=== PATIENT | male | born 1955 | race Two or more races ===

== ENCOUNTER → 2024-12-22 | Outpatient (CLI) | payer MEDICAID ==
[2024-12-22 13:50] LABS: Chloride 104 mmol/L (98-107); Potassium 3.7 mmol/L (3.5-5.1); Sodium 141 mmol/L (136-145)
[2024-12-22 13:51] LABS: Anion Gap 9 (5-15); Calcium 9.8 mg/dL (8.7-10.4); Carbon Dioxide 28 mmol/L (20-31)
[2024-12-22 13:56] LABS: BUN/Creatinine Ratio 15.7 (10.0-20.0); Blood Urea Nitrogen 19 mg/dL (9-23)
[2024-12-22 14:10] LABS: Glucose 108 mg/dL (74-106)
== END | disposition home or self-care (01) ==
LOC: LAB 13:13
PROVIDERS: ATTEND Urology
DX: N40.1 Benign prostatic hyperplasia with lower urinary tract symptoms (principal)
CPT/HCPCS: 36415; 80048; 84153

== ENCOUNTER 2025-01-05 15:53 | Inpatient (IN) | payer MEDICAID ==
[~2025-01-05] VITALS: Ht 160 cm; Wt 79.2 kg
--- NOTE | 2025-01-05 17:08 | ED.PDOC ---
General HPI Comments 69 y/o M, with PMHx of HTN and kidney stones presents to the ED for CC of tube placement. Patient reports, he was sent by urologist for nephrostomy tube placement d/t hydronephrosis. Patient endorses experiencing symptoms of flank pain and urinary retention as a result. Patient denies fever, scrotal swelling, penile discharge, nausea, or vomiting. No other symptoms or modifying factors present at this time. Chief Complaint: Flank Pain Time Seen by MD: 16:45 Reviewed notes: Nurses Notes, Medications, Allergies Allergies: Coded Allergies: NO KNOWN ALLERGIES (Unverified , 01/05/25) Information Source: Patient Mode of Arrival: Wheelchair Severity: Moderate Timing: Days Duration: Since onset Prehospital treatment: None Onset: Spontaneous Symptoms: Inability to void History of: None Penile discharge: None Modifying factors: None associated signs and symptoms: Flank Pain Past Medical History PAST MEDICAL HISTORY: HTN, Kidney Stones Surgical History: Denies all surgeries Family History Family History: Unknown Social History Smoker: Non-Smoker Alcohol: Denies ETOH Use Drugs: Denies Drug Use Lives In: Home Constitutional: denies: chills, diaphoresis, fatigue, fever, malaise, sweats, weakness, others EENTM: denies: blurred vision, double vision, ear bleeding, ear discharge, ear drainage, ear pain, ear ringing, eye pain, eye redness, hearing loss, mouth pain, mouth swelling, nasal discharge, nose bleeding, nose congestion, nose pain, photophobia, tearing, throat pain, throat swelling, voice changes, others Respiratory: denies: cough, hemoptysis, orthopnea, SOB at rest, shortness of breath, SOB with excertion, stridor, wheezing, others Cardiovascular: denies: chest pain, dizzy spells, diaphoresis, Dyspnea on exertion, edema, irregular heart beat, left arm pain, lightheadedness, palpitations, PND, syncope, others Genitourinary: reports: flank pain, others (urinary retention); denies: burning, dysuria, frequency, hematuria, incontinence, penile discharge, penile sore, pain, testicle pain, testicle swelling, urgency Neurological: denies: dizziness, fainting, headache, left sided numbness, left sided weakness, numbness, paresthesia, pre-existing deficit, right sided numbness, right sided weakness, seizure, speech problems, tingling, tremors, weakness, others Musculoskeletal: denies: back pain, gout, joint pain, joint swelling, muscle pain, muscle stiffness, neck pain, others Integumetry: denies: bruises, change in color, change in hair/nails, dryness, laceration, lesions, lumps, rash, wounds, others Allergic/Immunocompromised: denies: Difficulty Healing, Frequent Infections, Hives, Itching, others Hematologic/Lymphatic: denies: anemia, blood clots, easy bleeding, easy bruising, swollen glands, others Endocrine: denies: excessive hunger, excessive sweating, excessive thirst, excessive urination, flushing, intolerance to cold, intolerance to heat, unexplained weight gain, unexplained weight loss, others Psychiatric: denies: anxiety, bipolar disorder, depression, hopeless, panic disorder, schizophrenia, sleepless, suicidal, others All Other Systems: Reviewed and Negative Physical Exam General Appearance: No Apparent Distress, Normal HEENT: Normal ENT Inspection, Pharynx Normal Neck: Full Range of Motion, Non-Tender, Normal, Normal Inspection Respiratory: Chest Non-Tender, Lungs Clear, No Accessory Muscle Use, No Respiratory Distress, Normal Breath Sounds Cardiovascular: No Edema, No Murmur, No Gallop, Normal Peripheral Pulses, Regular Rate/Rhythm Breast Exam: Deferred Gastrointestinal: No Organomegaly, Non Tender, No Pulsatile Mass, Normal Bowel Sounds, Soft Genitalia: Deferred Pelvic: Deferred Rectal: Deferred Extremities: No calf tenderness, Normal capillary refill, Normal inspection, Normal range of motion, Non-tender, No pedal edema Musculoskeletal : Apperance: Normal Neurologic: Alert, curator II-XII nml as Tested, No Motor Deficits, Normal Affect, Normal Mood, No Sensory Deficits Cerebellar Function: Normal Reflexes: Normal Skin: Dry, Normal Color, Warm Lymphatic: No Adenopathy Was a procedure done? Was a procedure done?: No Differential Diagnosis Kidney stone (Female): N/A Kidney stone (Male): Pyelonephritis, Urolithiasis Urinary Problem (Female): N/A X-Ray, Labs, Meds, VS Vital Signs Date Time Temp Pulse Resp B/P (MAP) Pulse Ox O2 Delivery O2 Flow Rate FiO2 01/05/25 15:55 97.5 96 16 110/65 70 97.5 Lab Test 01/05/25 17:22 Range/Units White Blood Count 7.5 4.4-10.8 10^3/uL Red Blood Count 4.47 L 4.5-5.90 10^6/uL Hemoglobin 14.3 13.5-17.5 g/dL Hematocrit 41.5 41.0-53.0 % Mean Corpuscular Volume 92.8 80.0-100.0 fL Mean Corpuscular Hemoglobin 32.1 H 28.0-32.0 pg Mean Corpuscular Hemoglobin Concent 34.6 32.0-36.0 g/dL Red Cell Distribution Width 12.9 11.8-14.3 % Platelet Count 274 140-450 10^3/uL Mean Platelet Volume 8.0 6.9-10.8 fL Neutrophils (%) (Auto) 60.1 37.0-80.0 % Lymphocytes (%) (Auto) 30.9 10.0-50.0 % Monocytes (%) (Auto) 7.2 0.0-12.0 % Eosinophils (%) (Auto) 1.0 0.0-7.0 % Basophils (%) (Auto) 0.8 0.0-2.0 % Neutrophils # (Auto) 4.5 1.6-8.6 10 ^3/uL Lymphocytes # (Auto) 2.3 0.4-5.4 10 ^3/uL Monocytes # (Auto) 0.5 0-1.3 10 ^3/uL Eosinophils # (Auto) 0.1 0-0.8 10 ^3/uL Basophils # (Auto) 0.1 0-0.2 10 ^3/uL Nucleated Red Blood Cells 0.0 % Sodium Level 140 136-145 mmol/L Potassium Level 3.7 3.5-5.1 mmol/L Chloride Level 104 98-107 mmol/L Carbon Dioxide Level 25 20-31 mmol/L Anion Gap 11 5-15 Blood Urea Nitrogen 19 9-23 mg/dL Creatinine 1.02 0.700-1.30 mg/dL Glomerular Filtration Rate Calc 80 >90 mL/min BUN/Creatinine Ratio 18.6 10.0-20.0 Serum Glucose 95 74-106 mg/dL Calcium Level 9.6 8.7-10.4 mg/dL X-Ray, Labs, Meds, VS Comment Patient will be admitted for nephrostomy tube placement Recommend IR consult for placement Spoke with Dr. Marquez who advised us of this plan. Time of 1ST Reevaluation: 17:15 Reevaluation 1ST: Unchanged Patient Education/Counseling: Diagnosis, Treatment, Need For Follow Up Family Education/Counseling: No Family Present SEPSIS Sepsis Screen Date sepsis recognized/suspect: Jan 05, 2025 Time Sepsis recognized/suspect: 1555 Recent Procedure: No On Antibiotic Therapy: No Respiratory Rate >20: No Heart Rate >90: No Temp<36 C (96.8 F) or >38.3 C: No SBP <90 or MAP <65 mmHG: No New Acute Mental Status Change: No Is the patient on CPAP, BIPAP,: No Physician Orders Urinalysis (01/05/25 16:51) Vital Signs Date Time Temp Pulse Resp B/P (MAP) Pulse Ox O2 Delivery O2 Flow Rate FiO2 01/05/25 15:55 97.5 96 16 110/65 70 97.5 Laboratory Tests Test 01/05/25 17:22 White Blood Count 7.5 10^3/uL (4.4-10.8) Departure 1 Departure Time of Disposition: 18:44 Impression: Primary Impression: Hydronephrosis Qualified Codes: N13.30 - Unspecified hydronephrosis Disposition: 09 ADMITTED INPATIENT Condition: Stable Critical Care Note Critical Care Time?: No Stability Stability form required: No Heart Score Heart Score: Heart Score Response (Comments) Value History N/A 0 EKG N/A 0 Age N/A 0 Risk Factors N/A 0 Troponin N/A 0 Total 0 I personally scribed for STANLEY HUNTER HEAD DOFFER ([email or web address]) on 01/05/25 at 17:08. Electronically submitted by Kena Lopez [email or web address]). I personally scribed for STANLEY HUNTER HEAD DOFFER ([email or web address]) on 01/05/25 at 17:12. Electronically submitted by Kena Lopez [email or web address]). STANLEY HUNTER HEAD DOFFER Jan 05, 2025 17:08
[2025-01-05 17:31] LABS: Hematocrit 41.5 % (41.0-53.0); Hemoglobin 14.3 g/dL (13.5-17.5); Mean Corpuscular Hemoglobin 32.1 pg (28.0-32.0); Mean Corpuscular Volume 92.8 fL (80.0-100.0); Nucleated Red Blood Cells % 0.0 %
[2025-01-05 17:39] LABS: Chloride 104 mmol/L (98-107); Potassium 3.7 mmol/L (3.5-5.1); Sodium 140 mmol/L (136-145)
[2025-01-05 17:40] LABS: Anion Gap 11 (5-15); Calcium 9.6 mg/dL (8.7-10.4); Carbon Dioxide 25 mmol/L (20-31)
[2025-01-05 17:45] LABS: BUN/Creatinine Ratio 18.6 (10.0-20.0); Blood Urea Nitrogen 19 mg/dL (9-23); Glucose 95 mg/dL (74-106)
--- NOTE | 2025-01-05 22:58 | DVHHP2 ---
History of Present Illness Reason for Visit: Flank pain History of Present Illness 69-year-old male presents for evaluation of flank pain. Patient presents with complaints of right-sided flank pain and intermittent urinary retention. He was seen by his urologist who advised him to present for admission for possible nephrostomy tube placement. Patient denies fever or chills. Past Medical History CVA, hypertension, kidney stones Past Surgical History Denies Family History Noncontributory Smoke: No ALCOHOL: none Drugs: None Lives: with Family Review of Systems Review of Systems Review of systems are currently negative otherwise addressed in HPI. Allergies: Coded Allergies: NO KNOWN ALLERGIES (Unverified , 01/05/25) Exam Vital Signs Vital Signs Date Time Temp Pulse Resp B/P (MAP) Pulse Ox O2 Delivery O2 Flow Rate FiO2 01/05/25 15:55 97.5 96 16 110/65 70 97.5 Exam Gen: 69-year-old male in mild distress Skin: Warm, dry, normal color and texture, no rash. HEENT: Normocephalic atraumatic, mucous membranes moist and pink. Neck: Cervical and supraclavicular nodes normal without enlargement, trachea is midline, thyroid gland is normal without masses. Pulmonary: Clear to auscultation and percussion bilaterally. Cardiac: Regular rate and rhythm. No murmur Abdomen: Soft, nontender, nondistended, bowel sounds present all 4 quadrants, no guarding, no rigidity, no organomegaly. Extremities: No cyanosis, clubbing, no edema Neuro: Cranial nerves II through XII grossly intact, normal affect and speech, no focal motor deficits. Labs/Xrays Labs Test 01/05/25 17:22 01/05/25 16:05 Range/Units White Blood Count 7.5 4.4-10.8 10^3/uL Red Blood Count 4.47 L 4.5-5.90 10^6/uL Hemoglobin 14.3 13.5-17.5 g/dL Hematocrit 41.5 41.0-53.0 % Mean Corpuscular Volume 92.8 80.0-100.0 fL Mean Corpuscular Hemoglobin 32.1 H 28.0-32.0 pg Mean Corpuscular Hemoglobin Concent 34.6 32.0-36.0 g/dL Red Cell Distribution Width 12.9 11.8-14.3 % Platelet Count 274 140-450 10^3/uL Mean Platelet Volume 8.0 6.9-10.8 fL Neutrophils (%) (Auto) 60.1 37.0-80.0 % Lymphocytes (%) (Auto) 30.9 10.0-50.0 % Monocytes (%) (Auto) 7.2 0.0-12.0 % Eosinophils (%) (Auto) 1.0 0.0-7.0 % Basophils (%) (Auto) 0.8 0.0-2.0 % Neutrophils # (Auto) 4.5 1.6-8.6 10 ^3/uL Lymphocytes # (Auto) 2.3 0.4-5.4 10 ^3/uL Monocytes # (Auto) 0.5 0-1.3 10 ^3/uL Eosinophils # (Auto) 0.1 0-0.8 10 ^3/uL Basophils # (Auto) 0.1 0-0.2 10 ^3/uL Nucleated Red Blood Cells 0.0 % Sodium Level 140 136-145 mmol/L Potassium Level 3.7 3.5-5.1 mmol/L Chloride Level 104 98-107 mmol/L Carbon Dioxide Level 25 20-31 mmol/L Anion Gap 11 5-15 Blood Urea Nitrogen 19 9-23 mg/dL Creatinine 1.02 0.700-1.30 mg/dL Glomerular Filtration Rate Calc 80 >90 mL/min BUN/Creatinine Ratio 18.6 10.0-20.0 Serum Glucose 95 74-106 mg/dL Calcium Level 9.6 8.7-10.4 mg/dL SEPSIS Sepsis Screen Date sepsis recognized/suspect: Jan 05, 2025 Time Sepsis recognized/suspect: 1554 Recent Procedure: No On Antibiotic Therapy: No Respiratory Rate >20: No Heart Rate >90: No Temp<36 C (96.8 F) or >38.3 C: No SBP <90 or MAP <65 mmHG: No New Acute Mental Status Change: No Is the patient on CPAP, BIPAP,: No Physician Orders Urinalysis (01/05/25 16:51) Admit (01/05/25 19:45) Ct Ab Pel Wo Con-No Oral Or Iv (01/05/25 22:51) * Urology Consult (01/05/25 22:51) Basic Metabolic Panel (01/06/25 04:00) Lisinopril Tablet (Zestril Tablet) (01/06/25 10:00) Clonidine Hcl Tablet (Catapres Tablet) (01/05/25 23:00) Hydrocodone-Acet 5/325mg Tab ([place] 5/32 (01/05/25 23:00) Ondansetron Hcl (Zofran) (01/05/25 23:00) Complete Blood Count (01/06/25 04:00) Cardiac Diet-2gna,Lofat,Lochol (01/06/25 Breakfast) Condition: Stable (01/05/25 22:51) Acetaminophen Tablet (Tylenol Tablet) (01/05/25 23:00) Bedrest With Bathroom Privileg (01/05/25 22:51) Vital Signs Date Time Temp Pulse Resp B/P (MAP) Pulse Ox O2 Delivery O2 Flow Rate FiO2 01/05/25 15:55 97.5 96 16 110/65 70 97.5 Laboratory Tests Test 01/05/25 17:22 White Blood Count 7.5 10^3/uL (4.4-10.8) Assessment/Plan Assessment/Plan Assessment Urinary retention ? Hydronephrosis History of CVA with right-sided weakness Hypertension Plan Admit the patient to [facility] to the hospitalist CT abdomen and pelvis pending Urology consultation Pain management Continue treatment per orders. Plan discussed with: Patient My Orders Orders - JULIANA TALAVERA Procedure Category Date Status Time Admit ADMIT 01/05/25 Transmitted 19:45 Ct Ab Pel Wo Con-No CT 01/05/25 Logged Oral Or Iv 22:51 * Urology Consult CONS 01/05/25 Transmitted 22:51 Basic Metabolic Panel LAB 01/06/25 Verified 04:00 Lisinopril Tablet PHA 01/06/25 Transmitted (Zestril Tablet) 10:00 Clonidine Hcl Tablet PHA 01/05/25 Transmitted (Catapres Tablet) 23:00 Hydrocodone-Acet PHA 01/05/25 Transmitted 5/325mg Tab ([place] 23:00 Ondansetron Hcl PHA 01/05/25 Transmitted (Zofran) 23:00 Complete Blood Count LAB 01/06/25 Verified 04:00 Cardiac DIET 01/06/25 Transmitted Diet-2gna,Lofat,Lochol Breakfast Condition: Stable BEATRIZ 01/05/25 Transmitted 22:51 Acetaminophen Tablet PHA 01/05/25 Transmitted (Tylenol Tablet) 23:00 Bedrest With Bathroom BEATRIZ 01/05/25 Transmitted Privileg 22:51 Date of Service: Jan 05, 2025 Billing Provider: JULIANA TALAVERA Common Visit Codes: [id number] INP/OBS CARE (MOD) JULIANA TALAVERA Jan 05, 2025 22:58
[2025-01-05] MEDS ORDERED: ONDANSETRON HCL 4 MG/2 ML VIAL IV PRN (23:00)
[2025-01-05] MEDS ORDERED: HYDROcodone-ACET 5/325MG TAB PO PRN (23:00)
[2025-01-05] MEDS ORDERED: ACETAMINOPHEN 325 MG TAB PO PRN (23:00)
[2025-01-05 23:20] LABS: Urine Protein, UAD Negative (Negative)
[2025-01-05 23:25] VITALS: BP 130/64; PULSE 60; RESP 19; TEMP 98.3; O2SAT 98
[2025-01-05] MEDS ORDERED: LISI20TA56 PO (23:26)
[2025-01-05] MEDS ORDERED: ASPI1TAB20 PO (23:26)
[2025-01-05] MEDS ORDERED: TEMA15CA2 PO (23:26)
[2025-01-05] MEDS ORDERED: CHOL20007 PO (23:26)
[2025-01-05] MEDS ORDERED: ATOR80TA PO (23:26)
[2025-01-05] MEDS ORDERED: METF-370 PO (23:26)
[2025-01-05] MEDS ORDERED: HYDR25TA4 PO (23:26)
--- NOTE | 2025-01-05 23:38 | DVH ---
COMPUTERIZED TOMOGRAPHY ABDOMEN AND PELVIS WITHOUT CONTRAST REASON FOR EXAM: flank pain COMPARISON: None TECHNIQUE: Spiral scans were acquired from the diaphragm to the symphysis pubis without intravenous c ontrast administration. 2-D coronal and sagittal reformatted images were provided. Radiation optimiza tion: All CT scans at this facility use at least one of these dose optimization techniques: Automated exposure control mA and/or kV adjustment per patient size (includes targeted exams where dose is mat ched to clinical indication) or iterative reconstruction. RADIATION DOSE: CTDI: 6.93 mGy DLP: 357.44 mGy-cm FINDINGS: The visualized lung bases are grossly clear. There is no pleural effusion. There is no pericardial e ffusion. There are coronary artery calcifications. The spleen is not enlarged. The liver is normal in size and contour. No calcified gallstone is ident ified. Evaluation of the abdominal contents is suboptimal in the absence of intravenous contrast. Ev aluation is further degraded by streak artifact from the patient's arms. Unenhanced appearance of the pancreas is grossly unremarkable. The adrenal glands are normal. There are numerous calculi in both kidneys measuring from 1 mm to 4 mm. There is severe left hydroureteronephrosis with cortical thinnin g. There is a 5 mm x 12 mm calculus within the proximal third of the left ureter. There is a 3 mm tonny culus along the dependent wall of the urinary bladder. There is trace air within the nondependent uri nary bladder. The prostate is enlarged. The colonic stool burden is small to moderate. The appendix i s normal. There is no distention of the small bowel. There is no abdominal aortic aneurysm. No free fluid is identified in the abdomen or pelvis. No pathologic lymphadenopathy is identified by size cri teria. There are degenerative changes in the visualized spine. No acute osseous abnormality is identi fied. IMPRESSION: There is a 12 mm calculus in the proximal third of the left ureter causing severe hydroureteronephros is. There is renal cortical thinning on the left consistent with a chronically obstructed collecting system. Numerous additional calculi within both kidneys measuring up to 4 mm.
[2025-01-06] VITALS (11 sets, daily range): BP systolic 86–148; BP diastolic 53–88; PULSE 50–66; RESP 12–20; TEMP 97.6–98.7; O2SAT 95–98
[2025-01-06 06:24] LABS: Chloride 102 mmol/L (98-107); Potassium 3.6 mmol/L (3.5-5.1); Sodium 140 mmol/L (136-145)
[2025-01-06 06:25] LABS: Anion Gap 13 (5-15); Calcium 9.3 mg/dL (8.7-10.4); Carbon Dioxide 25 mmol/L (20-31)
[2025-01-06 06:30] LABS: BUN/Creatinine Ratio 28.0 (10.0-20.0); Glucose 77 mg/dL (74-106)
[2025-01-06 06:32] LABS: Blood Urea Nitrogen 28 mg/dL (9-23)
[2025-01-06 09:47] LABS: Hematocrit 39.9 % (41.0-53.0); Hemoglobin 14.0 g/dL (13.5-17.5); Mean Corpuscular Hemoglobin 32.3 pg (28.0-32.0); Mean Corpuscular Volume 92.4 fL (80.0-100.0); Nucleated Red Blood Cells % 0.1 %
[2025-01-06 10:06] LABS: Triglycerides 86 mg/dL (< 150)
[2025-01-06 10:08] LABS: Cholesterol 130 mg/dL (< 200); HDL Cholesterol 41 mg/dL (40-59)
[2025-01-06] MEDS: LISINOPRIL 5 MG TAB PO SCH (10:54)
[2025-01-06 13:11] LABS: INR 1.08 (0.9-1.15); Partial Thromboplastin Time 28.3 SEC (24.5-34.5); Prothrombin Time 11.4 sec (9.3-11.8)
--- NOTE | 2025-01-06 13:16 | DVHINCON2 ---
Date of service: Jan 06, 2025 Referring Physician Reason for Consultation Patient was sent from clinic yesterday by me after the CT scan findings of severe left hydronephrosis. He has flank pain and will need nephrostomy tube placement per IR service. Chief Complaint: Flank Pain Reviewed notes: Nurses Notes, Medications, Allergies Allergies: Coded Allergies: NO KNOWN ALLERGIES (Unverified , 01/05/25) Information Source: Patient Mode of Arrival: Wheelchair Severity: Moderate Timing: Days Duration: Since onset Prehospital treatment: None Onset: Spontaneous Symptoms: Inability to void History of: None Penile discharge: None Modifying factors: None associated signs and symptoms: Flank Pain History of Present Illness Left flank pain due to severe left hydronephrosis. Patient sent to ER to be admitted to hospital for left PNT placement by IR service. Post nephrostomy lithotripsy of bilateral ureteral stones TBA. Past Medical History HTN, Kidney Stones Family History: Patient reports no known family medical history. Allergies: Coded Allergies: NO KNOWN ALLERGIES (Unverified , 01/05/25) Home Meds Reported Medications Aspirin (Aspir-81) 81 Mg Tab, 1 TAB PO DAILY, #30 TAB 5 Refills 01/05/25 Cholecalciferol (VITAMIN D3) 2,000 Unit Tab, 1 TAB PO DAILY, #30 TAB 5 Refills 01/05/25 Temazepam (Restoril) 15 Mg Cp, 1 CAP PO QPM, #30 CAP 1 Refill 01/05/25 Metformin Hydrochloride (Metformin Hcl) 500 Mg Tab, 1 TAB PO BID, #60 TAB 3 Refills 01/05/25 Lisinopril (Lisinopril) 20 Mg Tab, 1 TAB PO DAILY, #30 TAB 5 Refills 01/05/25 Hydrochlorothiazide (Hydrochlorothiazide) 25 Mg Tab, 1 TAB PO DAILY, #30 TAB 5 Refills 01/05/25 Atorvastatin Calcium (Lipitor) 80 Mg Tab, 1 TAB PO DAILY, #30 TAB 5 Refills 01/05/25 Current Medications Current Medications Medications (Trade) Dose Ordered Sig/Josep Route PRN Reason Start Time Stop Time Status Last Admin Lisinopril (Zestril Tablet) 10 mg DAILY PO 01/06/25 10:00 01/06/25 10:54 Clonidine HCl (Catapres Tablet) 0.1 mg Q6HP PRN PO SBP>160 01/05/25 23:00 Acetaminophen/ Hydrocodone Bitart ([place] 5/325MG Tab) 1 tab Q4HP PRN PO MODERATE PAIN (4-6 PAIN SCALE) 01/05/25 23:00 Ondansetron HCl (Zofran) 4 mg Q4HP PRN IV NAUSEA / VOMITING 01/05/25 23:00 Acetaminophen (Tylenol Tablet) 650 mg Q6HP PRN PO PAIN SCALE 1-3 OR TEMP>100.4 01/05/25 23:00 Review of Systems Constitutional: denies: chills, diaphoresis, fatigue, fever, malaise, sweats, weakness, others EENTM: denies: blurred vision, double vision, ear bleeding, ear discharge, ear drainage, ear pain, ear ringing, eye pain, eye redness, hearing loss, mouth pain, mouth swelling, nasal discharge, nose bleeding, nose congestion, nose pain, photophobia, tearing, throat pain, throat swelling, voice changes, others Respiratory: denies: cough, hemoptysis, orthopnea, SOB at rest, shortness of breath, SOB with excertion, stridor, wheezing, others Cardiovascular: denies: chest pain, dizzy spells, diaphoresis, Dyspnea on exertion, edema, irregular heart beat, left arm pain, lightheadedness, palpitations, PND, syncope, others Genitourinary: reports: flank pain, others (urinary retention); denies: burning, dysuria, frequency, hematuria, incontinence, penile discharge, penile sore, pain, testicle pain, testicle swelling, urgency Neurological: denies: dizziness, fainting, headache, left sided numbness, left sided weakness, numbness, paresthesia, pre-existing deficit, right sided numbness, right sided weakness, seizure, speech problems, tingling, tremors, weakness, others Musculoskeletal: denies: back pain, gout, joint pain, joint swelling, muscle pain, muscle stiffness, neck pain, others Integumetry: denies: bruises, change in color, change in hair/nails, dryness, laceration, lesions, lumps, rash, wounds, others Allergic/Immunocompromised: denies: Difficulty Healing, Frequent Infections, Hives, Itching, others Hematologic/Lymphatic: denies: anemia, blood clots, easy bleeding, easy bruising, swollen glands, others Endocrine: denies: excessive hunger, excessive sweating, excessive thirst, excessive urination, flushing, intolerance to cold, intolerance to heat, unexplained weight gain, unexplained weight loss, others Psychiatric: denies: anxiety, bipolar disorder, depression, hopeless, panic disorder, schizophrenia, sleepless, suicidal, others All Other Systems: Reviewed and Negative Vital Signs Vital Signs Date Time Temp Pulse Resp B/P (MAP) Pulse Ox O2 Delivery O2 Flow Rate FiO2 01/06/25 10:54 101/83 01/06/25 09:00 97.6 50 12 98 97.6 01/05/25 23:26 Room Air* 0 21 Physical Exam General Appearance: No Apparent Distress, Normal HEENT: Normal ENT Inspection, Pharynx Normal Neck: Full Range of Motion, Non-Tender, Normal, Normal Inspection Respiratory: Chest Non-Tender, Lungs Clear, No Accessory Muscle Use, No Respiratory Distress, Normal Breath Sounds Cardiovascular: No Edema, No Murmur, No Gallop, Normal Peripheral Pulses, Regular Rate/Rhythm Breast Exam: Deferred Gastrointestinal: No Organomegaly, Non Tender, No Pulsatile Mass, Normal Bowel Sounds, Soft. 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, No Motor Deficits, Normal Affect, Normal Mood, No Sensory Deficits Cerebellar Function: Normal Reflexes: Normal Skin: Dry, Normal Color, Warm Labs/Diagnostic Data Labs Test 01/06/25 11:59 01/06/25 09:00 01/06/25 04:30 01/05/25 16:05 Range/Units White Blood Count 6.9 4.4-10.8 10^3/uL Red Blood Count 4.32 L 4.5-5.90 10^6/uL Hemoglobin 14.0 13.5-17.5 g/dL Hematocrit 39.9 L 41.0-53.0 % Mean Corpuscular Volume 92.4 80.0-100.0 fL Mean Corpuscular Hemoglobin 32.3 H 28.0-32.0 pg Mean Corpuscular Hemoglobin Concent 35.0 32.0-36.0 g/dL Red Cell Distribution Width 13.1 11.8-14.3 % Platelet Count 272 140-450 10^3/uL Mean Platelet Volume 8.3 6.9-10.8 fL Neutrophils (%) (Auto) 64.0 37.0-80.0 % Lymphocytes (%) (Auto) 29.9 10.0-50.0 % Monocytes (%) (Auto) 4.8 0.0-12.0 % Eosinophils (%) (Auto) 0.7 0.0-7.0 % Basophils (%) (Auto) 0.6 0.0-2.0 % Neutrophils # (Auto) 4.4 1.6-8.6 10 ^3/uL Lymphocytes # (Auto) 2.1 0.4-5.4 10 ^3/uL Monocytes # (Auto) 0.3 0-1.3 10 ^3/uL Eosinophils # (Auto) 0 0-0.8 10 ^3/uL Basophils # (Auto) 0 0-0.2 10 ^3/uL Nucleated Red Blood Cells 0.1 % Sodium Level 140 136-145 mmol/L Potassium Level 3.6 3.5-5.1 mmol/L Chloride Level 102 98-107 mmol/L Carbon Dioxide Level 25 20-31 mmol/L Anion Gap 13 5-15 Blood Urea Nitrogen 28 H 9-23 mg/dL Creatinine 1.00 0.700-1.30 mg/dL Glomerular Filtration Rate Calc 81 >90 mL/min BUN/Creatinine Ratio 28.0 H 10.0-20.0 Serum Glucose 77 74-106 mg/dL Calcium Level 9.3 8.7-10.4 mg/dL Triglycerides Level 86 < 150 mg/dL Cholesterol Level 130 < 200 mg/dL LDL Cholesterol 74 < 100 mg/dL HDL Cholesterol 41 40-59 mg/dL Urine Color Light-yellow Yellow Urine Clarity Clear Clear Urine pH 6.0 5.0-9.0 Urine Specific [place] 1.018 1.001-1.035 Urine Protein Negative Negative Urine Ketones Negative Negative Urine Blood Trace H Negative /uL Urine Nitrite Negative Negative Urine Bilirubin Negative Negative Urine Urobilinogen Normal Negative mg/dL Urine Leukocyte Esterase Negative Negative /uL Urine RBC 9 0 - 3 /hpf Urine Microscopic WBC 7 H 0-3 /HPF Urine Squamous Epithelial Cells Few <5 /hpf Urine Bacteria None seen None Seen /hpf Urine Mucus Few None Seen Urine Glucose Normal Normal mg/dL PATIENT: BURKE ROBERTST: [id number] UNIT: [id number] : 1955 LOC: OVERFLOW ROOM / BED: [facility]-ER / A AGE / SEX: 69 / M ADM STATUS: ADM IN SERVICE 50 ORDERING PHYSICIAN: JULIANA TALAVERA AGACNJaswinder PROCEDURE(s): ABPL - CT AB PEL WO CON-NO ORAL OR IV REASON: flank pain ORDER NUMBER(s): [id number], ACCESSION NUMBER(s): [id number] COMPUTERIZED TOMOGRAPHY ABDOMEN AND PELVIS WITHOUT CONTRAST REASON FOR EXAM: flank pain COMPARISON: None TECHNIQUE: Spiral scans were acquired from the diaphragm to the symphysis pubis without intravenous contrast administration. 2-D coronal and sagittal reformatted images were provided. Radiation optimization: All CT scans at this facility use at least one of these dose optimization techniques: Automated exposure control mA and/or kV adjustment per patient size (includes targeted exams where dose is matched to clinical indication) or iterative reconstruction. RADIATION DOSE: CTDI: 6.93 mGy DLP: 357.44 mGy-cm FINDINGS: The visualized lung bases are grossly clear. There is no pleural effusion. There is no pericardial effusion. There are coronary artery calcifications. The spleen is not enlarged. The liver is normal in size and contour. No calcif ied gallstone is identified. Evaluation of the abdominal contents is suboptimal in the absence of intravenous contrast. Evaluation is further degraded by streak artifact from the patient's arms. Unenhanced appearance of the pancreas is grossly unremarkable. The adrenal glands are normal. There are numerous calculi in both kidneys measuring from 1 mm to 4 mm. There is severe left h ydroureteronephrosis with cortical thinning. There is a 5 mm x 12 mm calculus within the proximal third of the left ureter. There is a 3 mm calculus along the dependent wall of the urinary bladder. There is trace air within the nondependent urinary bladder. The prostate is enlarged. The colonic stool burden is small to moderate. The appendix is normal. There is no distention of the small bowel. There is no abdominal aortic aneurysm. No free fluid is identified in the abdomen or pelvis. No pathologic lymphadenopathy is identified by size criteria. There are degenerative changes in the visualized spine. No acute osseous abnormality is identified. IMPRESSION: There is a 12 mm calculus in the proximal third of the left ureter causing severe hydroureteronephrosis. There is renal cortical thinning on the left consistent with a chronically obstructed collecting system. Numerous additional calculi within both kidneys measuring up to 4 mm. ATED BY: TRAE SOMERS MD DICTATED DATE/TIME: 01/05/252334 SIGNED BY: TRAE SOMERS MD SIGNED DATE/TIME: 01/05/252334 Assessment 12 mm left proximal ureteral stone with severe hydronephrosis Left renal atrophy, chronic BPH bilateral renal stones, nonobstructing Plan/Recommendation Left PNT placement for pain and obstructive uropathy Mag 3 Renal Scan with split renal function and lasix washout If left renal function is nil, then nephrectomy may be needed, however, given his symptoms, nephrostomy tube placement is still indicated. Plan discussed with: Patient, Other CARLOS CHADWICK MD Jan 06, 2025 13:16
--- NOTE | 2025-01-06 13:37 | DVH ---
XY CHEST PORTABLE, HISTORY: Procedure protocol COMPARISON: None None TECHNICAL DATA: 1 view of the chest was obtained. FINDINGS: Lines and tubes: None Cardiomediastinal silhouette: normal Pulmonary vasculature: normal Lung expansion: normal Lung airspace: normal Lung interstitium: normal Pleura: normal Pneumothorax: no Bones: Unremarkable Other: no IMPRESSION: No acute intrathoracic abnormality.
[2025-01-06] MEDS ORDERED: fentaNYL CITRATE 100 MCG/2 ML VL ONE (15:13)
[2025-01-06] MEDS ORDERED: MIDAZOLAM HCL 2MG/2ML 2ml VIAL (1mg/ml) ONE (15:14)
[2025-01-06] MEDS ORDERED: LIDOCAINE 2%HCL (LOCAL ANESTH.) INJ 20ML MDV ONE (15:14)
[2025-01-06] MEDS ORDERED: cefTRIAXone 1GM/50ML D5W 50 ML IV ONE (15:28)
--- NOTE | 2025-01-06 16:00 | DVH ---
XY PERCUTANEOUS NEPHROSTOMY, HISTORY: Severe left Hydronephrosis from a ureteral kidney stone. PROCEDURE: Informed consent was obtained. The patient was placed on the fluoroscopic table in a prone position and IV sedation administered. The left flank was prepped with chlorhexidine which was allow ed to dry and draped in the usual sterile fashion. 1 gram of ceftriaxone was given IV. Time out was p erformed. and the soft tissues infiltrated with 1% lidocaine local anesthetic. Utilizing ultrasound g uidance, a 21 gauge Accu Stick needle was advanced from a posterolateral approach into an lower pole calyx, and a small amount of contrast was injected under fluoroscopy to confirm positioning. Over a m andril wire, exchange was made to a non-vascular access set, through which was advanced an 0.035 wire . Following serial dilation, an 8.5 Turkish multipurpose nephrostomy catheter was placed with tip pigt hiram within the renal pelvis. Position was confirmed with antegrade nephrostogram. The catheter was secured in place and connected to gravity drainage. A sterile dressing was applied. No immediate comp lication was identified. DAP 56 FLUOROSCOPY TIME: 1.5 minutes. CONTRAST USED: 15 mL. SEDATION: Dr. Alanis Schwarz was personally responsible for the administration of moderate sedation during the procedure performed, including the use of an independent trained observer who had no other duties during the procedure. The drugs utilized were IV fentanyl and versed (see nursing log for details). The total time of supervision by the attending physician was approximately 30 minutes. FINDINGS: Dilated right renal collecting system involving the calyces/renal pelvis/ureter. New 8.5 bolivian nephrostomy tube via a posterior lower pole calyceal access, with loop coiled within the renal pelvis. IMPRESSION: Severe left hydronephrosis , status post placement of 8.5 bolivian left percutaneous nephrostomy [address]. PLAN: Routine catheter care.
--- NOTE | 2025-01-06 16:00 | DVH ---
XY PERCUTANEOUS NEPHROSTOMY, HISTORY: Severe left Hydronephrosis from a ureteral kidney stone. PROCEDURE: Informed consent was obtained. The patient was placed on the fluoroscopic table in a prone position and IV sedation administered. The left flank was prepped with chlorhexidine which was allow ed to dry and draped in the usual sterile fashion. 1 gram of ceftriaxone was given IV. Time out was p erformed. and the soft tissues infiltrated with 1% lidocaine local anesthetic. Utilizing ultrasound g uidance, a 21 gauge Accu Stick needle was advanced from a posterolateral approach into an lower pole calyx, and a small amount of contrast was injected under fluoroscopy to confirm positioning. Over a m andril wire, exchange was made to a non-vascular access set, through which was advanced an 0.035 wire . Following serial dilation, an 8.5 Kinyarwanda multipurpose nephrostomy catheter was placed with tip pigt hiram within the renal pelvis. Position was confirmed with antegrade nephrostogram. The catheter was secured in place and connected to gravity drainage. A sterile dressing was applied. No immediate comp lication was identified. DAP 56 FLUOROSCOPY TIME: 1.5 minutes. CONTRAST USED: 15 mL. SEDATION: Dr. Alanis Schwarz was personally responsible for the administration of moderate sedation during the procedure performed, including the use of an independent trained observer who had no other duties during the procedure. The drugs utilized were IV fentanyl and versed (see nursing log for details). The total time of supervision by the attending physician was approximately 30 minutes. FINDINGS: Dilated right renal collecting system involving the calyces/renal pelvis/ureter. New 8.5 kuwaiti nephrostomy tube via a posterior lower pole calyceal access, with loop coiled within the renal pelvis. IMPRESSION: Severe left hydronephrosis , status post placement of 8.5 ku[place]i left percutaneous nephrostomy [address]. PLAN: Routine catheter care.
[2025-01-06] MEDS ORDERED: DEXTROSE (50%) 50ML SYRG IV PRN (18:15)
--- NOTE | 2025-01-06 18:25 | DVHPNRES ---
Progress Note Date Seen: Jan 06, 2025 Resident Creating Document: YUDELKA FAIRBANKS RESIDENT Medical Necessity Reason Pt with a Central, PICC or Fol: No Subjective Review of Systems 69-year-old male presents for the evaluation of flank pain. Patient went to his primary care physician a few days back and was stool that he needed to visit a urologist. He met Dr. Pierre on Saturday who told him he had an increased size of prostate and kidney stone. Patient now presents with right-sided flank pain and intermittent urinary retention. Dr. Blum advised him to present for admission for possible nephrostomy tube placement. Patient denies any fever, chills, nausea, vomiting, blood in the urine or increased frequency at this time. PMH: Diabetes mellitus, CVA, hypertension, kidney stones PSH: Denies Family history: Reviewed and noncontributory to the management of this case Social history: Patient denies smoking, he quit 25 years ago, he drinks alcohol occasionally and does not take any illicit drugs. He lives with his family. Allergies: None Home medication: Aspirin 81 mg, temazepam 50 mg, hydrochlorothiazide 25 mg, Lipitor 80 mg, metformin 500 mg, lisinopril 20 mg ROS: 01/06/2025: Patient was seen and examined by me at the bedside. Overnight events were reviewed. Patient reports that he has slight pain in the right flank still. No active complaints. CT abdomen and pelvis shows: there is a 12 mm calculus in the proximal third of the left ureter causing severe hydroureteronephrosis. There is renal cortical thinning on the left consistent with a chronically obstructed collecting system; Numerous additional calculi within both kidneys measuring up to 4 mm. He suggested Left PNT placement for pain and obstructive uropathy, Mag 3 Renal Scan with split renal function and lasix washout. If left renal function is nil, then nephrectomy may be needed, however, given his symptoms, nephrostomy tube placement is still indicated. Patient underwent the procedure, notes pending. Objective vital signs Vital Sign Date Time Temp Pulse Resp B/P (MAP) Pulse Ox O2 Delivery O2 Flow Rate FiO2 01/06/25 17:00 97.8 60 16 117/88 (98) 97.8 01/06/25 16:30 96 01/06/25 08:00 Room Air* 0 21 Total Intake and Output 01/05/25 01/05/25 01/06/25 15:00 23:00 07:00 Intake Total 0 ml Output Total 150 ml Balance -150 ml medications Current Medications Medications Dose Ordered Sig/Josep Route Start Time Stop Time Status Last Admin Dose Admin Lisinopril 10 mg DAILY PO 01/06/25 10:00 01/06/25 10:54 10 MG Clonidine HCl 0.1 mg Q6HP PRN PO 01/05/25 23:00 Acetaminophen/ Hydrocodone Bitart 1 tab Q4HP PRN PO 01/05/25 23:00 Ondansetron HCl 4 mg Q4HP PRN IV 01/05/25 23:00 Acetaminophen 650 mg Q6HP PRN PO 01/05/25 23:00 Examination Pt is lying on bed General Appearance: Alert, Oriented X3, Cooperative, Not in acute distress HEENT: Atraumatic, Mucous membranes moist/pink Respiratory: Clear to auscultation, Normal air movement, No added sounds Cardiovascular: Regular rate, Normal S1, Normal S2, No murmurs Abdominal: Active bowel sounds, Soft, no distention, tenderness suprapubic region, right flank Extremities: No edema, Normal pulses, No tenderness/swelling, presence of linear scar [id number], unsteady gait and requires wheelchair sometimes to ambulate Skin: No Significant rash, except past surgical scars Neuro: Normal speech, sensorimotor deficits none Psych/Mental Status: Mental status NL, Mood NL Nurse was there as printing machine operator tape rules during examination laboratory and microbiology Laboratory Tests 01/06/25 09:00 01/06/25 04:30 Test 01/06/25 04:30 Range/Units Serum Glucose 77 74-106 mg/dL Labs and/or images reviewed: Labs reviewed by me, Image(s) reviewed by me Problem List/Assessment/Plan Problem List/Assessment/Plan # flank pain due to left ureteral stone with severe hydronephrosis #Left renal atrophy, chronic #BPH #bilateral renal stones, nonobstructing -pain management with [place] 5/325 mg q.4 PRN -NPO -CT abdomen showed: There is a 12 mm calculus in the proximal third of the left ureter causing severe hydroureteronephrosis. There is renal cortical thinning on the left consistent with a chronically obstructed collecting system; Numerous additional calculi within both kidneys measuring up to 4 mm. -urology consult suggested: Left PNT placement for pain and obstructive uropathy, Mag 3 Renal Scan with split renal function and lasix washout. If left renal function is nil, then nephrectomy may be needed, however, given his symptoms, nephrostomy tube placement is still indicated -01/06: status post placement of 8.5 icelandic left percutaneous nephrostomy catheter. -ceftriaxone 1g iv daily #Diabetes mellitus type 2 -HbA1c, 5.3 -mild sliding scale insulin #History of CVA -Patient to continue aspirin 81 mg, Lipitor 80 mg #hypertension -hydrochlorothiazide and lisinopril on hold as bp is controlled GI prophylaxis: protonix 40mg po daily DVT prophylaxis: scd Diet: renal Goals of care discussed with the patient for more than 27 minutes: Full code status Case discussed with , patient and nurse. Plan discussed with: Patient, Other My Orders My Orders Orders - YUDELKA FAIRBANKS Procedure Category Date Status Time Hepatic Panel LAB 01/06/25 Logged 14:11 Percutaneous XY 01/06/25 Resulted Nephrostomy 15:46 Date of Service: Jan 06, 2025 Billing Provider: ELVIE COUGHLIN MD Common Visit Codes: [id number] INP/OBS CARE(HIGH) YUDELKA FAIRBANKS Jan 06, 2025 18:25 ELVIE COUGHLIN MD Jan 07, 2025 00:02
[2025-01-06 18:49] LABS: Alanine Aminotransferase 20.0 U/L (7-40); Albumin 4.7 g/dL (3.2-4.8); Alkaline Phosphatase 63.0 U/L (46-116); Bilirubin, Direct 0.2 mg/dL (<0.3); Bilirubin, Total 0.6 mg/dL (0.2-1.0); Total Protein 7.2 g/dL (5.7-8.2)
[2025-01-06] MEDS: PANTOPRAZOLE 40 MG TAB PO ONE (19:31)
[2025-01-06] MEDS ORDERED: MORPHINE SULFATE INJ 2 MG/ml SYRG IV PRN (20:00)
[2025-01-06] MEDS: TEMAZEPAM 15 MG CAP PO ONE (21:32)
[2025-01-06] MEDS: ACCU-CHEK COMFORT CURVE STRIP VI SCH (21:36)
[2025-01-06] MEDS: InsuLIN REG 1unit/0.01ml Soln (100units/ml) SC SCH (21:39)
[2025-01-07] VITALS (8 sets, daily range): BP systolic 114–153; BP diastolic 69–88; PULSE 64–91; RESP 14–18; TEMP 97.2–98.3; O2SAT 96–99
[2025-01-07 06:23] LABS: Hematocrit 40.4 % (41.0-53.0); Hemoglobin 14.2 g/dL (13.5-17.5); Mean Corpuscular Hemoglobin 32.8 pg (28.0-32.0); Mean Corpuscular Volume 93.3 fL (80.0-100.0); Nucleated Red Blood Cells % 0.1 %
[2025-01-07 06:36] LABS: Anion Gap 10 (5-15); Carbon Dioxide 25 mmol/L (20-31); Chloride 104 mmol/L (98-107); Potassium 3.9 mmol/L (3.5-5.1); Sodium 139 mmol/L (136-145)
[2025-01-07 06:37] LABS: Calcium 8.9 mg/dL (8.7-10.4)
[2025-01-07 06:42] LABS: BUN/Creatinine Ratio 23.4 (10.0-20.0); Blood Urea Nitrogen 22 mg/dL (9-23)
[2025-01-07 06:43] LABS: Glucose 66 mg/dL (74-106)
[2025-01-07] MEDS ORDERED: FUROSEMIDE 40 MG/4 ML VIAL IV ONE (07:00)
[2025-01-07] MEDS: cefTRIAXone 1GM/50ML D5W 50 ML IV SCH (08:49)
[2025-01-07] MEDS: ASPirin-EC 81 mg tab PO SCH (08:50)
[2025-01-07] MEDS ORDERED: FUROSEMIDE 40 MG/4 ML VIAL ONE (11:29)
--- NOTE | 2025-01-07 13:53 | DVH ---
Procedure: NM NM MAG3 RENAL SCAN Exam Date: 01/07/2025 11:08 AM. Clinical History: severe left hydronephrosis Comparison Study: None Nuclear Medicine Renal Scan with Lasix. Technique: Following the intravenous administration of 9.8 mCi of technetium 99m labeled MAG-3 , flow images were acquired in one second intervals. This was followed by functional imaging of the kidne ys in the posterior projection which were obtained at 20 seconds intervals reconstructed into 2 peter te frames for a total of 34 minutes. 40 mg of Lasix were given IV at the 10 minute maxime. Flow curv es and functional renogram curves were generated. Split function data were generated from the first three minutes of the study. Findings: The flow study reveals prompt visualization of both kidneys with normal flow bilaterally. The kidneys are normal size, location and contour. The functional data was obtained with the renal pelvis included in the region of interest: Left: Peak time on the left is 28 minutes. Peak to 1/2 peak on the left is 33 minutes. Diuretic T 1/2 on the left is 33 minutes. Right: Peak time on the right is 10 minutes. Peak to 1/2 peak on the right is 15 minutes. Diuretic T 1/2 on the right is 9.5 minutes. Split function is 40.25 % on the left and 59.75 % on the right. IMPRESSION: Left renal obstruction which is not responsive to Lasix administration. Right kidney is unremarkable.
[2025-01-07] MEDS: TAMSULOSIN HYDROCHLORIDE 0.4 MG CAP PO SCH (17:17)
[2025-01-07] MEDS: TEMAZEPAM 15 MG CAP PO SCH (19:56)
--- NOTE | 2025-01-07 20:15 | DVHPNRES ---
Progress Note Date Seen: Jan 07, 2025 Resident Creating Document: YUDELKA FAIRBANKS RESIDENT Medical Necessity Reason Pt with a Central, PICC or Fol: No Subjective Review of Systems 69-year-old male presents for the evaluation of flank pain. Patient went to his primary care physician a few days back and was stool that he needed to visit a urologist. He met Dr. Pierre on Saturday who told him he had an increased size of prostate and kidney stone. Patient now presents with right-sided flank pain and intermittent urinary retention. Dr. Blum advised him to present for admission for possible nephrostomy tube placement. Patient denies any fever, chills, nausea, vomiting, blood in the urine or increased frequency at this time. PMH: Diabetes mellitus, CVA, hypertension, kidney stones PSH: Denies Family history: Reviewed and noncontributory to the management of this case Social history: Patient denies smoking, he quit 25 years ago, he drinks alcohol occasionally and does not take any illicit drugs. He lives with his family. Allergies: None Home medication: Aspirin 81 mg, temazepam 50 mg, hydrochlorothiazide 25 mg, Lipitor 80 mg, metformin 500 mg, lisinopril 20 mg ROS: 01/06/2025: Patient was seen and examined by me at the bedside. Overnight events were reviewed. Patient reports that he has slight pain in the right flank still. No active complaints. CT abdomen and pelvis shows: there is a 12 mm calculus in the proximal third of the left ureter causing severe hydroureteronephrosis. There is renal cortical thinning on the left consistent with a chronically obstructed collecting system; Numerous additional calculi within both kidneys measuring up to 4 mm. He suggested Left PNT placement for pain and obstructive uropathy, Mag 3 Renal Scan with split renal function and lasix washout. If left renal function is nil, then nephrectomy may be needed, however, given his symptoms, nephrostomy tube placement is still indicated. Patient underwent the procedure, notes pending. patient was seen by me the bedside. Overnight events were reviewed. Patient reports that he has no discomfort in the nephrostomy site. He passed 1 bowel movement and has Peed 4 times with no burning or blood in the urine. Objective vital signs Vital Sign Date Time Temp Pulse Resp B/P (MAP) Pulse Ox O2 Delivery O2 Flow Rate FiO2 01/07/25 16:34 97.2 86 16 114/73 (87) 96 97.2 01/07/25 08:00 Room Air* 0 21 Total Intake and Output 01/06/25 01/06/25 01/07/25 15:00 23:00 07:00 Intake Total 240 ml 300 ml Output Total 100 ml 750 ml Balance 140 ml -450 ml medications Current Medications Medications Dose Ordered Sig/Josep Route Start Time Stop Time Status Last Admin Dose Admin Lisinopril 10 mg DAILY PO 01/06/25 10:00 01/07/25 08:50 10 MG Acetaminophen/ Hydrocodone Bitart 1 tab Q4HP PRN PO 01/05/25 23:00 Ondansetron HCl 4 mg Q4HP PRN IV 01/05/25 23:00 Acetaminophen 650 mg Q6HP PRN PO 01/05/25 23:00 Diagnostic Test (Pha) 1 strip ACHS 01/06/25 22:00 01/07/25 20:03 1 STRIP Insulin Human Regular ACHS SC 01/06/25 22:00 01/07/25 20:03 2 UNITS Dextrose 50 ml UD PRN IV 01/06/25 18:15 Tamsulosin HCl 0.4 mg QPM PO 01/07/25 18:00 01/07/25 17:17 0.4 MG Ceftriaxone Sodium 50 ml @ 100 mls/hr DAILY@09 IV 01/07/25 09:00 01/07/25 08:49 100 MLS/HR Morphine Sulfate 1 mg Q4HP PRN IV 01/06/25 20:00 Aspirin 81 mg DAILY PO 01/07/25 10:00 01/07/25 08:50 81 MG Temazepam 15 mg HS PO 01/07/25 22:00 01/07/25 19:56 15 MG Examination Pt is lying on bed General Appearance: Alert, Oriented X3, Cooperative, Not in acute distress HEENT: Atraumatic, Mucous membranes moist/pink Respiratory: Clear to auscultation, Normal air movement, No added sounds Cardiovascular: Regular rate, Normal S1, Normal S2, No murmurs Abdominal: Active bowel sounds, Soft, no distention, tenderness suprapubic region, right flank Extremities: No edema, Normal pulses, No tenderness/swelling, presence of linear scar [id number], unsteady gait and requires wheelchair sometimes to ambulate Skin: No Significant rash, Presence of nephrostomy tube on the left flank with minimal drainage, slightly bloody Neuro: Normal speech, sensorimotor deficits none Psych/Mental Status: Mental status NL, Mood NL Nurse was there as national park tour guide during examination laboratory and microbiology Laboratory Tests 01/07/25 04:36 Test 01/07/25 04:36 Range/Units Serum Glucose 66 L 74-106 mg/dL Labs and/or images reviewed: Labs reviewed by me, Image(s) reviewed by me Problem List/Assessment/Plan Problem List/Assessment/Plan # flank pain due to left ureteral stone with severe hydronephrosis #Left renal atrophy, chronic #BPH #bilateral renal stones, nonobstructing -pain management with [place] 5/325 mg q.4 PRN -NPO -CT abdomen showed: There is a 12 mm calculus in the proximal third of the left ureter causing severe hydroureteronephrosis. There is renal cortical thinning on the left consistent with a chronically obstructed collecting system; Numerous additional calculi within both kidneys measuring up to 4 mm. -urology consult suggested: Left PNT placement for pain and obstructive uropathy, Mag 3 Renal Scan with split renal function and lasix washout. If left renal function is nil, then nephrectomy may be needed, however, given his symptoms, nephrostomy tube placement is still indicated -01/06: status post placement of 8.5 ge[place]ian left percutaneous nephrostomy catheter. -ceftriaxone 1g iv daily -Renal scan done today which showed :Left renal obstruction which is not responsive to Lasix administration. Right kidney is unremarkable. #Diabetes mellitus type 2 -HbA1c, 5.3 -mild sliding scale insulin #History of CVA -Patient to continue aspirin 81 mg, Lipitor 80 mg #hypertension -hydrochlorothiazide and lisinopril on hold as bp is controlled GI prophylaxis: protonix 40mg po daily DVT prophylaxis: scd Diet: renal Goals of care discussed with the patient for more than 27 minutes: Full code status Case discussed with , patient and nurse. Plan discussed with: Patient, Other (rn) My Orders My Orders Orders - YUDELKA FAIRBANKS Procedure Category Date Status Time Melatonin (Melatonin) PHA 01/07/25 In Process 22:00 Date of Service: Jan 07, 2025 Billing Provider: ELVIE COUGHLIN MD Common Visit Codes: [id number] INP/OBS CARE(HIGH) YUDELKA FAIRBANKS Jan 07, 2025 20:15 ELVIE COUGHLIN MD Jan 07, 2025 22:27
[2025-01-07] MEDS: MELATONIN 5 MG TAB PO ONE (22:10)
[2025-01-08] VITALS (10 sets, daily range): BP systolic 99–127; BP diastolic 69–78; PULSE 65–94; RESP 16–18; TEMP 35.8; O2SAT 95–97
[2025-01-08 08:04] LABS: Hematocrit 43.5 % (41.0-53.0); Hemoglobin 15.3 g/dL (13.5-17.5); Mean Corpuscular Hemoglobin 32.1 pg (28.0-32.0); Mean Corpuscular Volume 91.4 fL (80.0-100.0); Nucleated Red Blood Cells % 0.0 %
[2025-01-08 08:14] LABS: Anion Gap 10 (5-15); Carbon Dioxide 28 mmol/L (20-31); Chloride 101 mmol/L (98-107); Potassium 4.2 mmol/L (3.5-5.1); Sodium 139 mmol/L (136-145)
[2025-01-08 08:15] LABS: Calcium 9.9 mg/dL (8.7-10.4)
[2025-01-08 08:19] LABS: Glucose 103 mg/dL (74-106)
[2025-01-08 08:20] LABS: BUN/Creatinine Ratio 19.2 (10.0-20.0)
[2025-01-08 08:21] LABS: Blood Urea Nitrogen 25 mg/dL (9-23)
[2025-01-08] MEDS ORDERED: TAMS-35 PO (09:15)
[2025-01-08] MEDS ORDERED: CEPH250C PO (11:13)
--- NOTE | 2025-01-08 13:57 | DVHDSRES ---
Discharge Summary Date of Admission Resident Creating Document: YUDELKA FAIRBANKS RESIDENT Jan 05, 2025 at 19:45 Date of Discharge: Jan 08, 2025 Admitting Diagnosis # flank pain Labs/Diagnostic Data: Laboratory Results Test 01/08/25 07:26 01/08/25 06:19 01/06/25 22:19 01/06/25 18:09 White Blood Count 7.9 10^3/uL (4.4-10.8) Red Blood Count 4.76 10^6/uL (4.5-5.90) Hemoglobin 15.3 g/dL (13.5-17.5) Hematocrit 43.5 % (41.0-53.0) Mean Corpuscular Volume 91.4 fL (80.0-100.0) Mean Corpuscular Hemoglobin 32.1 pg (28.0-32.0) Mean Corpuscular Hemoglobin Concent 35.1 g/dL (32.0-36.0) Red Cell Distribution Width 13.1 % (11.8-14.3) Platelet Count 278 10^3/uL (140-450) Mean Platelet Volume 8.2 fL (6.9-10.8) Neutrophils (%) (Auto) 70.4 % (37.0-80.0) Lymphocytes (%) (Auto) 19.7 % (10.0-50.0) Monocytes (%) (Auto) 9.0 % (0.0-12.0) Eosinophils (%) (Auto) 0.5 % (0.0-7.0) Basophils (%) (Auto) 0.4 % (0.0-2.0) Neutrophils # (Auto) 5.5 10 ^3/uL (1.6-8.6) Lymphocytes # (Auto) 1.5 10 ^3/uL (0.4-5.4) Monocytes # (Auto) 0.7 10 ^3/uL (0-1.3) Eosinophils # (Auto) 0 10 ^3/uL (0-0.8) Basophils # (Auto) 0 10 ^3/uL (0-0.2) Nucleated Red Blood Cells 0.0 % Sodium Level 139 mmol/L (136-145) Potassium Level 4.2 mmol/L (3.5-5.1) Chloride Level 101 mmol/L (98-107) Carbon Dioxide Level 28 mmol/L (20-31) Anion Gap 10 (5-15) Blood Urea Nitrogen 25 mg/dL (9-23) Creatinine 1.30 mg/dL (0.700-1.30) Glomerular Filtration Rate Calc 59 mL/min (>90) BUN/Creatinine Ratio 19.2 (10.0-20.0) Serum Glucose 103 mg/dL (74-106) Calcium Level 9.9 mg/dL (8.7-10.4) POC Glucose 117 mg/dl (70-106) Thyroid Stimulating Hormone (TSH) 1.53 uIU/mL (0.55-4.78) Total Bilirubin 0.6 mg/dL (0.2-1.0) Direct Bilirubin 0.2 mg/dL (<0.3) Aspartate Amino Transferase (AST) 16 U/L (13-40) Alanine Aminotransferase (ALT) 20 U/L (7-40) Alkaline Phosphatase 63 U/L (46-116) Total Protein 7.2 g/dL (5.7-8.2) Albumin 4.7 g/dL (3.2-4.8) Test 01/06/25 11:59 01/06/25 09:00 01/06/25 04:30 01/05/25 16:05 Prothrombin Time 11.4 sec (9.3-11.8) Prothrombin Time INR 1.08 (0.9-1.15) Activated Partial Thromboplast Time 28.3 SEC (24.5-34.5) Hemoglobin A1c 5.3 % A1C (<5.7) Triglycerides Level 86 mg/dL (< 150) Cholesterol Level 130 mg/dL (< 200) LDL Cholesterol 74 mg/dL (< 100) HDL Cholesterol 41 mg/dL (40-59) Urine Color Light-yellow (Yellow) Urine Clarity Clear (Clear) Urine pH 6.0 (5.0-9.0) Urine Specific [place] 1.018 (1.001-1.035) Urine Protein Negative (Negative) Urine Ketones Negative (Negative) Urine Blood Trace /uL (Negative) Urine Nitrite Negative (Negative) Urine Bilirubin Negative (Negative) Urine Urobilinogen Normal mg/dL (Negative) Urine Leukocyte Esterase Negative /uL (Negative) Urine RBC 9 /hpf (0 - 3) Urine Microscopic WBC 7 /HPF (0-3) Urine Squamous Epithelial Cells Few /hpf (<5) Urine Bacteria None seen /hpf (None Seen) Urine Mucus Few (None Seen) Urine Glucose Normal mg/dL (Normal) Other Laboratory Tests 01/08/25 07:26 Brief Hx & Hospital Course: 69-year-old male presents for the evaluation of flank pain. Patient went to his primary care physician a few days back and was stool that he needed to visit a urologist. He met Dr. Pierre on Saturday who told him he had an increased size of prostate and kidney stone. Patient now presents with right-sided flank pain and intermittent urinary retention. Dr. Blum advised him to present for admission for possible nephrostomy tube placement. Patient denies any fever, chills, nausea, vomiting, blood in the urine or increased frequency at this time. PMH: Diabetes mellitus, CVA, hypertension, kidney stones PSH: Denies Family history: Reviewed and noncontributory to the management of this case Social history: Patient denies smoking, he quit 25 years ago, he drinks alcohol occasionally and does not take any illicit drugs. He lives with his family. Allergies: None Home medication: Aspirin 81 mg, temazepam 50 mg, hydrochlorothiazide 25 mg, Lipitor 80 mg, metformin 500 mg, lisinopril 20 mg Brief history of hospitalization: patient came with flank pain due to left ureteral stone with hydronephrosis. He has chronic renal atrophy, BPH and bilateral renal stones that are nonobstructing seen n CT abdomen. The stone was 12 mm in the proximal 3rd of the left ureter causing hydroureteronephrosis. There is renal cortical thinning on the left consistent with chronically obstructed collecting system nevus additional calculi with both kidneys measuring up to 4 mm. We kept the patient NPO and given pain management with [place] 5/325 mg to 4 PRN. Urology consult was done and on 01/06 8.5 [place] left percutaneous nephrostomy catheter was placed. We gave the patient ceftriaxone 1 g IV daily. Urology suggested a renal scan post catheter placement and the renal scan showed left renal obstruction which was not responsive to Lasix administration. Right kidney is unremarkable. Patient has been cleared from Neurology stand point and has been suggested to do twice weekly dressing changes for nephrostomy and to follow up in 2 weeks outpatient. During hospitalization patient's diabetes mellitus type 2 was controlled by mild sliding scale insulin and his history of CVA we continued with aspirin 81 mg, Lipitor 80 mg. The patient is hypertensive, hydrochlorothiazide and lisinopril were on hold SBP was controlled in the hospital without them. now stable discharge and we have asked him to resume all his home medications as well as tamsulosin 0.4 mg per orally daily As well as cephalexin 500 mg BD for 6 days. He has agreed to the discharge plan. We have also counseled him regarding the nephrostomy dressing to be done twice a week and to follow up in 2 weeks with [facility]. He has communicated understanding and agreed to the discharge plan. Pt is lying on bed General Appearance: Alert, Oriented X3, Cooperative, Not in acute distress HEENT: Atraumatic, Mucous membranes moist/pink Respiratory: Clear to auscultation, Normal air movement, No added sounds Cardiovascular: Regular rate, Normal S1, Normal S2, No murmurs Abdominal: Active bowel sounds, Soft, no distention, tenderness suprapubic region, right flank Extremities: No edema, Normal pulses, No tenderness/swelling, presence of linear scar [id number], unsteady gait and requires wheelchair sometimes to ambulate Skin: No Significant rash, Presence of nephrostomy tube on the left flank with minimal drainage, slightly bloody Bandage placed over the incision site Neuro: Normal speech, sensorimotor deficits none Psych/Mental Status: Mental status NL, Mood NL Nurse was there as supervisor sunglasses during examination Operations or Procedures COMPUTERIZED TOMOGRAPHY ABDOMEN AND PELVIS WITHOUT CONTRAST REASON FOR EXAM: flank pain IMPRESSION: There is a 12 mm calculus in the proximal third of the left ureter causing severe hydroureteronephrosis. There is renal cortical thinning on the left consistent with a chronically obstructed collecting system. Numerous additional calculi within both kidneys measuring up to 4 mm. XY CHEST PORTABLE, IMPRESSION: No acute intrathoracic abnormality. XY PERCUTANEOUS NEPHROSTOMY, HISTORY: Severe left Hydronephrosis from a ureteral kidney stone. IMPRESSION: Severe left hydronephrosis , status post placement of 8.5 maldivian left percutaneous nephrostomy catheter. PLAN: Routine catheter care. XY PERCUTANEOUS NEPHROSTOMY, HISTORY: Severe left Hydronephrosis from a ureteral kidney stone. IMPRESSION: Severe left hydronephrosis , status post placement of 8.5 maldivian left percutaneous nephrostomy catheter. PLAN: Routine catheter care. Procedure: NM NM MAG3 RENAL SCAN Exam Date: 01/07/2025 11:08 AM. Clinical History: severe left hydronephrosis Comparison Study: None Nuclear Medicine Renal Scan with Lasix. Technique: Following the intravenous administration of 9.8 mCi of technetium 99m labeled MAG-3 , flow images were acquired in one second intervals. This was followed by functional imaging of the kidneys in the posterior projection which were obtained at 20 seconds intervals reconstructed into 2 minute frames for a total of 34 minutes. 40 mg of Lasix were given IV at the 10 minute maxime. Flow curves and functional renogram curves were generated. Split function data were generated from the first three minutes of the study. Findings: The flow study reveals prompt visualization of both kidneys with normal flow bilaterally. The kidneys are normal size, location and contour. The functional data was obtained with the renal pelvis included in the region of interest: Left: Peak time on the left is 28 minutes. Peak to 1/2 peak on the left is 33 minutes. Diuretic T 1/2 on the left is 33 minutes. Right: Peak time on the right is 10 minutes. Peak to 1/2 peak on the right is 15 minutes. Diuretic T 1/2 on the right is 9.5 minutes. Split function is 40.25 % on the left and 59.75 % on the right. IMPRESSION: Left renal obstruction which is not responsive to Lasix administration. Right kidney is unremarkable. Condition at Discharge: Stable Final Diagnosis/Problems List # flank pain due to left ureteral stone with severe hydronephrosis #Left renal atrophy, chronic #BPH #bilateral renal stones, nonobstructing #Diabetes mellitus type 2 #History of CVA #hypertension Discharge Disposition: Home with Health Services Discharge Instruct/Medications Diet: Consistent carbohydrate, Cardiac 2g Na,low cholest Diet comment: Drink plenty of fluids, avoid red meat, low-salt diet, avoid food rich in oxalate including spinach, beetroot, nuts, chocolate Activity: No Restrictions, As Tolerated Follow Up/Referral: Follow up with PCP in 10 days Follow up with Nephrology outpatient in 2 weeks Follow up in discharge clinic within 7 days Follow up with home health for dressing changes twice a week for 2 weeks Medications: continue tamsulosin 0.4 mg per orally in the afternoon daily tab cephalexin 500 twice for 6 days Resume home meds Scheduled Aspirin (Aspir-81), 1 TAB PO DAILY, (Reported) Atorvastatin Calcium (Lipitor), 1 TAB PO DAILY, (Reported) Cephalexin (Keflex Capsule), 500 MG PO BID Cholecalciferol (Vitamin D3), 1 TAB PO DAILY, (Reported) Hydrochlorothiazide (Hydrochlorothiazide), 1 TAB PO DAILY, (Reported) Lisinopril (Lisinopril), 1 TAB PO DAILY, (Reported) Metformin Hydrochloride (Metformin Hcl), 1 TAB PO BID, (Reported) Tamsulosin Hcl (Flomax), 0.4 MG PO QPM Temazepam (Restoril), 1 CAP PO QPM, (Reported) Discharge Statement: "Patient was advised to return to the ER or call 911 if any headaches, dizziness, shortness of breath, chest pain, abdominal pain, bleeding, fevers, or worsening of medical condition. Patient was counseled about treatment plan, medications, possible side effects, patientverbalized understanding. All questions were answered to the best of my ability. This discharge took greater then 30 minutes in planning, reviewing documentation, counseling the patient, and discussing with other team members." ASSESSMENT ASSESSMENT Assessment Flank pain due to left ureteral stone with severe hydronephrosis Renal atrophy, chronic Date of Service: Jan 08, 2025 Billing Provider: ELVIE COUGHLIN MD Common Visit Codes: 63391-[id number] DISCH DAY >30min YUDELKA FAIRBANKS RESIDENT Jan 08, 2025 13:57 ELVIE COUGHLIN MD Jan 08, 2025 23:41
== END 2025-01-08 21:42 | disposition home health service (06) | DRG 465 ==
LOC: ER 15:53 → OVERFLOW 19:45 → WEST WING 01-06 04:45
PROVIDERS: ADMIT Internal Medicine; ATTEND Radiology Diagnostic Radiology
PROC: 0T9130Z Drainage of Left Kidney with Drainage Device, Percutaneous Approach (ICD-10-PCS; principal; 2025-01-06)
DX: N13.2 Hydronephrosis with renal and ureteral calculous obstruction (principal); I69.351 Hemiplegia and hemiparesis following cerebral infarction affecting right dominant side; E11.8 Type 2 diabetes mellitus with unspecified complications; N40.0 Benign prostatic hyperplasia without lower urinary tract symptoms; I10 Essential (primary) hypertension; N26.1 Atrophy of kidney (terminal); Z79.82 Long term (current) use of aspirin
CPT/HCPCS: 36415; 71045; 74176; 74425; 76942; 78707; 80048; 80061; 80076; 81001; 82962; 83036; 84443; 85025; 85610; 85730; 86850; 86900; 86901; 99152; G0378; J1815; J2250

== ENCOUNTER 2025-03-08 09:39 | Inpatient (IN) | payer MEDICAID ==
[~2025-03-08] VITALS: Ht 160 cm; Wt 58.6 kg
[~2025-03-08 09:39] MED LIST: ASPI1TAB20 PO; ATOR80TA PO; CEPH250C PO; CHOL20007 PO; HYDR25TA4 PO; LISI20TA56 PO; METF-370 PO; TAMS-35 PO; TEMA15CA2 PO
--- NOTE | 2025-03-08 10:14 | ED.PDOC ---
General HPI Comments 69 year old male PMHx CVA-x3, DM, HTN, HLD presents to the ED with a chief complaint of LT flank pain onset 8 days. Patient states he had LT nephrostomy tube placed about 3 months ago due to kidney stones, wound care nurse has advised patient for the past week to go to ED for possible infection. Patient has been experiencing LT flank pain, pain around nephrostomy tube as well as chills. Patient states he was scheduled for lithotripsy, was not able to be done due to cardiac workup, patient is unsure as to why, has an appointment with cma or lpn in 2 weeks. Denies fever, nausea, vomiting, diarrhea, dysuria, hematuria, dizziness, headache, chest pain,shortness of breath. No other symptoms or modifying factors present at this time. Chief Complaint: Flank Pain Time Seen by MD: 10:00 Reviewed notes: Nurses Notes, Medications, Allergies Allergies: Coded Allergies: NO KNOWN ALLERGIES (Unverified , 01/05/25) Home Meds Active Scripts Cephalexin (KEFLEX CAPSULE) 250 Mg Cp, 500 MG PO BID for 5 Days, #20 CAP 0 Refills Prov:NATALY ROBERSON RESIDENT 01/08/25 Tamsulosin Hcl (Flomax) 0.4 Mg Cap, 0.4 MG PO QPM for 30 Days, #30 CAP Prov:NATALY ROBERSON RESIDENT 01/08/25 Reported Medications Aspirin (Aspir-81) 81 Mg Tab, 1 TAB PO DAILY, #30 TAB 5 Refills 01/05/25 Cholecalciferol (VITAMIN D3) 2,000 Unit Tab, 1 TAB PO DAILY, #30 TAB 5 Refills 01/05/25 Temazepam (Restoril) 15 Mg Cp, 1 CAP PO QPM, #30 CAP 1 Refill 01/05/25 Metformin Hydrochloride (Metformin Hcl) 500 Mg Tab, 1 TAB PO BID, #60 TAB 3 Refills 01/05/25 Lisinopril (Lisinopril) 20 Mg Tab, 1 TAB PO DAILY, #30 TAB 5 Refills 01/05/25 Hydrochlorothiazide (Hydrochlorothiazide) 25 Mg Tab, 1 TAB PO DAILY, #30 TAB 5 Refills 01/05/25 Atorvastatin Calcium (Lipitor) 80 Mg Tab, 1 TAB PO DAILY, #30 TAB 5 Refills 01/05/25 Information Source: Patient Mode of Arrival: Wheelchair Severity: Moderate Timing: Days Duration: Since onset Prehospital treatment: None Onset: Spontaneous Symptoms: Other History of: Kidney stone Location: (L)Flank Penile discharge: None Modifying factors: None associated signs and symptoms: Flank Pain Past Medical History PAST MEDICAL HISTORY: CVA (x3), DM, High Lipids, HTN, Kidney Stones Surgical History (Other): Nephrostomy to the left flank Family History Family History: Unknown Social History Smoker: Non-Smoker, Quit Greater Than 1 Year Alcohol: Occasionally Drugs: Denies Drug Use Lives In: Home Constitutional: denies: chills, diaphoresis, fatigue, fever, malaise, sweats, weakness, others EENTM: denies: blurred vision, double vision, ear bleeding, ear discharge, ear drainage, ear pain, ear ringing, eye pain, eye redness, hearing loss, mouth pain, mouth swelling, nasal discharge, nose bleeding, nose congestion, nose pain, photophobia, tearing, throat pain, throat swelling, voice changes, others Respiratory: denies: cough, hemoptysis, orthopnea, SOB at rest, shortness of breath, SOB with excertion, stridor, wheezing, others Cardiovascular: denies: chest pain, dizzy spells, diaphoresis, Dyspnea on exertion, edema, irregular heart beat, left arm pain, lightheadedness, palpitations, PND, syncope, others Gastrointestinal: denies: abdomen distended, abdominal pain, blood streaked bowels, constipated, diarrhea, dysphagia, difficulty swallowing, hematemesis, melena, nausea, poor appetite, poor fluid intake, rectal bleeding, rectal pain, vomiting, others Genitourinary: reports: flank pain; denies: burning, dysuria, frequency, hematuria, incontinence, penile discharge, penile sore, pain, testicle pain, testicle swelling, urgency, others Neurological: denies: dizziness, fainting, headache, left sided numbness, left sided weakness, numbness, paresthesia, pre-existing deficit, right sided numbness, right sided weakness, seizure, speech problems, tingling, tremors, weakness, others Musculoskeletal: denies: back pain, gout, joint pain, joint swelling, muscle pain, muscle stiffness, neck pain, others Integumetry: denies: bruises, change in color, change in hair/nails, dryness, laceration, lesions, lumps, rash, wounds, others Allergic/Immunocompromised: denies: Difficulty Healing, Frequent Infections, Hives, Itching, others Hematologic/Lymphatic: denies: anemia, blood clots, easy bleeding, easy bruising, swollen glands, others Endocrine: denies: excessive hunger, excessive sweating, excessive thirst, excessive urination, flushing, intolerance to cold, intolerance to heat, unexplained weight gain, unexplained weight loss, others Psychiatric: denies: anxiety, bipolar disorder, depression, hopeless, panic disorder, schizophrenia, sleepless, suicidal, others All Other Systems: Reviewed and Negative Physical Exam General Appearance: Moderate Distress HEENT: Normal ENT Inspection, Pharynx Normal, TMs Normal Neck: Full Range of Motion, Non-Tender, Normal, Normal Inspection Respiratory: Chest Non-Tender, Lungs Clear, No Accessory Muscle Use, No Respiratory Distress, Normal Breath Sounds Cardiovascular: No Edema, No JVD, No Murmur, No Gallop, Normal Peripheral Pulses, Regular Rate/Rhythm Breast Exam: Deferred Gastrointestinal: No Organomegaly, Non Tender, No Pulsatile Mass, Normal Bowel Sounds, Soft Genitalia: Deferred Pelvic: Deferred Rectal: Deferred Extremities: No calf tenderness, Normal capillary refill, No pedal edema Musculoskeletal : Location: Left Extremity Location: Back Apperance: Limited ROM, Tenderness: Moderate, Other (Nephrostomy to the left flank) Neurologic: Alert, skills instructor II-XII nml as Tested, No Motor Deficits, Normal Affect, Normal Mood, No Sensory Deficits Cerebellar Function: Normal Reflexes: Normal Skin: Dry, Normal Color, Warm Lymphatic: No Adenopathy Was a procedure done? Was a procedure done?: No Differential Diagnosis Kidney stone (Female): Musculoskeletal pain, Renal failure, Strain, Urolithiasis X-Ray, Labs, Meds, VS Vital Signs Date Time Temp Pulse Resp B/P (MAP) Pulse Ox O2 Delivery O2 Flow Rate FiO2 03/08/25 09:41 97.6 83 16 128/95 97 97.6 Lab Test 03/08/25 11:20 Range/Units White Blood Count 6.1 4.4-10.8 10^3/uL Red Blood Count 3.99 L 4.5-5.90 10^6/uL Hemoglobin 12.3 L 13.5-17.5 g/dL Hematocrit 36.0 L 41.0-53.0 % Mean Corpuscular Volume 90.3 80.0-100.0 fL Mean Corpuscular Hemoglobin 30.9 28.0-32.0 pg Mean Corpuscular Hemoglobin Concent 34.2 32.0-36.0 g/dL Red Cell Distribution Width 13.3 11.8-14.3 % Platelet Count 283 140-450 10^3/uL Mean Platelet Volume 7.5 6.9-10.8 fL Neutrophils (%) (Auto) 58.7 37.0-80.0 % Lymphocytes (%) (Auto) 30.1 10.0-50.0 % Monocytes (%) (Auto) 8.5 0.0-12.0 % Eosinophils (%) (Auto) 2.0 0.0-7.0 % Basophils (%) (Auto) 0.7 0.0-2.0 % Neutrophils # (Auto) 3.6 1.6-8.6 10 ^3/uL Lymphocytes # (Auto) 1.8 0.4-5.4 10 ^3/uL Monocytes # (Auto) 0.5 0-1.3 10 ^3/uL Eosinophils # (Auto) 0.1 0-0.8 10 ^3/uL Basophils # (Auto) 0 0-0.2 10 ^3/uL Nucleated Red Blood Cells 0.0 % Sodium Level 140 136-145 mmol/L Potassium Level 3.8 3.5-5.1 mmol/L Chloride Level 104 98-107 mmol/L Carbon Dioxide Level 26 20-31 mmol/L Anion Gap 10 5-15 Blood Urea Nitrogen 19 9-23 mg/dL Creatinine 1.10 0.700-1.30 mg/dL Glomerular Filtration Rate Calc 73 >90 mL/min BUN/Creatinine Ratio 17.3 10.0-20.0 Serum Glucose 102 74-106 mg/dL Lactic Acid Level 1.2 0.4-2.0 mmol/L Calcium Level 8.7 8.7-10.4 mg/dL PROCEDURE(s): ABPL - CT AB PEL WO CON-NO ORAL OR IV IMPRESSION: 1. Examination is limited due to motion artifact and beam hardening artifact. 2. Moderate to marked right hydronephrosis and proximal hydroureter with obstructing 6 mm calculus in the mid to distal right ureter. 3. Left nephrostomy tube in place. Obstructing calculus in the proximal to mid left ureter, minimally changed in location compared to the prior CT. No significant left hydronephrosis on today's exam. 4. Small nonobstructing right renal calculi. 5. Enlarged prostate. 6. Mild circumferential thickening of the bladder wall, may be due to a degree of bladder outlet obstruction from the enlarged prostate. Correlate clinically to exclude cystitis. 7. Additional findings as described above. The patient's lactic acid level is negative The patient's CBC is within normal limits The urine test is pending The patient is being admitted at this time Images Reviewed?: Images reviewed and evaluated by me Time of 1ST Reevaluation: 10:30 Reevaluation 1ST: Unchanged Patient Education/Counseling: Diagnosis, Treatment, Prognosis Family Education/Counseling: No Family Present SEPSIS Sepsis Screen Date sepsis recognized/suspect: Mar 08, 2025 Time Sepsis recognized/suspect: 940 Recent Procedure: No On Antibiotic Therapy: No Respiratory Rate >20: No Heart Rate >90: No Temp<36 C (96.8 F) or >38.3 C: No SBP <90 or MAP <65 mmHG: No New Acute Mental Status Change: No Is the patient on CPAP, BIPAP,: No Physician Orders Urinalysis (03/08/25 10:09) Ct Ab Pel Wo Con-No Oral Or Iv (03/08/25 10:09) Blood Culture (03/08/25 10:09) Aspirin Tablet (03/09/25 10:00) Atorvastatin (Lipitor) (03/08/25 22:00) Lisinopril Tablet (Zestril Tablet) (03/09/25 10:00) Glucose Blood (Accu-Chek Comfort Curve T (03/08/25 17:00) Insulin R (Human) (Insulin R) (03/08/25 17:00) Dextrose 50% Syringe (03/08/25 13:00) Allergies (03/08/25 12:59) Code Status (03/08/25 12:59) Sodium Chloride Lock (Saline Lock Ns) (03/08/25 14:00) Oxygen Per Hour (03/08/25 12:59) Hydrocodone-Acet 5/325mg Tab ([place] 5/32 (03/08/25 13:00) Ondansetron Hcl (Zofran) (03/08/25 13:00) Docusate Sodium Capsule (Colace Capsule) (03/08/25 13:00) Complete Blood Count (03/09/25 04:00) Comprehensive Metabolic Panel (03/09/25 04:00) Condition: Serious (03/08/25 12:59) Acetaminophen Tablet (Tylenol Tablet) (03/08/25 13:00) Bedrest With Bathroom Privileg (03/08/25 12:59) Sequential Compression Device (03/08/25 ) Vital Signs Date Time Temp Pulse Resp B/P (MAP) Pulse Ox O2 Delivery O2 Flow Rate FiO2 03/08/25 09:41 97.6 83 16 128/95 97 97.6 Laboratory Tests Test 03/08/25 11:20 Lactic Acid Level 1.2 mmol/L (0.4-2.0) White Blood Count 6.1 10^3/uL (4.4-10.8) Departure 1 Departure Time of Disposition: 15:52 Impression: Primary Impression: Hydronephrosis Qualified Codes: N13.2 - Hydronephrosis with renal and ureteral calculous obstruction Additional Impression: Bilateral flank pain Disposition: ADMITTED INPATIENT Admit to: Med Surg Condition: Fair Critical Care Note Critical Care Time?: No Stability Stability form required: Yes Unstable for transfer: ED Physician Assesment (Clinical assesment) Heart Score Heart Score: Heart Score Response (Comments) Value History N/A 0 EKG N/A 0 Age N/A 0 Risk Factors N/A 0 Troponin N/A 0 Total 0 I personally scribed for KAYLI MCCLAIN MD ([email or web address]) on 03/08/25 at 10:14. Electronically submitted by Rubina Lomeli ([email or web address]). I personally scribed for KAYLI MCCLAIN MD ([email or web address]) on 03/08/25 at 11:08. Electronically submitted by Rubina Lomeli ([email or web address]). KAYLI MCCLAIN MD Mar 08, 2025 10:14
--- NOTE | 2025-03-08 11:04 | DVH ---
CLINICAL INFORMATION: Left flank pain. TECHNIQUE: Axial CT images of the abdomen and pelvis were obtained without IV contrast. Coronal and s agittal reformatted images were obtained, reviewed, and stored. Evaluation of the parenchymal organs is limited without IV contrast. Evaluation of the bowel and mesentery is limited without oral contras t. All CT scans at this medical facility are performed using dose modulation techniques as appropriat e to a performed exam including the following: Automated exposure control was utilized; adjustment of the MA and/or KV according to patient size; and use of iterative reconstruction technique. CTDIvol = 9.59 mGy DLP = 564.71 mGy-cm COMPARISON: CT CT AB PEL WO CON-NO ORAL OR IV on DOS: 01/05/25 FINDINGS: Motion limited study. Examination is also limited due to motion artifact. Lung bases: Respiratory motion artifact limits evaluation. Atelectasis in the lung bases. Partially v isualized dense coronary artery calcification. Liver: Grossly unremarkable given the limitations of the examination. Biliary: Limited visualization of the gallbladder. No biliary ductal dilatation. Spleen: Grossly unremarkable. Pancreas: Grossly unremarkable. Adrenal glands: Grossly unremarkable. Kidneys: Moderate to marked right hydronephrosis and hydroureter with obstructing 6 mm calculus in th e mid to distal right ureter. Additional small nonobstructing right renal calculi. Left nephrostomy t ube in place. No significant left hydronephrosis. There is obstructing calculus in the proximal to mi d left ureter measuring up to 1.1 cm, also seen on the prior CT near this location. Aorta/Vascular: Moderate atherosclerotic calcification. No abdominal aortic aneurysm. Lymph nodes: No mass or lymphadenopathy. Bowel/mesentery: No small bowel obstruction. No free air or free fluid. Appendix is visualized and ap pears unremarkable. Scattered colonic diverticula without adjacent inflammatory changes to suggest d iverticulitis. Pelvic organs: Enlarged prostate with impression on the bladder base. Bladder: Mild circumferential thickening of the bladder wall. Abdominal wall: No mass or hernia. Bones: No acute fracture or suspicious intraosseous lesion. IMPRESSION: 1. Examination is limited due to motion artifact and beam hardening artifact. 2. Moderate to marked right hydronephrosis and proximal hydroureter with obstructing 6 mm calculus in the mid to distal right ureter. 3. Left nephrostomy tube in place. Obstructing calculus in the proximal to mid left ureter, minimally changed in location compared to the prior CT. No significant left hydronephrosis on today's exam. 4. Small nonobstructing right renal calculi. 5. Enlarged prostate. 6. Mild circumferential thickening of the bladder wall, may be due to a degree of bladder outlet obst ruction from the enlarged prostate. Correlate clinically to exclude cystitis. 7. Additional findings as described above.
[2025-03-08 11:55] LABS: Chloride 104 mmol/L (98-107); Potassium 3.8 mmol/L (3.5-5.1); Sodium 140 mmol/L (136-145)
[2025-03-08 11:56] LABS: Anion Gap 10 (5-15); Carbon Dioxide 26 mmol/L (20-31); Hematocrit 36.0 % (41.0-53.0); Hemoglobin 12.3 g/dL (13.5-17.5); Mean Corpuscular Hemoglobin 30.9 pg (28.0-32.0); Mean Corpuscular Volume 90.3 fL (80.0-100.0); Nucleated Red Blood Cells % 0.0 %
[2025-03-08 11:57] LABS: Calcium 8.7 mg/dL (8.7-10.4)
[2025-03-08 12:01] LABS: Glucose 102 mg/dL (74-106)
[2025-03-08 12:02] LABS: BUN/Creatinine Ratio 17.3 (10.0-20.0); Blood Urea Nitrogen 19 mg/dL (9-23)
[2025-03-08] MEDS ORDERED: ACETAMINOPHEN 325 MG TAB PO PRN (13:00)
[2025-03-08] MEDS ORDERED: DEXTROSE (50%) 50ML SYRG IV PRN (13:00)
[2025-03-08] MEDS ORDERED: ONDANSETRON HCL 4 MG/2 ML VIAL IV PRN (13:00)
[2025-03-08] MEDS: SODIUM CHLOR 0.9% PF (SALINE LOCK) 10ML VIAL/SYR IV SCH (14:00)
[2025-03-08] MEDS ORDERED: MORPHINE SULFATE INJ 2 MG/ml SYRG IV PRN (14:15)
[2025-03-08] MEDS ORDERED: NITROGLYCERIN 0.4 MG SL TAB SL PRN (14:15)
--- NOTE | 2025-03-08 14:16 | DVHHP2 ---
History of Present Illness Reason for Visit: Left flank pain History of Present Illness The patient is a 69-year-old male with multiple past medical history including CVA, diabetes mellitus, and hypertension who presented to [facility] ED with complaint of left flank pain for the past 8 days. Patient reports he had left nephrostomy tube placed about 3 months ago due to kidney stones. Patient has been experiencing left flank pain around nephrostomy tube as well as chills. He was advised by wound care nurse to go to the ER for possible infection. Patient states he was scheduled for lithotripsy, but was unable to be done due to cardiac workup, patient is unsure as to why, has an appointment with educational administration teacher in 2 weeks. Patient was seen and evaluated in the ED, laboratory data shows WBC 6.1, platelets 283, sodium 140, potassium 3.8, BUN 19, creatinine 1.10, glucose 102, calcium 8.7, blood pressure 128/95, heart rate 82, temperature 97.6 F, O2 saturation 97% on room air. Abdomen/pelvis CT revealing moderate to marked right hydronephrosis and proximal hydroureter with ob structing 6 mm calculus in the mid to distal right ureter; left nephrostomy tube in place, obstructing calculus in the proximal to mid left ureter, minimally change in location compared to the prior CT. Please see medication orders section in the computer. On my assessment, patient denied chest pain, no dizziness, headache, diaphoresis, shortness of breaths, no abdominal pain, diar ashleigh, nausea, vomiting, fever, chills. Patient was admitted for further evaluation and medical management. Past Medical History CVA (x3), DM, High Lipids, HTN, Kidney Stones Past Surgical History Nephrostomy to the left flank Family History Reviewed, noncontributory to the management of this case. Past Social History Patient lives at home, quit smoking greater than 1 year, drinks alcohol occasionally, denies illicit drugs abuse. Review of Systems Constitutional: Yes: Weakness; No: Fever, Chills, Sweats, Malaise, Other Eyes: No: Pain, Vision change, Conjunctivae inflammation, Eyelid inflammation, Other, Redness ENT: No: Ear pain, Ear discharge, Nose pain, Nose discharge, Nose congestion, Mouth pain, Mouth swelling, Throat pain, Throat swelling, Other Respiratory: No: Cough, Dry, Shortness of breath, SOB with excertion, Wheezing, Hemoptysis, Pleuritic Pain, Sputum, Wheezing, Other Cardiovascular: No: Chest Pain, Palpitations, Orthopnea, Paroxysmal Noc. Dyspnea, Edema, Lt Headedness, Other Gastrointestinal: No: Nausea, Vomiting, Abdominal Pain, Diarrhea, Constipation, Melena, Hematochezia, Other Genitourinary: No Dysuria, No Frequency, No Incontinence, No Hematuria, No Retention; Other (Left flank pain, left nephrostomy tube.) Musculoskeletal: No: other, neck pain, shoulder pain, arm pain, back pain, hand pain, leg pain, foot pain Skin: No: Rash, Lesions, Jaundice, Bruising, Other Neurological: No: Weakness, Numbness, Incoordination, Change in speech, Confusion, Seizures, Other Allergies: Coded Allergies: NO KNOWN ALLERGIES (Unverified , 01/05/25) Medications Current Medications Medications Dose Ordered Sig/Josep Route Start Time Stop Time Status Last Admin Dose Admin Aspirin 81 mg DAILY PO 03/09/25 10:00 UNV Atorvastatin Calcium 40 mg HS PO 03/08/25 22:00 UNV Lisinopril 20 mg DAILY PO 03/09/25 10:00 UNV Diagnostic Test (Pha) 1 strip ACHS 03/08/25 17:00 UNV Insulin Human Regular ACHS SC 03/08/25 17:00 UNV Dextrose 50 ml UD PRN IV 03/08/25 13:00 UNV Sodium Chloride 10 ml Q8HR IV 03/08/25 14:00 UNV Acetaminophen/ Hydrocodone Bitart 1 tab Q4HP PRN PO 03/08/25 13:00 UNV Ondansetron HCl 4 mg Q4HP PRN IV 03/08/25 13:00 UNV Docusate Sodium 100 mg BIDPRN PRN PO 03/08/25 13:00 UNV Acetaminophen 650 mg Q6HP PRN PO 03/08/25 13:00 UNV Exam Vital Signs Vital Signs Date Time Temp Pulse Resp B/P (MAP) Pulse Ox O2 Delivery O2 Flow Rate FiO2 03/08/25 09:41 97.6 83 16 128/95 97 97.6 General Appearance: Alert, Oriented X3, Cooperative, No acute distress HEENT: Atraumatic, PERRLA, EOMI, Mucous membr. moist/pink Respiratory: Normal air movement Cardiovascular: Regular rate, Normal S1, Normal S2, No murmurs Abdominal: Normal bowel sounds, Soft, No tenderness, No hepatospenomegaly, No masses Extremities: No clubbing, No cyanosis, No edema, Normal pulses, No tenderness/swelling Skin: No rashes, No breakdown, No significant lesion Neuro: Normal speech, Normal tone, Sensation intact, Cranial nerves 3-12 NL, Reflexes 2+, Other (Generalized weakness) Psych/Mental Status: Mental status NL, Mood NL Labs/Xrays Labs Test 03/08/25 11:20 Range/Units White Blood Count 6.1 4.4-10.8 10^3/uL Red Blood Count 3.99 L 4.5-5.90 10^6/uL Hemoglobin 12.3 L 13.5-17.5 g/dL Hematocrit 36.0 L 41.0-53.0 % Mean Corpuscular Volume 90.3 80.0-100.0 fL Mean Corpuscular Hemoglobin 30.9 28.0-32.0 pg Mean Corpuscular Hemoglobin Concent 34.2 32.0-36.0 g/dL Red Cell Distribution Width 13.3 11.8-14.3 % Platelet Count 283 140-450 10^3/uL Mean Platelet Volume 7.5 6.9-10.8 fL Neutrophils (%) (Auto) 58.7 37.0-80.0 % Lymphocytes (%) (Auto) 30.1 10.0-50.0 % Monocytes (%) (Auto) 8.5 0.0-12.0 % Eosinophils (%) (Auto) 2.0 0.0-7.0 % Basophils (%) (Auto) 0.7 0.0-2.0 % Neutrophils # (Auto) 3.6 1.6-8.6 10 ^3/uL Lymphocytes # (Auto) 1.8 0.4-5.4 10 ^3/uL Monocytes # (Auto) 0.5 0-1.3 10 ^3/uL Eosinophils # (Auto) 0.1 0-0.8 10 ^3/uL Basophils # (Auto) 0 0-0.2 10 ^3/uL Nucleated Red Blood Cells 0.0 % Sodium Level 140 136-145 mmol/L Potassium Level 3.8 3.5-5.1 mmol/L Chloride Level 104 98-107 mmol/L Carbon Dioxide Level 26 20-31 mmol/L Anion Gap 10 5-15 Blood Urea Nitrogen 19 9-23 mg/dL Creatinine 1.10 0.700-1.30 mg/dL Glomerular Filtration Rate Calc 73 >90 mL/min BUN/Creatinine Ratio 17.3 10.0-20.0 Serum Glucose 102 74-106 mg/dL Lactic Acid Level 1.2 0.4-2.0 mmol/L Calcium Level 8.7 8.7-10.4 mg/dL PATIENT: WAN ROBERTSCCT: [id number] UNIT: [id number] : 1955 LOC: ER ROOM / BED: / AGE / SEX: 69 / M ADM STATUS: REG ER SERVICE 1009 ORDERING PHYSICIAN: KALYI MCCLAIN MD PROCEDURE(s): ABPL - CT AB PEL WO CON-NO ORAL OR IV REASON: Left-sided flank pain ORDER NUMBER(s): [id number], ACCESSION NUMBER(s): [id number] CLINICAL INFORMATION: Left flank pain. TECHNIQUE: Axial CT images of the abdomen and pelvis were obtained without IV contrast. Coronal and sagittal reformatted images were obtained, reviewed, and stored. Evaluation of the parenchymal organs is limited without IV contrast. Evaluation of the bowel and mesentery is limited without oral contrast. All CT scans at this medical facility are performed using dose modulation techniques as appropriate to a performed exam including the following: Automated exposure control was utilized; adjustment of the MA and/or KV according to patient size; and use of iterative reconstruction technique. CTDIvol = 9.59 mGy DLP = 564.71 mGy-cm COMPARISON: CT CT AB PEL WO CON-NO ORAL OR IV on DOS: 01/05/25 FINDINGS: Motion limited study. Examination is also limited due to motion artifact. Lung bases: Respiratory motion artifact limits evaluation. Atelectasis in the lung bases. Partially visualized dense coronary artery calcification. Liver: Grossly unremarkable given the limitations of the examination. Biliary: Limited visualization of the gallbladder. No biliary ductal dilatation. Spleen: Grossly unremarkable. Pancreas: Grossly unremarkable. Adrenal glands: Grossly unremarkable. Kidneys: Moderate to marked right hydronephrosis and hydroureter with obstructing 6 mm calculus in the mid to distal right ureter. Additional small nonobstructing right renal calculi. Left nephrostomy tube in place. No signific ant left hydronephrosis. There is obstructing calculus in the proximal to mid left ureter measuring up to 1.1 cm, also seen on the prior CT near this location. Aorta/Vascular: Moderate atherosclerotic calcification. No abdominal aortic aneurysm. Lymph nodes: No mass or lymphadenopathy. Bowel/mesentery: No small bowel obstruction. No free air or free fluid. Appendix is visualized and appears unremarkable. Scattered colonic diverticula without adjacent inflammatory changes to suggest diverticulitis. Pelvic organs: Enlarged prostate with impression on the bladder base. Bladder: Mild circumferential thickening of the bladder wall. Abdominal wall: No mass or hernia. Bones: No acute fracture or suspicious intraosseous lesion. IMPRESSION: 1. Examination is limited due to motion artifact and beam hardening artifact. 2. Moderate to marked right hydronephrosis and proximal hydroureter with obstructing 6 mm calculus in the mid to distal right ureter. 3. Left nephrostomy tube in place. Obstructing calculus in the proximal to mid left ureter, minimally changed in location compared to the prior CT. No significant left hydronephrosis on today's exam. 4. Small nonobstructing right renal calculi. 5. Enlarged prostate. 6. Mild circumferential thickening of the bladder wall, may be due to a degree of bladder outlet obstruction from the enlarged prostate. Correlate clinically to exclude cystitis. 7. Additional findings as described above. SEPSIS Sepsis Screen Date sepsis recognized/suspect: Mar 08, 2025 Time Sepsis recognized/suspect: 940 Recent Procedure: No On Antibiotic Therapy: No Respiratory Rate >20: No Heart Rate >90: No Temp<36 C (96.8 F) or >38.3 C: No SBP <90 or MAP <65 mmHG: No New Acute Mental Status Change: No Is the patient on CPAP, BIPAP,: No Physician Orders Urinalysis (03/08/25 10:09) Ct Ab Pel Wo Con-No Oral Or Iv (03/08/25 10:09) Blood Culture (03/08/25 10:09) Aspirin Tablet (03/09/25 10:00) Atorvastatin (Lipitor) (03/08/25 22:00) Lisinopril Tablet (Zestril Tablet) (03/09/25 10:00) Glucose Blood (Accu-Chek Comfort Curve T (03/08/25 17:00) Insulin R (Human) (Insulin R) (03/08/25 17:00) Dextrose 50% Syringe (03/08/25 13:00) Allergies (03/08/25 12:59) Code Status (03/08/25 12:59) Sodium Chloride Lock (Saline Lock Ns) (03/08/25 14:00) Oxygen Per Hour (03/08/25 12:59) Hydrocodone-Acet 5/325mg Tab ([place] 5/32 (03/08/25 13:00) Ondansetron Hcl (Zofran) (03/08/25 13:00) Docusate Sodium Capsule (Colace Capsule) (03/08/25 13:00) Complete Blood Count (03/09/25 04:00) Comprehensive Metabolic Panel (03/09/25 04:00) Condition: Serious (03/08/25 12:59) Acetaminophen Tablet (Tylenol Tablet) (03/08/25 13:00) Bedrest With Bathroom Privileg (03/08/25 12:59) Sequential Compression Device (03/08/25 ) Vital Signs Date Time Temp Pulse Resp B/P (MAP) Pulse Ox O2 Delivery O2 Flow Rate FiO2 03/08/25 09:41 97.6 83 16 128/95 97 97.6 Laboratory Tests Test 03/08/25 11:20 Lactic Acid Level 1.2 mmol/L (0.4-2.0) White Blood Count 6.1 10^3/uL (4.4-10.8) Assessment/Plan Assessment/Plan Hydronephrosis Bilateral flank pain Generalized weakness Hydronephrosis with renal and ureteral calculous obstruction Plan 1. Admit to med surge unit 2. Breathing treatment 3. Pain control management 4. Management of fluids and electrolytes 5. Consultation for Urology 6. Diagnostic tests abdomen/pelvis CT 7. DVT prophylaxis-on SCDs 8. Repeat labs CBC, CMP in a.m. 9. Continue with current medical management 10. Treatment plan discussed with patient and RN. Patient verbalized understanding. Plan discussed with: Patient, Other (RN) My Orders Orders - KAYLA MESA DNP Procedure Category Date Status Time Aspirin Tablet PHA 03/09/25 Logged 10:00 Atorvastatin (Lipitor) PHA 03/08/25 Logged 22:00 Lisinopril Tablet PHA 03/09/25 Logged (Zestril Tablet) 10:00 Glucose Blood PHA 03/08/25 Logged (Accu-Chek Comfort 17:00 Insulin R (Human) PHA 03/08/25 Logged (Insulin R) 17:00 Dextrose 50% Syringe PHA 03/08/25 Logged 13:00 Allergies BEATRIZ 03/08/25 In Process 12:59 Code Status CODE 03/08/25 Transmitted 12:59 Sodium Chloride Lock PHA 03/08/25 Logged (Saline Lock Ns) 14:00 Oxygen Per Hour RT 03/08/25 Transmitted 12:59 Hydrocodone-Acet PHA 03/08/25 Logged 5/325mg Tab ([place] 13:00 Ondansetron Hcl PHA 03/08/25 Logged (Zofran) 13:00 Docusate Sodium PHA 03/08/25 Logged Capsule (Colace 13:00 Complete Blood Count LAB 03/09/25 Verified 04:00 Comprehensive LAB 03/09/25 Verified Metabolic Panel 04:00 Condition: Serious BEATRIZ 03/08/25 In Process 12:59 Acetaminophen Tablet PHA 03/08/25 Logged (Tylenol Tablet) 13:00 Bedrest With Bathroom BEATRIZ 03/08/25 In Process Privileg 12:59 Sequential BEATRIZ 03/08/25 In Process Compression Device Problem List: (1) Hydronephrosis (2) Bilateral flank pain (3) Generalized weakness (4) Hydronephrosis with renal and ureteral calculous obstruction Date of Service: Mar 08, 2025 Billing Provider: KAYLA MESA DNP Common Visit Codes: [id number] INP/OBS CARE (HIGH) KAYLA MESA DNP Mar 08, 2025 14:16
[2025-03-08] MEDS: ACCU-CHEK COMFORT CURVE STRIP VI SCH (17:00)
[2025-03-08] MEDS: InsuLIN REG 1unit/0.01ml Soln (100units/ml) SC SCH (17:00)
--- NOTE | 2025-03-08 17:41 | DVHINCON2 ---
Date of service: Mar 08, 2025 Referring Physician Hospitalist Reason for Consultation Right ureteral stone, 6 mm, with hydronephrosis Left uretera stone, 11 mm, s/p left PNT 01/06/25 History of Present Illness 69-year-old male with multiple past medical history including CVA, diabetes mellitus, and hypertension who presented to [facility] ED with complaint of left flank pain for the past 8 days. He had left nephrostomy tube placed on 01/06/25 due to 11 mm left ureteral stone. Patient has been experiencing left flank pain around nephrostomy tube as well as chills. He was advised by wound care nurse to go to the ER for possible infection. Patient states he was scheduled for lithotripsy, but was unable to be done due to cardiac workup, patient is unsure as to why, has an appointment with supply service worker in 2 weeks. Patient was seen and evaluated in the ED, laboratory data shows WBC 6.1, platelets 283, sodium 140, potassium 3.8, BUN 19, creatinine 1.10, glucose 102, calcium 8.7, blood pressure 128/95, heart rate 82, temperature 97.6 F, O2 saturation 97% on room air. Abdomen/pelvis CT revealing moderate to marked right hydronephrosis and proximal hydroureter with obst ructing 6 mm calculus in the mid to distal right ureter; left nephrostomy tube in place, obstructing calculus in the proximal to mid left ureter, minimally change in location compared to the prior CT. Please see medication orders section in the computer. On my assessment, patient denied chest pain, no dizziness, headache, diaphoresis, shortness of breaths, no abdominal pain, diarrhea, nausea, vomiting, fever, chills. Patient was admitted for further evaluation and medical management. Past Medical History CVA (x3), DM, High Lipids, HTN, Kidney Stones Past Surgical History Nephrostomy to the left flank Family History: Patient reports no known family medical history. Allergies: Coded Allergies: NO KNOWN ALLERGIES (Unverified , 01/05/25) Home Meds Active Scripts Cephalexin (KEFLEX CAPSULE) 250 Mg Cp, 500 MG PO BID for 5 Days, #20 CAP 0 Refills Prov:NATALY ROBERSON RESIDENT 01/08/25 Tamsulosin Hcl (Flomax) 0.4 Mg Cap, 0.4 MG PO QPM for 30 Days, #30 CAP Prov:DANATALY RESIDENT 01/08/25 Reported Medications Aspirin (Aspir-81) 81 Mg Tab, 1 TAB PO DAILY, #30 TAB 5 Refills 01/05/25 Cholecalciferol (VITAMIN D3) 2,000 Unit Tab, 1 TAB PO DAILY, #30 TAB 5 Refills 01/05/25 Temazepam (Restoril) 15 Mg Cp, 1 CAP PO QPM, #30 CAP 1 Refill 01/05/25 Metformin Hydrochloride (Metformin Hcl) 500 Mg Tab, 1 TAB PO BID, #60 TAB 3 Refills 01/05/25 Lisinopril (Lisinopril) 20 Mg Tab, 1 TAB PO DAILY, #30 TAB 5 Refills 01/05/25 Hydrochlorothiazide (Hydrochlorothiazide) 25 Mg Tab, 1 TAB PO DAILY, #30 TAB 5 Refills 01/05/25 Atorvastatin Calcium (Lipitor) 80 Mg Tab, 1 TAB PO DAILY, #30 TAB 5 Refills 01/05/25 Current Medications Current Medications Medications (Trade) Dose Ordered Sig/Josep Route PRN Reason Start Time Stop Time Status Last Admin Aspirin 81 mg DAILY PO 03/09/25 10:00 03/08/25 17:28 DC Atorvastatin Calcium (Lipitor) 40 mg HS PO 03/08/25 22:00 Lisinopril (Zestril Tablet) 20 mg DAILY PO 03/09/25 10:00 Diagnostic Test (Pha) (Accu-Chek Comfort Curve T) 1 strip ACHS 03/08/25 17:00 Insulin Human Regular (InsuLIN R) ACHS SC 03/08/25 17:00 Dextrose 50 ml UD PRN IV Blood Sugar LESS THAN 60 03/08/25 13:00 Sodium Chloride (Saline Lock Ns) 10 ml Q8HR IV 03/08/25 14:00 Acetaminophen/ Hydrocodone Bitart ([place] 5/325MG Tab) 1 tab Q4HP PRN PO MODERATE PAIN (4-6 PAIN SCALE) 03/08/25 13:00 Ondansetron HCl (Zofran) 4 mg Q4HP PRN IV NAUSEA / VOMITING 03/08/25 13:00 Docusate Sodium (Colace Capsule) 100 mg BIDPRN PRN PO FOR CONSTIPATION 03/08/25 13:00 Acetaminophen (Tylenol Tablet) 650 mg Q6HP PRN PO PAIN SCALE 1-3 OR TEMP>100.4 10/13/25 13:00 Nitroglycerin (Ntrostat Sublingual) 0.4 mg Q5MINP PRN SL FOR CHEST PAIN 03/08/25 14:15 Morphine Sulfate 2 mg Q30M PRN IV FOR CHEST PAIN 03/08/25 14:15 Review of Systems Constitutional: Yes: Weakness; No: Fever, Chills, Sweats, Malaise, Other Eyes: No: Pain, Vision change, Conjunctivae inflammation, Eyelid inflammation, Other, Redness ENT: No: Ear pain, Ear discharge, Nose pain, Nose discharge, Nose congestion, Mouth pain, Mouth swelling, Throat pain, Throat swelling, Other Respiratory: No: Cough, Dry, Shortness of breath, SOB with excertion, Wheezing, Hemoptysis, Pleuritic Pain, Sputum, Wheezing, Other Cardiovascular: No: Chest Pain, Palpitations, Orthopnea, Paroxysmal Noc. Dyspnea, Edema, Lt Headedness, Other Gastrointestinal: No: Nausea, Vomiting, Abdominal Pain, Diarrhea, Constipation, Melena, Hematochezia, Other Genitourinary: No Dysuria, No Frequency, No Incontinence, No Hematuria, No Ret ention; Other (Left flank pain, left nephrostomy tube.) Musculoskeletal: No: other, neck pain, shoulder pain, arm pain, back pain, hand pain, leg pain, foot pain Skin: No: Rash, Lesions, Jaundice, Bruising, Other Neurological: No: Weakness, Numbness, Incoordination, Change in speech, Confusion, Seizures, Other Allergies: Coded Allergies: NO KNOWN ALLERGIES (Unverified , 01/05/25) Medications Current Medications Medications Dose Ordered Sig/Josep Route Start Time Stop Time Status Last Admin Dose Admin Aspirin 81 mg DAILY PO 03/09/25 10:00 UNV Atorvastatin Calcium 40 mg HS PO 03/08/25 22:00 UNV Lisinopril 20 mg DAILY PO 03/09/25 10:00 UNV Diagnostic Test (Pha) 1 strip ACHS 03/08/25 17:00 UNV Insulin Human Regular ACHS SC 03/08/25 17:00 UNV Dextrose 50 ml UD PRN IV 03/08/25 13:00 UNV Sodium Chloride 10 ml Q8HR IV 03/08/25 14:00 UNV Acetaminophen/ Hydrocodone Bitart 1 tab Q4HP PRN PO 03/08/25 13:00 UNV Ondansetron HCl 4 mg Q4HP PRN IV 03/08/25 13:00 UNV Docusate Sodium 100 mg BIDPRN PRN PO 03/08/25 13:00 UNV Acetaminophen 650 mg Q6HP PRN PO 03/08/25 13:00 UNV Vital Signs Vital Signs Date Time Temp Pulse Resp B/P (MAP) Pulse Ox O2 Delivery O2 Flow Rate FiO2 03/08/25 15:52 71 20 118/77 (91) 98 03/08/25 09:41 97.6 97.6 Physical Exam Vital Signs Date Time Temp Pulse Resp B/P (MAP) Pulse Ox O2 Delivery O2 Flow Rate FiO2 03/08/25 09:41 97.6 83 16 128/95 97 97.6 General Appearance: Alert, Oriented X3, Cooperative, No acute distress HEENT: Atraumatic, PERRLA, EOMI, Mucous membr. moist/pink Respiratory: Normal air movement Cardiovascular: Regular rate, Normal S1, Normal S2, No murmurs Abdominal: Normal bowel sounds, Soft, No tenderness, No hepatospenomegaly, No masses Extremities: No clubbing, No cyanosis, No edema, Normal pulses, No tenderness/swelling Skin: No rashes, No breakdown, No significant lesion Neuro: Normal speech, Normal tone, Sensation intact, Cranial nerves 3-12 NL, Reflexes 2+, Other (Generalized weakness) Psych/Mental Status: Mental status NL, Mood NL Labs/Diagnostic Data Labs Test 03/08/25 11:20 Range/Units White Blood Count 6.1 4.4-10.8 10^3/uL Red Blood Count 3.99 L 4.5-5.90 10^6/uL Hemoglobin 12.3 L 13.5-17.5 g/dL Hematocrit 36.0 L 41.0-53.0 % Mean Corpuscular Volume 90.3 80.0-100.0 fL Mean Corpuscular Hemoglobin 30.9 28.0-32.0 pg Mean Corpuscular Hemoglobin Concent 34.2 32.0-36.0 g/dL Red Cell Distribution Width 13.3 11.8-14.3 % Platelet Count 283 140-450 10^3/uL Mean Platelet Volume 7.5 6.9-10.8 fL Neutrophils (%) (Auto) 58.7 37.0-80.0 % Lymphocytes (%) (Auto) 30.1 10.0-50.0 % Monocytes (%) (Auto) 8.5 0.0-12.0 % Eosinophils (%) (Auto) 2.0 0.0-7.0 % Basophils (%) (Auto) 0.7 0.0-2.0 % Neutrophils # (Auto) 3.6 1.6-8.6 10 ^3/uL Lymphocytes # (Auto) 1.8 0.4-5.4 10 ^3/uL Monocytes # (Auto) 0.5 0-1.3 10 ^3/uL Eosinophils # (Auto) 0.1 0-0.8 10 ^3/uL Basophils # (Auto) 0 0-0.2 10 ^3/uL Nucleated Red Blood Cells 0.0 % Sodium Level 140 136-145 mmol/L Potassium Level 3.8 3.5-5.1 mmol/L Chloride Level 104 98-107 mmol/L Carbon Dioxide Level 26 20-31 mmol/L Anion Gap 10 5-15 Blood Urea Nitrogen 19 9-23 mg/dL Creatinine 1.10 0.700-1.30 mg/dL Glomerular Filtration Rate Calc 73 >90 mL/min BUN/Creatinine Ratio 17.3 10.0-20.0 Serum Glucose 102 74-106 mg/dL Lactic Acid Level 1.2 0.4-2.0 mmol/L Calcium Level 8.7 8.7-10.4 mg/dL Assessment Left ureteral stone, 11 mm Left PNT, in situ Right ureteral stone, 6 mm Right renal stone Plan/Recommendation Right URSLL and stent placement Left URSLL and stent placement, removal of nephrostomy Plan discussed with: Patient, Other CARLOS CHADWICK MD Mar 08, 2025 17:41
[2025-03-08] MEDS: ATORVASTATIN 20 MG TAB PO SCH (22:00)
[2025-03-08 22:30] VITALS: BP 118/66; PULSE 72; RESP 17; TEMP 98; O2SAT 97
[2025-03-08 23:02] VITALS: BP 118/66; PULSE 72; RESP 14; TEMP 98; O2SAT 94
[2025-03-08] MEDS ORDERED: TERA2CAP79 PO (23:29)
[2025-03-09] VITALS (7 sets, daily range): BP systolic 117–142; BP diastolic 63–77; PULSE 61–83; RESP 15–18; TEMP 97.4–98.4; O2SAT 95–98
[2025-03-09 03:03] LABS: Urine Protein, UAD 1+ (Negative); Urine WBC Clumps PRESENT /hpf (None Seen)
[2025-03-09 05:49] LABS: Hematocrit 32.7 % (41.0-53.0); Hemoglobin 11.5 g/dL (13.5-17.5); Mean Corpuscular Hemoglobin 31.1 pg (28.0-32.0); Mean Corpuscular Volume 88.4 fL (80.0-100.0); Nucleated Red Blood Cells % 0.1 %
[2025-03-09 06:01] LABS: Alanine Aminotransferase 14 U/L (7-40); Albumin 3.8 g/dL (3.2-4.8); Alkaline Phosphatase 67 U/L (46-116); Anion Gap 11 (5-15); BUN/Creatinine Ratio 18.5 (10.0-20.0); Blood Urea Nitrogen 23 mg/dL (9-23); Calcium 8.5 mg/dL (8.7-10.4); Carbon Dioxide 26 mmol/L (20-31); Chloride 104 mmol/L (98-107); Glucose 76 mg/dL (74-106); Potassium 3.7 mmol/L (3.5-5.1); Sodium 141 mmol/L (136-145); Total Protein 6.5 g/dL (5.7-8.2)
[2025-03-09 06:10] LABS: Bilirubin, Total 0.3 mg/dL (0.2-1.0)
[2025-03-09] MEDS: LISINOPRIL 20 MG TAB PO SCH (09:00)
[2025-03-09] MEDS: CIPROFLOXACIN 400MG/200ML 200 ML IV ONE (11:19)
--- NOTE | 2025-03-09 12:28 | DVHPN2 ---
Progress Note - Dictate Date Seen: Mar 09, 2025 Medical Necessity Reason Pt with a Central, PICC or Fol: Yes Medical Necessity Reason Left PNT in situ Left ureteral stone Right ureteral stone Right hydronephrosis Subjective Patient c/o left flank pain. vital signs Vital Sign Date Time Temp Pulse Resp B/P (MAP) Pulse Ox O2 Delivery O2 Flow Rate FiO2 03/09/25 09:00 118/65 03/09/25 09:00 97.7 67 18 97 97.7 03/09/25 08:00 Room Air* 0 21 Total Intake and Output 03/08/25 03/08/25 03/09/25 15:00 23:00 07:00 Intake Total 410 ml Balance 410 ml medications Current Medications Medications Dose Ordered Sig/Josep Route Start Time Stop Time Status Last Admin Dose Admin Atorvastatin Calcium 40 mg HS PO 03/08/25 22:00 Lisinopril 20 mg DAILY PO 03/09/25 10:00 Diagnostic Test (Pha) 1 strip ACHS 03/08/25 17:00 03/09/25 05:50 1 STRIP Insulin Human Regular ACHS SC 03/08/25 17:00 Dextrose 50 ml UD PRN IV 03/08/25 13:00 Sodium Chloride 10 ml Q8HR IV 03/08/25 14:00 03/09/25 05:50 10 ML Acetaminophen/ Hydrocodone Bitart 1 tab Q4HP PRN PO 03/08/25 13:00 Ondansetron HCl 4 mg Q4HP PRN IV 03/08/25 13:00 Docusate Sodium 100 mg BIDPRN PRN PO 03/08/25 13:00 Acetaminophen 650 mg Q6HP PRN PO 03/08/25 13:00 Nitroglycerin 0.4 mg Q5MINP PRN SL 03/08/25 14:15 Morphine Sulfate 2 mg Q30M PRN IV 03/08/25 14:15 laboratory and microbiology Laboratory Tests 03/09/25 04:28 Test 03/09/25 04:28 Range/Units Serum Glucose 76 74-106 mg/dL Assessment/Plan Left ureteral stone, 11 mm Left PNT, in situ Right ureteral stone, 6 mm Right renal stone SURGERY CANCELLED BY DR. CALDERON, ANESTHESIOLOGY. HE NEEDS CARDIAC CLEARANCE. Plan discussed with: Patient, Other CARLOS CHADWICK MD Mar 09, 2025 12:28
--- NOTE | 2025-03-09 12:52 | DVHPN2 ---
Reviewed: Care Plan, H&P, Labs, Medications, Previous Orders, Radiology Changes from previous H/P or p: No Changes Eyes: No Pain, No Vision change, No Conjunctivae inflammation, No Eyelid inflammation, No Other, No Redness ENT: No Ear pain, No Ear discharge, No Nose pain, No Nose discharge, No Nose congestion, No Mouth pain, No Mouth swelling, No Throat pain, No Throat swelling, No Other Cardiovascular: No Chest Pain, No Palpitations, No Orthopnea, No Paroxysmal Noc. Dyspnea, No Edema, No Lt Headedness, No Other Respiratory: No Cough, No Dry, No Shortness of breath, No SOB with excertion, No Wheezing, No Hemoptysis, No Pleuritic Pain, No Sputum, No Other Gastrointestinal: No Nausea, No Vomiting, No Abdominal Pain, No Diarrhea, No Constipation, No Melena, No Hematochezia, No Other Genitourinary: No Dysuria, No Frequency, No Incontinence, No Hematuria, No Retention; Other (Left flank pain, left nephrostomy tube.) Musculoskeletal: No other, No neck pain, No shoulder pain, No arm pain, No back pain, No hand pain, No leg pain, No foot pain Skin: No Rash, No Lesions, No Jaundice, No Bruising, No Other Objective Vitals Vital Signs Date Time Temp Pulse Resp B/P (MAP) Pulse Ox O2 Delivery O2 Flow Rate FiO2 03/09/25 09:00 118/65 03/09/25 09:00 97.7 67 18 97 97.7 03/09/25 08:00 Room Air* 0 21 Intake/Output Intake and Output 03/09/25 07:00 Intake Total 410 ml Balance 410 ml Intake Oral 410 ml # Voids 1 Medications Current Medications Medications Dose Ordered Sig/Josep Route Start Time Stop Time Status Last Admin Dose Admin Atorvastatin Calcium 40 mg HS PO 03/08/25 22:00 Lisinopril 20 mg DAILY PO 03/09/25 10:00 Diagnostic Test (Pha) 1 strip ACHS 03/08/25 17:00 03/09/25 05:50 1 STRIP Insulin Human Regular ACHS SC 03/08/25 17:00 Dextrose 50 ml UD PRN IV 03/08/25 13:00 Sodium Chloride 10 ml Q8HR IV 03/08/25 14:00 03/09/25 05:50 10 ML Acetaminophen/ Hydrocodone Bitart 1 tab Q4HP PRN PO 03/08/25 13:00 Ondansetron HCl 4 mg Q4HP PRN IV 03/08/25 13:00 Docusate Sodium 100 mg BIDPRN PRN PO 03/08/25 13:00 Acetaminophen 650 mg Q6HP PRN PO 03/08/25 13:00 Nitroglycerin 0.4 mg Q5MINP PRN SL 03/08/25 14:15 Morphine Sulfate 2 mg Q30M PRN IV 03/08/25 14:15 Laboratory Results Laboratory Tests 03/09/25 04:28 Chemistry Test 03/09/25 04:28 Albumin 3.8 g/dL (3.2-4.8) Calcium Level 8.5 mg/dL (8.7-10.4) L Total Protein 6.5 g/dL (5.7-8.2) LFT Test 03/09/25 04:28 Alanine Aminotransferase (ALT) 14 U/L (7-40) Alkaline Phosphatase 67 U/L (46-116) Aspartate Amino Transferase (AST) 17 U/L (13-40) Total Bilirubin 0.3 mg/dL (0.2-1.0) Urinalysis Test 03/09/25 01:30 Urine Color Brown (Yellow) H Urine Clarity Ex.turbid (Clear) Urine pH 6.0 (5.0-9.0) Urine Specific [place] 1.010 (1.001-1.035) Urine Protein 1+ (Negative) H Urine Ketones Negative (Negative) Urine Blood 2+ /uL (Negative) H Urine Nitrite 1+ (Negative) H Urine Bilirubin Negative (Negative) Urine Urobilinogen Normal mg/dL (Negative) Urine Leukocyte Esterase 2+ /uL (Negative) Urine RBC 24 /hpf (0 - 3) Urine WBC Clumps Present /hpf (None Seen) Urine Microscopic WBC 4148 /HPF (0-3) H Urine Squamous Epithelial Cells None seen /hpf (<5) Urine Bacteria Few /hpf (None Seen) H Urine Glucose Normal mg/dL (Normal) Microbiology Microbiology Date/Time Source Procedure Growth Status 03/08/25 11:28 Blood Blood Culture - Preliminary NO GROWTH AFTER 24 HOURS OF INCUBATION. Resulted Labs and/or images reviewed: Labs reviewed by me, Image(s) reviewed by me Assessment/Plan Assessment/Plan Right flank pain Right ureteral stone 6 mm: Patient getting cystoscopy with ureteral stent placement by Dr. Marquez today Right hydronephrosis Left ureteral stone, 11 mm Left PNT, in situ Sepsis secondary to urinary tract infection: Blood cultures urine cultures Rocephin Diabetes Hypertension Hypercholesterolemia History of CVA x3 History of kidney stones Time spent 70 minutes Advanced care planning time 20 minutes Patient is full code Plan discussed with: Patient My Orders Orders - AMIRA MILNER MD Procedure Category Date Status Time * Cardiology Consult CONS 03/09/25 Transmitted 12:14 Urine Bacterial TONY 03/09/25 Transmitted Culture 12:48 Date of Service: Mar 09, 2025 Billing Provider: AMIRA MILNER MD Common Visit Codes: [id number] CARE 30-74 MIN AMIRA MILNER MD Mar 09, 2025 12:52
--- NOTE | 2025-03-09 15:25 | ECG ---
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
--- NOTE | 2025-03-09 17:09 | DVHINCON2 ---
Date Seen: Mar 09, 2025 Referring Physician MD Iglesia Reason for Consultation Cardiac risk stratification History of Present Illness This is a Lao-speaking 69-year-old male patient who presents to the emergency room with chief complaint of left flank pain. The patient has a left nephrostomy tube in place and states that his home health nurse noticed that the site appeared reddened. She instructed the patient to go to urgent care. The patient was then instructed to go to the emergency room for further evaluation. He does report minimal left flank pain. Urology is involved and has requested cardiology for preprocedural cardiovascular examination. A twelve lead electrocardiogram was ordered at time of assessment and reveals normal sinus rhythm without any significant ST segment changes. The patient denies any cardiac symptoms such as chest pain, shortness of breath, palpitations, or dizziness. Significant past medical history includes hypertension, dyslipidemia, type 2 diabetes mellitus, multiple CVAs with right-sided deficit, kidney stones, and nephrostomy tube placement. Past Medical History Past medical history reviewed. No other significant than mentioned above. Past Surgical History Patient denies any surgical intervention Family History: Patient reports no known family medical history. Family History Family history reviewed. Social History The patient has a 20 pack-year history, quit smoking approximately 20 years ago Denies illicit drug use Admits to social alcohol use Allergies: Coded Allergies: NO KNOWN ALLERGIES (Unverified , 01/05/25) Home Meds Active Scripts Cephalexin (KEFLEX CAPSULE) 250 Mg Cp, 500 MG PO BID for 5 Days, #20 CAP 0 Refills Prov:NATALY ROBERSON RESIDENT 01/08/25 Tamsulosin Hcl (Flomax) 0.4 Mg Cap, 0.4 MG PO QPM for 30 Days, #30 CAP Prov:NATALY ROBERSON RESIDENT 01/08/25 Reported Medications Terazosin Hcl (Terazosin Hcl) 2 Mg Cap, 2 MG PO, CAP 03/08/25 Aspirin (Aspir-81) 81 Mg Tab, 1 TAB PO DAILY, #30 TAB 5 Refills 01/05/25 Cholecalciferol (VITAMIN D3) 2,000 Unit Tab, 1 TAB PO DAILY, #30 TAB 5 Refills 01/05/25 Temazepam (Restoril) 15 Mg Cp, 1 CAP PO QPM, #30 CAP 1 Refill 01/05/25 Metformin Hydrochloride (Metformin Hcl) 500 Mg Tab, 1 TAB PO BID, #60 TAB 3 Refills 01/05/25 Lisinopril (Lisinopril) 20 Mg Tab, 1 TAB PO DAILY, #30 TAB 5 Refills 01/05/25 Hydrochlorothiazide (Hydrochlorothiazide) 25 Mg Tab, 1 TAB PO DAILY, #30 TAB 5 Refills 01/05/25 Atorvastatin Calcium (Lipitor) 80 Mg Tab, 1 TAB PO DAILY, #30 TAB 5 Refills 01/05/25 Home Meds Home medications reviewed. Current Medications Current Medications Medications (Trade) Dose Ordered Sig/Josep Route PRN Reason Start Time Stop Time Status Last Admin Aspirin 81 mg DAILY PO 03/09/25 10:00 03/08/25 17:28 DC Atorvastatin Calcium (Lipitor) 40 mg HS PO 03/08/25 22:00 Lisinopril (Zestril Tablet) 20 mg DAILY PO 03/09/25 10:00 Ceftriaxone Sodium 50 ml @ 100 mls/hr DAILY@09 IV 03/10/25 09:00 Review of Systems Constitutional: No symptom reported Ears, Nose, & Throat: No symptom reported Eyes: No symptom reported Neurological: No symptoms reported Pulmonary/Respiratory: No symptoms reported Cardiovascular: No symptom reported Gastrointestinal: No symptom reported Genitourinary: Left flank pain Musculoskeletal: No symptom reported Skin: No symptom reported Psychiatric: No symptom reported Endocrine: No symptom reported Hematologic/Lymphatic: No symptom reported Vital Signs Vital Signs Date Time Temp Pulse Resp B/P (MAP) Pulse Ox O2 Delivery O2 Flow Rate FiO2 03/09/25 09:00 118/65 03/09/25 09:00 97.7 67 18 97 97.7 03/09/25 08:00 Room Air* 0 21 Physical Exam General Appearance: Cooperative. Well-developed. Well-nourished. No acute distress. Pulmonary/Respiratory: Clear, bilateral breaths sounds. Cardiovascular/Chest: Regular rate and rhythm. Peripheral Pulses: 2+ Radial (R). 2+ Radial (L). 2+ Pedal (R). 2+ Pedal (L) Abdominal Exam: Normal bowel sounds. Ankle Exam: Negative ankle edema Lower extremities: Negative lower extremity edema Neuro/Mental Status: A/OX4, coherent. Thoughts/Psych: Normal thought pattern. Appropriate mood and affect. Good judgment and insight. Appearance: No acute distress. Skin Exam: Normal inspection. Normal color. Warm and dry. Labs/Diagnostic Data Labs Test 03/09/25 05:47 03/09/25 04:28 03/09/25 01:30 03/08/25 11:20 Range/Units POC Glucose 81 70-106 mg/dl White Blood Count 6.2 4.4-10.8 10^3/uL Red Blood Count 3.69 L 4.5-5.90 10^6/uL Hemoglobin 11.5 L 13.5-17.5 g/dL Hematocrit 32.7 L 41.0-53.0 % Mean Corpuscular Volume 88.4 80.0-100.0 fL Mean Corpuscular Hemoglobin 31.1 28.0-32.0 pg Mean Corpuscular Hemoglobin Concent 35.2 32.0-36.0 g/dL Red Cell Distribution Width 13.2 11.8-14.3 % Platelet Count 289 140-450 10^3/uL Mean Platelet Volume 7.8 6.9-10.8 fL Neutrophils (%) (Auto) 56.1 37.0-80.0 % Lymphocytes (%) (Auto) 28.8 10.0-50.0 % Monocytes (%) (Auto) 12.4 H 0.0-12.0 % Eosinophils (%) (Auto) 1.9 0.0-7.0 % Basophils (%) (Auto) 0.8 0.0-2.0 % Neutrophils # (Auto) 3.4 1.6-8.6 10 ^3/uL Lymphocytes # (Auto) 1.8 0.4-5.4 10 ^3/uL Monocytes # (Auto) 0.8 0-1.3 10 ^3/uL Eosinophils # (Auto) 0.1 0-0.8 10 ^3/uL Basophils # (Auto) 0.1 0-0.2 10 ^3/uL Nucleated Red Blood Cells 0.1 % Sodium Level 141 136-145 mmol/L Potassium Level 3.7 3.5-5.1 mmol/L Chloride Level 104 98-107 mmol/L Carbon Dioxide Level 26 20-31 mmol/L Anion Gap 11 5-15 Blood Urea Nitrogen 23 9-23 mg/dL Creatinine 1.24 0.700-1.30 mg/dL Glomerular Filtration Rate Calc 63 >90 mL/min BUN/Creatinine Ratio 18.5 10.0-20.0 Serum Glucose 76 74-106 mg/dL Calcium Level 8.5 L 8.7-10.4 mg/dL Total Bilirubin 0.3 0.2-1.0 mg/dL Aspartate Amino Transferase (AST) 17 13-40 U/L Alanine Aminotransferase (ALT) 14 7-40 U/L Alkaline Phosphatase 67 46-116 U/L Total Protein 6.5 5.7-8.2 g/dL Albumin 3.8 3.2-4.8 g/dL Urine Color Brown H Yellow Urine Clarity Ex.turbid Clear Urine pH 6.0 5.0-9.0 Urine Specific [place] 1.010 1.001-1.035 Urine Protein 1+ H Negative Urine Ketones Negative Negative Urine Blood 2+ H Negative /uL Urine Nitrite 1+ H Negative Urine Bilirubin Negative Negative Urine Urobilinogen Normal Negative mg/dL Urine Leukocyte Esterase 2+ Negative /uL Urine RBC 24 0 - 3 /hpf Urine WBC Clumps Present None Seen /hpf Urine Microscopic WBC 4148 H 0-3 /HPF Urine Squamous Epithelial Cells None seen <5 /hpf Urine Bacteria Few H None Seen /hpf Urine Glucose Normal Normal mg/dL Lactic Acid Level 1.2 0.4-2.0 mmol/L Microbiology Date/Time Source Procedure Growth Status 03/08/25 11:28 Blood Blood Culture - Preliminary NO GROWTH AFTER 24 HOURS OF INCUBATION. Resulted Assessment Preprocedural cardiovascular examination Hypertension Dyslipidemia Left and right ureteral stones Right renal stone Multiple CVAs with right-sided deficit Type 2 diabetes mellitus Plan/Recommendation We will continue with the following plan/recommendations (Dr. Hart): A transthoracic echocardiogram reveals an EF of 65% with normal valves. Chest x-ray impression reveals no acute cardiopulmonary disease. Revised cardiac risk index (Jimmy criteria): 1 point (1.1% risk of major cardiac event). The patient has no underlying history of congestive heart failure, coronary artery disease, or equivalent of cardiac symptoms. Prior to admission, the patient reports a fair functional capacity---uses wheelchair given history of CVA. Per Cardiology standpoint, the patient is at an acceptable risk for moderate risk surgery. There is no additional cardiac workup indicated prior to surgery. Thank you for allowing us to care for this patient. Please call with any questions or concerns. Critical care time spent: 44 minutes This medical document was created using an electronic medical record system with voice recognition software and computerized dictation system. Although this document has been carefully reviewed, there might still be some phonetic and typographical errors. Occasional wrong-word or ``sound-alike substitutions may have occurred due to the inherent limitations of voice recognition software. These areas are purely typographical due to imperfections of the software programs and do not reflect any compromise in the patient's medical care. Please read the chart carefully and recognize, using context, where these substitutions have occurred. Plan discussed with: Patient NYHA Physical activity limitations: NA Date of Service: Mar 10, 2025 Billing Provider: KEYANNA ORNELAS Cardiology Common Codes: [id number]-[id number] INP/OBS CARE (High) Cardiology Consultation Codes: [id number] CONSULT <45MIN KEYANNA ORNELAS Mar 09, 2025 17:09
--- NOTE | 2025-03-09 19:18 | DVH ---
CHEST RADIOGRAPH Indication: preprocedural Technique: Single frontal view of the chest was obtained Comparison: XY CHEST PORTABLE on DOS: 01/06/25 FINDINGS: Lines and Tubes: None Lungs: No focal consolidation. Pleura: No effusion. No pneumothorax. Cardiomediastinal contours: Unremarkable Bones: No acute osseous abnormality. IMPRESSION: No acute cardiopulmonary disease.
[2025-03-09] MEDS: HYDROcodone-ACET 5/325MG TAB PO PRN (21:35)
[2025-03-10] VITALS (8 sets, daily range): BP systolic 115–138; BP diastolic 68–88; PULSE 63–83; RESP 11–18; TEMP 97.3–98.4; O2SAT 93–97
--- NOTE | 2025-03-10 02:19 | DVHINCON2 ---
Date Seen: Mar 09, 2025 Referring Physician MD gIlesia Reason for Consultation Cardiac risk stratification History of Present Illness This is a Sinhala-speaking 69-year-old male with a past medical history of hypertension, dyslipidemia, type 2 diabetes mellitus, multiple CVAs with right- sided deficit, kidney stones, and nephrostomy tube placement who presents to the emergency room with a complaint of left flank pain. The patient has a left nephrostomy tube in place and states that his home health nurse noticed that the site appeared reddened. She instructed the patient to go to urgent care. The patient was then instructed to go to the emergency room for further evaluation. He does report minimal left flank pain. A twelve lead electrocardiogram was ordered at time of assessment and reveals normal sinus rhythm without any significant ST segment changes. The patient denies any cardiac symptoms such as chest pain, shortness of breath, palpitations, or dizziness. Chest x-ray showed NAD. Urology is involved in the patient's care and has requested a cardiology consult for preprocedural cardiovascular examination. Past Medical History Past medical history reviewed. No other significant than mentioned above. Past Surgical History Patient denies any surgical intervention Family History: Patient reports no known family medical history. Allergies: Coded Allergies: NO KNOWN ALLERGIES (Unverified , 01/05/25) Home Meds Active Scripts Cephalexin (KEFLEX CAPSULE) 250 Mg Cp, 500 MG PO BID for 5 Days, #20 CAP 0 Refills Prov:NATALY ROBERSON RESIDENT 01/08/25 Tamsulosin Hcl (Flomax) 0.4 Mg Cap, 0.4 MG PO QPM for 30 Days, #30 CAP Prov:NATALY ROBERSON RESIDENT 01/08/25 Reported Medications Terazosin Hcl (Terazosin Hcl) 2 Mg Cap, 2 MG PO, CAP 03/08/25 Aspirin (Aspir-81) 81 Mg Tab, 1 TAB PO DAILY, #30 TAB 5 Refills 01/05/25 Cholecalciferol (VITAMIN D3) 2,000 Unit Tab, 1 TAB PO DAILY, #30 TAB 5 Refills 01/05/25 Temazepam (Restoril) 15 Mg Cp, 1 CAP PO QPM, #30 CAP 1 Refill 01/05/25 Metformin Hydrochloride (Metformin Hcl) 500 Mg Tab, 1 TAB PO BID, #60 TAB 3 Refills 01/05/25 Lisinopril (Lisinopril) 20 Mg Tab, 1 TAB PO DAILY, #30 TAB 5 Refills 01/05/25 Hydrochlorothiazide (Hydrochlorothiazide) 25 Mg Tab, 1 TAB PO DAILY, #30 TAB 5 Refills 01/05/25 Atorvastatin Calcium (Lipitor) 80 Mg Tab, 1 TAB PO DAILY, #30 TAB 5 Refills 01/05/25 Current Medications Current Medications Medications (Trade) Dose Ordered Sig/Josep Route PRN Reason Start Time Stop Time Status Last Admin Aspirin 81 mg DAILY PO 03/09/25 10:00 03/08/25 17:28 DC Atorvastatin Calcium (Lipitor) 40 mg HS PO 03/08/25 22:00 Lisinopril (Zestril Tablet) 20 mg DAILY PO 03/09/25 10:00 Ceftriaxone Sodium 50 ml @ 100 mls/hr DAILY@ IV 03/10/25 09:00 Review of Systems Constitutional: No symptom reported Ears, Nose, & Throat: No symptom reported Eyes: No symptom reported Neurological: No symptoms reported Pulmonary/Respiratory: No symptoms reported Cardiovascular: No symptom reported Gastrointestinal: No symptom reported Genitourinary: Left flank pain Musculoskeletal: No symptom reported Skin: No symptom reported Psychiatric: No symptom reported Endocrine: No symptom reported Hematologic/Lymphatic: No symptom reported Vital Signs Vital Signs Date Time Temp Pulse Resp B/P (MAP) Pulse Ox O2 Delivery O2 Flow Rate FiO2 03/09/25 17:00 98.4 65 17 142/63 (89) 95 98.4 03/09/25 08:00 Room Air* 0 21 Physical Exam GENERAL: Alert and oriented x 3. No acute distress. EYES: PERRL, EOMI. Anicteric. HENT: Moist mucous membranes. LUNGS: Clear to auscultation bilaterally. CARDIOVASCULAR: Regular rate and rhythm. ABDOMEN: Soft, nontender and nondistended. EXTREMITIES: No edema. NEUROLOGIC: No focal neurological deficits. SKIN: Warm, dry. Labs/Diagnostic Data Labs Test 03/09/25 17:18 03/09/25 04:28 03/09/25 01:30 03/08/25 11:20 Range/Units POC Glucose 97 70-106 mg/dl White Blood Count 6.2 4.4-10.8 10^3/uL Red Blood Count 3.69 L 4.5-5.90 10^6/uL Hemoglobin 11.5 L 13.5-17.5 g/dL Hematocrit 32.7 L 41.0-53.0 % Mean Corpuscular Volume 88.4 80.0-100.0 fL Mean Corpuscular Hemoglobin 31.1 28.0-32.0 pg Mean Corpuscular Hemoglobin Concent 35.2 32.0-36.0 g/dL Red Cell Distribution Width 13.2 11.8-14.3 % Platelet Count 289 140-450 10^3/uL Mean Platelet Volume 7.8 6.9-10.8 fL Neutrophils (%) (Auto) 56.1 37.0-80.0 % Lymphocytes (%) (Auto) 28.8 10.0-50.0 % Monocytes (%) (Auto) 12.4 H 0.0-12.0 % Eosinophils (%) (Auto) 1.9 0.0-7.0 % Basophils (%) (Auto) 0.8 0.0-2.0 % Neutrophils # (Auto) 3.4 1.6-8.6 10 ^3/uL Lymphocytes # (Auto) 1.8 0.4-5.4 10 ^3/uL Monocytes # (Auto) 0.8 0-1.3 10 ^3/uL Eosinophils # (Auto) 0.1 0-0.8 10 ^3/uL Basophils # (Auto) 0.1 0-0.2 10 ^3/uL Nucleated Red Blood Cells 0.1 % Sodium Level 141 136-145 mmol/L Potassium Level 3.7 3.5-5.1 mmol/L Chloride Level 104 98-107 mmol/L Carbon Dioxide Level 26 20-31 mmol/L Anion Gap 11 5-15 Blood Urea Nitrogen 23 9-23 mg/dL Creatinine 1.24 0.700-1.30 mg/dL Glomerular Filtration Rate Calc 63 >90 mL/min BUN/Creatinine Ratio 18.5 10.0-20.0 Serum Glucose 76 74-106 mg/dL Calcium Level 8.5 L 8.7-10.4 mg/dL Total Bilirubin 0.3 0.2-1.0 mg/dL Aspartate Amino Transferase (AST) 17 13-40 U/L Alanine Aminotransferase (ALT) 14 7-40 U/L Alkaline Phosphatase 67 46-116 U/L Total Protein 6.5 5.7-8.2 g/dL Albumin 3.8 3.2-4.8 g/dL Urine Color Brown H Yellow Urine Clarity Ex.turbid Clear Urine pH 6.0 5.0-9.0 Urine Specific [place] 1.010 1.001-1.035 Urine Protein 1+ H Negative Urine Ketones Negative Negative Urine Blood 2+ H Negative /uL Urine Nitrite 1+ H Negative Urine Bilirubin Negative Negative Urine Urobilinogen Normal Negative mg/dL Urine Leukocyte Esterase 2+ Negative /uL Urine RBC 24 0 - 3 /hpf Urine WBC Clumps Present None Seen /hpf Urine Microscopic WBC 4148 H 0-3 /HPF Urine Squamous Epithelial Cells None seen <5 /hpf Urine Bacteria Few H None Seen /hpf Urine Glucose Normal Normal mg/dL Lactic Acid Level 1.2 0.4-2.0 mmol/L Microbiology Date/Time Source Procedure Growth Status 03/08/25 11:28 Blood Blood Culture - Preliminary NO GROWTH AFTER 24 HOURS OF INCUBATION. Resulted Assessment Preprocedural cardiovascular examination. Hypertension. Dyslipidemia. Left and right ureteral stones. Right renal stone. Multiple CVAs with right-sided deficit. Type 2 diabetes mellitus. Plan/Recommendation I agree with your ongoing assessment and care of plan. Patient has been seen by Anh Hall NP on my behalf, her and I discussed the plan with the patient. A transthoracic echocardiogram is ordered. Revised cardiac risk index (Jimmy criteria): 1 point (1.1% risk of major cardiac event). The patient has no underlying history of congestive heart failure, coronary artery disease, or equivalent of cardiac symptoms. Prior to admission, the patient reports a fair functional capacity---uses wheelchair given history of CVA. Per Cardiology standpoint, the patient is at an acceptable risk for moderate risk surgery. There is no additional cardiac workup indicated prior to surgery. Additional plan as per the hospital course. Plan discussed with: Patient NYHA Physical activity limitations: NA Date of Service: Mar 09, 2025 Billing Provider: ENA MCKOY MD Cardiology Common Codes: 38457-[id number] INP/OBS CARE (High) Cardiology Consultation Codes: [id number] CONSULT <45MIN ENA MCKOY MD Mar 09, 2025 19:47
--- NOTE | 2025-03-10 10:32 | DVHSR ---
APPROVED REPORT EXAM: Two-dimensional and M-mode echocardiogram with Doppler and color Doppler. Blood Pressure: 118/65 mmHg INDICATION evaluate cardiac function pre op RISK FACTORS Height: 5'3, Weight: 129 Stroke DIMENSIONS LVDd3.7 (3.8-5.7cm)LA (2D)3.0 (1.9-4.0cm)Aortic Root3.4 (2.0-3.7cm) LVDs2.6 (2.5-4.0cm)LA (MM) (1.9-4.0cm)Aortic Cusp Exc1.7 (1.5-2.0cm) EF (%) 55.0 (55-70%)Rt. Atrium3.1 (1.9-4.0cm)Asc. Aorta cm IVSd0.9 (0.7-1.1cm)RV (D)3.6 (1.8-2.4cm) PWd0.9 (0.7-1.1cm) Mitral Valve MitralMitral Stenosis E wave0.79m/sMV Mean GR.mmHg A wave0.88m/sMV Peak GR.mmHg E/A ratio0.92D MVAcm2 DECEL [id number] 1/2 Timems Aortic Valve Aortic ValveAortic Stenosis V10.98m/Jonathan Mean GR.5mmHg V21.57m/Jonathan Peak GR.10mmHg LVOT Diameter2.0 (1.8-2.4cm)Doppler AVA1.96cm2 Other Information Technically limited study due to patient position. pt laying flat, unable to turn. Conclusion MILD LVH AND MILD LV DIASTOLIC DYSFUNCTION LV EF IS 65% NORMAL VALVES NO EFFUSION
--- NOTE | 2025-03-10 13:04 | DVHPN2 ---
Reviewed: Care Plan, H&P, Labs, Medications, Previous Orders, Radiology Changes from previous H/P or p: No Changes Eyes: No Pain, No Vision change, No Conjunctivae inflammation, No Eyelid inflammation, No Other, No Redness ENT: No Ear pain, No Ear discharge, No Nose pain, No Nose discharge, No Nose congestion, No Mouth pain, No Mouth swelling, No Throat pain, No Throat swelling, No Other Cardiovascular: No Chest Pain, No Palpitations, No Orthopnea, No Paroxysmal Noc. Dyspnea, No Edema, No Lt Headedness, No Other Respiratory: No Cough, No Dry, No Shortness of breath, No SOB with excertion, No Wheezing, No Hemoptysis, No Pleuritic Pain, No Sputum, No Other Gastrointestinal: No Nausea, No Vomiting, No Abdominal Pain, No Diarrhea, No Constipation, No Melena, No Hematochezia, No Other Genitourinary: No Dysuria, No Frequency, No Incontinence, No Hematuria, No Retention; Other (Left flank pain, left nephrostomy tube.) Musculoskeletal: No other, No neck pain, No shoulder pain, No arm pain, No back pain, No hand pain, No leg pain, No foot pain Skin: No Rash, No Lesions, No Jaundice, No Bruising, No Other Objective Vitals Vital Signs Date Time Temp Pulse Resp B/P (MAP) Pulse Ox O2 Delivery O2 Flow Rate FiO2 03/10/25 09:00 97.6 83 18 128/88 (101) 96 97.6 03/10/25 08:00 Room Air* 0 21 Intake/Output Intake and Output 03/10/25 07:00 Intake Total 550 ml Output Total 805 ml Balance -255 ml Intake Oral 450 ml IV Total 100 ml Output Urine Total 805 ml # Bowel Movements 1 Medications Current Medications Medications Dose Ordered Sig/Josep Route Start Time Stop Time Status Last Admin Dose Admin Atorvastatin Calcium 40 mg HS PO 03/08/25 22:00 03/09/25 21:23 40 MG Lisinopril 20 mg DAILY PO 03/09/25 10:00 Diagnostic Test (Pha) 1 strip ACHS 03/08/25 17:00 03/10/25 11:30 1 STRIP Insulin Human Regular ACHS SC 03/08/25 17:00 03/09/25 21:24 2 UNITS Dextrose 50 ml UD PRN IV 03/08/25 13:00 Sodium Chloride 10 ml Q8HR IV 03/08/25 14:00 03/10/25 12:53 10 ML Acetaminophen/ Hydrocodone Bitart 1 tab Q4HP PRN PO 03/08/25 13:00 03/09/25 21:35 1 TAB Ondansetron HCl 4 mg Q4HP PRN IV 03/08/25 13:00 Docusate Sodium 100 mg BIDPRN PRN PO 03/08/25 13:00 Acetaminophen 650 mg Q6HP PRN PO 03/08/25 13:00 Nitroglycerin 0.4 mg Q5MINP PRN SL 03/08/25 14:15 Morphine Sulfate 2 mg Q30M PRN IV 03/08/25 14:15 Ceftriaxone Sodium 50 ml @ 100 mls/hr DAILY@09 IV 03/10/25 09:00 03/10/25 10:15 100 MLS/HR Laboratory Results Laboratory Tests 03/09/25 04:28 Urinalysis Test 03/09/25 01:30 Urine Color Brown (Yellow) H Urine Clarity Ex.turbid (Clear) Urine pH 6.0 (5.0-9.0) Urine Specific [place] 1.010 (1.001-1.035) Urine Protein 1+ (Negative) H Urine Ketones Negative (Negative) Urine Blood 2+ /uL (Negative) H Urine Nitrite 1+ (Negative) H Urine Bilirubin Negative (Negative) Urine Urobilinogen Normal mg/dL (Negative) Urine Leukocyte Esterase 2+ /uL (Negative) Urine RBC 24 /hpf (0 - 3) Urine WBC Clumps Present /hpf (None Seen) Urine Microscopic WBC 4148 /HPF (0-3) H Urine Squamous Epithelial Cells None seen /hpf (<5) Urine Bacteria Few /hpf (None Seen) H Urine Glucose Normal mg/dL (Normal) Microbiology Microbiology Date/Time Source Procedure Growth Status 03/09/25 01:30 Voided Urine Urine Culture - Preliminary Resulted 03/08/25 11:28 Blood Blood Culture - Preliminary NO GROWTH AFTER 48 HOURS OF INCUBATION. Resulted Labs and/or images reviewed: Labs reviewed by me, Image(s) reviewed by me Assessment/Plan Assessment/Plan Right flank pain Right ureteral stone 6 mm: Patient getting cystoscopy with ureteral stent placement by Dr. Marquez today Right hydronephrosis Left ureteral stone, 11 mm Left PNT, in situ Sepsis secondary to urinary tract infection: Blood cultures negative, urine cultures growing Gram-negative rods, continue Rocephin Diabetes Hypertension Hypercholesterolemia History of CVA x3 History of kidney stones Cleared by cardiology Plan discussed with: Patient Date of Service: Mar 10, 2025 Billing Provider: AMIRA MILNER MD Common Visit Codes: [id number] INP/OBS CARE(HIGH) AMIRA MILNER MD Mar 10, 2025 13:04
[2025-03-10] MEDS ORDERED: PROPOFOL 10 MG/ML 20 ML IV ONE (18:22)
[2025-03-10] MEDS ORDERED: MIDAZOLAM HCL 2MG/2ML 2ml VIAL (1mg/ml) ONE (18:22)
[2025-03-10] MEDS ORDERED: fentaNYL CITRATE 100 MCG/2 ML VL ONE (18:32)
[2025-03-10] MEDS: IOHEXOL 300 MG/ML 100ML BOTTLE IJ ONE (18:49)
[2025-03-10] MEDS ORDERED: HYDROmorphone HCL 2 MG/ML VL/or syr IV PRN (19:00)
[2025-03-10] MEDS ORDERED: hydrALAZINE HCL 20 MG/ML VL IV PRN (19:00)
[2025-03-10] MEDS ORDERED: MORPHINE SULFATE 4 MG/ML SYR/VIAL IV PRN (19:00)
[2025-03-10] MEDS ORDERED: ONDANSETRON HCL 4 MG/2 ML VIAL IV PRN (19:00)
[2025-03-10] MEDS ORDERED: MIDAZOLAM HCL 2MG/2ML 2ml VIAL (1mg/ml) IV PRN (19:00)
--- NOTE | 2025-03-10 19:52 | DVHNC2 ---
Procedure - OPERATIVE REPORT Pre-op. Diagnosis: left proximal ureteral calculus, 1.2 cm Right distal ureteral stone, 6 mm Right hydronephrosis, mild Left Percutaneous Nephrostomy tube, in situ Left flank pain BPH History of CVA Post-op. Diagnosis: Same as pre-op diagnosis Operation: Cystoscopy with left retrograde pyelogram, left ureteroscopic laser lithotripsy with left ureteral stent placement removal of left percutaneous nephrostomy tube cystoscopy with right retrograde pyelogram and right ureteral stent placement Anesthesia: General Indications: The patient with chronic left percutaneous nephrostomy tube in-situ for the management of proximal ureteral calculus presents with left flank pain and new finding and of a 6 mm right distal ureteral calculus with mild hydronephrosis. He has elected to undergo left ureteroscope epic laser lithotripsy with stent placement and left percutaneous nephrostomy tube removal as well as possible right ureteroscope with laser lithotripsy and right ureteral stent placement Details of Procedure: The patient was taken to the operating room and underwent general anesthesia. He was placed in dorsal lithotomy position with the area of the genitalia prepped and draped in usual sterile manner. Twenty-two Wallisian rigid cystoscope was assembled then used to access the bladder. Patient demonstrated Coaptite lateral lobes and slightly enlarged median lobe prostate. The left ureteric orifice was identified and cannulated with six Wallisian open-ended catheter for retrograde pyelogram. The proximal ureteral stone obstruction was noted to be prominent. Antegrade nephrostogram was performed simultaneously but the contrast did not reach the proximal ureter due to malpositioned. The nephrostomy tube was removed under fluoroscopy. Next the open-ended catheter was removed and a guidewire was placed into the proximal ureteral stone. The guidewire would not pass beyond it. Using the navigator sheath to access the proximal ureter, the flexible ureteroscope was used and the stone was identified. Two hundred micron laser fiber was used to fragment the stone into smaller pieces. Subsequently I was able to access the renal pelvis and allow the guidewire to pass into the upper renal pelvis. The ureteroscope was removed along with some of the stone fragments. Ureteral catheter was also removed and the guidewire was backloaded onto the cystoscope. A six Wallisian by 24 cm polaris loop ureteral stent was properly positioned under fluoroscopic guidance. The attention was turned to finding the right ureteric orifice and an open-ended catheter was placed for retrograde pyelogram. A distal ureteral stone obstruction was prominent. I was able to get a guidewire passed it and into the renal pelvis. Due to difficult visualization from the bleeding noted on the left ureteric orifice, I elected to bypass the ureteroscopy for the right side and a five Wallisian by 24 cm polaris loop ureteral stent was placed appropriately. Bladder was decompressed and cystoscope was removed in entirety. A Childers catheter was placed temporarily. Specimens: Complications: Findings: Severely trabeculated bladder mucosa made the identification of the right ureteric orifice very difficult. Prostate urethra shows Coaptite lateral lobes with slightly enlarged median lobe. Notes: Patient will need to undergo right extracorporeal shockwave lithotripsy and possible subsequent ureteroscope epic laser lithotripsy for any residual stones. The left ureteral stent will be removed in 4-6 weeks when stone free status noted. CARLOS CHADWICK MD Mar 10, 2025 19:52
--- NOTE | 2025-03-10 21:25 | DVHPN2 ---
Progress Note - Dictate Date Seen: Mar 10, 2025 Medical Necessity Reason Pt with a Central, PICC or Fol: Yes Subjective Patient was seen and evaluated in follow-up. Patient complains of generalized discomfort. BS are WNL. vital signs Vital Sign Date Time Temp Pulse Resp B/P (MAP) Pulse Ox O2 Delivery O2 Flow Rate FiO2 03/10/25 13:00 97.3 74 18 117/72 (87) 97 97.3 03/10/25 08:00 Room Air* 0 21 Total Intake and Output 03/09/25 03/09/25 03/10/25 15:00 23:00 07:00 Intake Total 100 ml 450 ml Output Total 475 ml 330 ml Balance 100 ml -25 ml -330 ml medications Current Medications Medications Dose Ordered Sig/Josep Route Start Time Stop Time Status Last Admin Dose Admin Atorvastatin Calcium 40 mg HS PO 03/08/25 22:00 03/09/25 21:23 40 MG Lisinopril 20 mg DAILY PO 03/09/25 10:00 Diagnostic Test (Pha) 1 strip ACHS 03/08/25 17:00 03/10/25 11:30 1 STRIP Insulin Human Regular ACHS SC 03/08/25 17:00 03/09/25 21:24 2 UNITS Dextrose 50 ml UD PRN IV 03/08/25 13:00 Sodium Chloride 10 ml Q8HR IV 03/08/25 14:00 03/10/25 12:53 10 ML Acetaminophen/ Hydrocodone Bitart 1 tab Q4HP PRN PO 03/08/25 13:00 03/09/25 21:35 1 TAB Ondansetron HCl 4 mg Q4HP PRN IV 03/08/25 13:00 Docusate Sodium 100 mg BIDPRN PRN PO 03/08/25 13:00 Acetaminophen 650 mg Q6HP PRN PO 03/08/25 13:00 Nitroglycerin 0.4 mg Q5MINP PRN SL 03/08/25 14:15 Morphine Sulfate 2 mg Q30M PRN IV 03/08/25 14:15 Ceftriaxone Sodium 50 ml @ 100 mls/hr DAILY@09 IV 03/10/25 09:00 03/10/25 10:15 100 MLS/HR objective GENERAL: Alert and oriented x 3. No acute distress. EYES: PERRL, EOMI. Anicteric. HENT: Moist mucous membranes. LUNGS: Clear to auscultation bilaterally. CARDIOVASCULAR: Regular rate and rhythm. ABDOMEN: Soft, nontender and nondistended. EXTREMITIES: No edema. NEUROLOGIC: No focal neurological deficits. SKIN: Warm, dry. laboratory and microbiology Laboratory Tests 03/09/25 04:28 Test 03/09/25 04:28 Range/Units Serum Glucose 76 74-106 mg/dL Problem List Preprocedural cardiovascular examination. Hypertension. Dyslipidemia. Left and right ureteral stones. Right renal stone. Multiple CVAs with right-sided deficit. Type 2 diabetes mellitus. Assessment/Plan Continued all current supportive medical care. IV antibiotics as ordered. Nitro SL. Morphine and Tylenol for pain management. Additional plan as per the hospital course. Plan discussed with: Patient ENA MCKOY MD Mar 10, 2025 14:45
[2025-03-11] VITALS (8 sets, daily range): BP systolic 101–175; BP diastolic 46–91; PULSE 70–95; RESP 16–18; TEMP 97.5–98.4; O2SAT 96–99
--- NOTE | 2025-03-11 08:03 | ECG ---
[facility] Test Date: 2025-03-09 Test Time: 15:13:43 Pat Name: ARAMIS ROBERTS Department: Room: 0292 B Gender: M Payroll Lead: [id number] : 1955 Requested By: AMIRA MILNER Order Number: [id number] Reading MD: Joseph Sanderson Measurements Intervals [place] Rate: 69 P: 54 [place]: 180 QRS: -36 QRSD: 90 T: 45 QT: 383 QTc: 411 Interpretive Statements Sinus rhythm Left axis deviation Abnormal R-wave progression, early transition Electronically Signed On 03-13-2025 17:24:37 PDT by Joseph Sanderson Please click the below link to view image of tracing.
[2025-03-11] MEDS: DOCUSATE SOD 100 MG CAP PO PRN (09:07)
--- NOTE | 2025-03-11 10:17 | DVH ---
C-ARM FLUOROSCOPY: PROCEDURE: Retrograde nephrogram with stent FLUOROSCOPY TIME: 221.6 seconds Air Kerma: 37.5 mgy FINDINGS: Spot intraoperative C arm radiographs demonstrating retrograde nephrogram with stent. IMPRESSION: Please refer to surgical report for detailed findings.
[2025-03-11] MEDS ORDERED: GABAPENTIN 100 MG CAP PO ONE (12:39)
--- NOTE | 2025-03-11 13:19 | DVHPN2 ---
Reviewed: Care Plan, H&P, Labs, Medications, Previous Orders, Radiology Changes from previous H/P or p: No Changes Eyes: No Pain, No Vision change, No Conjunctivae inflammation, No Eyelid inflammation, No Other, No Redness ENT: No Ear pain, No Ear discharge, No Nose pain, No Nose discharge, No Nose congestion, No Mouth pain, No Mouth swelling, No Throat pain, No Throat swelling, No Other Cardiovascular: No Chest Pain, No Palpitations, No Orthopnea, No Paroxysmal Noc. Dyspnea, No Edema, No Lt Headedness, No Other Respiratory: No Cough, No Dry, No Shortness of breath, No SOB with excertion, No Wheezing, No Hemoptysis, No Pleuritic Pain, No Sputum, No Other Gastrointestinal: No Nausea, No Vomiting, No Abdominal Pain, No Diarrhea, No Constipation, No Melena, No Hematochezia, No Other Genitourinary: No Dysuria, No Frequency, No Incontinence, No Hematuria, No Retention; Other (Left flank pain, left nephrostomy tube.) Musculoskeletal: No other, No neck pain, No shoulder pain, No arm pain, No back pain, No hand pain, No leg pain, No foot pain Skin: No Rash, No Lesions, No Jaundice, No Bruising, No Other Objective Vitals Vital Signs Date Time Temp Pulse Resp B/P (MAP) Pulse Ox O2 Delivery O2 Flow Rate FiO2 03/11/25 09:00 98.4 70 16 126/68 (87) 96 98.4 03/11/25 08:00 Room Air* 0 21 Intake/Output Intake and Output 03/11/25 07:00 Intake Total 100 ml Output Total 1450 ml Balance -1350 ml Intake Oral 100 ml Output Urine Total 1450 ml Medications Current Medications Medications Dose Ordered Sig/Josep Route Start Time Stop Time Status Last Admin Dose Admin Atorvastatin Calcium 40 mg HS PO 03/08/25 22:00 03/10/25 21:39 40 MG Lisinopril 20 mg DAILY PO 03/09/25 10:00 03/11/25 08:58 20 MG Diagnostic Test (Pha) 1 strip ACHS 03/08/25 17:00 03/11/25 11:37 1 STRIP Insulin Human Regular ACHS SC 03/08/25 17:00 03/11/25 11:38 6 UNITS Dextrose 50 ml UD PRN IV 03/08/25 13:00 Sodium Chloride 10 ml Q8HR IV 03/08/25 14:00 03/11/25 13:01 10 ML Acetaminophen/ Hydrocodone Bitart 1 tab Q4HP PRN PO 03/08/25 13:00 03/10/25 20:54 1 TAB Ondansetron HCl 4 mg Q4HP PRN IV 03/08/25 13:00 Docusate Sodium 100 mg BIDPRN PRN PO 03/08/25 13:00 03/11/25 09:07 100 MG Acetaminophen 650 mg Q6HP PRN PO 03/08/25 13:00 Nitroglycerin 0.4 mg Q5MINP PRN SL 03/08/25 14:15 Morphine Sulfate 2 mg Q30M PRN IV 03/08/25 14:15 Ceftriaxone Sodium 50 ml @ 100 mls/hr DAILY@09 IV 03/10/25 09:00 03/11/25 08:59 100 MLS/HR Laboratory Results Laboratory Tests 03/09/25 04:28 Urinalysis Test 03/09/25 01:30 Urine Color Brown (Yellow) H Urine Clarity Ex.turbid (Clear) Urine pH 6.0 (5.0-9.0) Urine Specific [place] 1.010 (1.001-1.035) Urine Protein 1+ (Negative) H Urine Ketones Negative (Negative) Urine Blood 2+ /uL (Negative) H Urine Nitrite 1+ (Negative) H Urine Bilirubin Negative (Negative) Urine Urobilinogen Normal mg/dL (Negative) Urine Leukocyte Esterase 2+ /uL (Negative) Urine RBC 24 /hpf (0 - 3) Urine WBC Clumps Present /hpf (None Seen) Urine Microscopic WBC 4148 /HPF (0-3) H Urine Squamous Epithelial Cells None seen /hpf (<5) Urine Bacteria Few /hpf (None Seen) H Urine Glucose Normal mg/dL (Normal) Microbiology Microbiology Date/Time Source Procedure Growth Status 03/09/25 01:30 Voided Urine Urine Culture - Final Enterobacter cloacae Complete 03/08/25 11:28 Blood Blood Culture - Preliminary NO GROWTH AFTER 72 HOURS OF INCUBATION. Resulted Labs and/or images reviewed: Labs reviewed by me, Image(s) reviewed by me Assessment/Plan Assessment/Plan Right flank pain Right ureteral stone 6 mm: Status post cystoscopy with left ureteral stent placement removal of left percutaneous nephrostomy tube and right ureteral stent placement by Urology Dr. Marquez on 03/10/2025 Sepsis secondary to urinary tract infection Sepsis secondary to urinary tract infection: Blood cultures negative, urine cultures growing Enterobacter cloacae K, DC Rocephin start Levaquin 500 mg IV daily Diabetes Hypertension Hypercholesterolemia History of CVA x3 History of kidney stones Possible discharge home on 03/12/2025 on cipro Urology cleared for discharge but patient has sepsis secondary to UTI Plan discussed with: Patient My Orders Orders - AMIRA MILNER MD Procedure Category Date Status Time C Arm Fluoroscopy Up XY 03/10/25 Resulted To 60min 09:46 Kub Abdomen Single XY 03/10/25 Resulted View 09:47 * Braker [employer] Train CONS 03/11/25 Transmitted Consult Date of Service: Mar 11, 2025 Billing Provider: AMIRA MILNER MD Common Visit Codes: [id number] INP/OBS CARE(HIGH) AMIRA MILNER MD Mar 11, 2025 13:19
--- NOTE | 2025-03-11 22:36 | DVHPN2 ---
Progress Note - Dictate Date Seen: Mar 11, 2025 Medical Necessity Reason Pt with a Central, PICC or Fol: Yes Subjective Patient was seen and evaluated in follow up. Patient is s/p cystoscopy with left retrograde pyelogram, left ureteroscopic laser lithotripsy with left ureteral stent placement, removal of left percutaneous nephrostomy tube, cystoscopy with right retrograde pyelogram and right ureteral stent placement. Patient tolerated procedure well. GLUC [id number]. vital signs Vital Sign Date Time Temp Pulse Resp B/P (MAP) Pulse Ox O2 Delivery O2 Flow Rate FiO2 03/11/25 09:00 98.4 70 16 126/68 (87) 96 98.4 03/11/25 08:00 Room Air* 0 21 Total Intake and Output 03/10/25 03/10/25 03/11/25 15:00 23:00 07:00 Intake Total 0 ml 100 ml Output Total 800 ml 650 ml Balance -800 ml -550 ml medications Current Medications Medications Dose Ordered Sig/Josep Route Start Time Stop Time Status Last Admin Dose Admin Atorvastatin Calcium 40 mg HS PO 03/08/25 22:00 03/10/25 21:39 40 MG Lisinopril 20 mg DAILY PO 03/09/25 10:00 03/11/25 08:58 20 MG Diagnostic Test (Pha) 1 strip ACHS 03/08/25 17:00 03/11/25 11:37 1 STRIP Insulin Human Regular ACHS SC 03/08/25 17:00 03/11/25 11:38 6 UNITS Dextrose 50 ml UD PRN IV 03/08/25 13:00 Sodium Chloride 10 ml Q8HR IV 03/08/25 14:00 03/11/25 07:04 10 ML Acetaminophen/ Hydrocodone Bitart 1 tab Q4HP PRN PO 03/08/25 13:00 03/10/25 20:54 1 TAB Ondansetron HCl 4 mg Q4HP PRN IV 03/08/25 13:00 Docusate Sodium 100 mg BIDPRN PRN PO 03/08/25 13:00 03/11/25 09:07 100 MG Acetaminophen 650 mg Q6HP PRN PO 03/08/25 13:00 Nitroglycerin 0.4 mg Q5MINP PRN SL 03/08/25 14:15 Morphine Sulfate 2 mg Q30M PRN IV 03/08/25 14:15 Ceftriaxone Sodium 50 ml @ 100 mls/hr DAILY@09 IV 03/10/25 09:00 03/11/25 08:59 100 MLS/HR objective GENERAL: Alert and oriented x 3. No acute distress. EYES: PERRL, EOMI. Anicteric. HENT: Moist mucous membranes. LUNGS: Clear to auscultation bilaterally. CARDIOVASCULAR: Regular rate and rhythm. ABDOMEN: Soft, nontender and nondistended. EXTREMITIES: No edema. NEUROLOGIC: No focal neurological deficits. SKIN: Warm, dry. laboratory and microbiology Laboratory Tests 03/09/25 04:28 Test 03/09/25 04:28 Range/Units Serum Glucose 76 74-106 mg/dL Problem List Preprocedural cardiovascular examination. Hypertension. Dyslipidemia. Left and right ureteral stones. Right renal stone. Multiple CVAs with right-sided deficit. Type 2 diabetes mellitus. Assessment/Plan Continued all current supportive medical care. Morphine and [place] for pain management. Lipitor. IV antibiotics as ordered. Nitro SL. Additional plan as per the hospital course. Plan discussed with: Patient ENA MCKOY MD Mar 11, 2025 12:45
[2025-03-12] VITALS (8 sets, daily range): BP systolic 94–133; BP diastolic 57–77; PULSE 71–93; RESP 16–18; TEMP 97.7–98.4; O2SAT 94–100
--- NOTE | 2025-03-12 10:55 | ECG ---
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
--- NOTE | 2025-03-12 12:03 | DVHPN2 ---
Reviewed: Care Plan, H&P, Labs, Medications, Previous Orders, Radiology Changes from previous H/P or p: No Changes Eyes: No Pain, No Vision change, No Conjunctivae inflammation, No Eyelid inflammation, No Other, No Redness ENT: No Ear pain, No Ear discharge, No Nose pain, No Nose discharge, No Nose congestion, No Mouth pain, No Mouth swelling, No Throat pain, No Throat swelling, No Other Cardiovascular: No Chest Pain, No Palpitations, No Orthopnea, No Paroxysmal Noc. Dyspnea, No Edema, No Lt Headedness, No Other Respiratory: No Cough, No Dry, No Shortness of breath, No SOB with excertion, No Wheezing, No Hemoptysis, No Pleuritic Pain, No Sputum, No Other Gastrointestinal: No Nausea, No Vomiting, No Abdominal Pain, No Diarrhea, No Constipation, No Melena, No Hematochezia, No Other Genitourinary: No Dysuria, No Frequency, No Incontinence, No Hematuria, No Retention; Other (Left flank pain, left nephrostomy tube.) Musculoskeletal: No other, No neck pain, No shoulder pain, No arm pain, No back pain, No hand pain, No leg pain, No foot pain Skin: No Rash, No Lesions, No Jaundice, No Bruising, No Other Objective Vitals Vital Signs Date Time Temp Pulse Resp B/P (MAP) Pulse Ox O2 Delivery O2 Flow Rate FiO2 03/12/25 09:28 120/57 03/12/25 09:00 97.8 71 16 99 97.8 03/12/25 08:00 Room Air* 0 21 Intake/Output Intake and Output 03/12/25 07:00 Intake Total 1374 ml Output Total 1975 ml Balance -601 ml Intake Oral 1274 ml IV Total 100 ml Output Urine Total 1975 ml Medications Current Medications Medications Dose Ordered Sig/Josep Route Start Time Stop Time Status Last Admin Dose Admin Atorvastatin Calcium 40 mg HS PO 03/08/25 22:00 03/11/25 21:46 40 MG Lisinopril 20 mg DAILY PO 03/09/25 10:00 03/12/25 09:28 20 MG Diagnostic Test (Pha) 1 strip ACHS 03/08/25 17:00 03/12/25 06:37 1 STRIP Insulin Human Regular ACHS SC 03/08/25 17:00 03/11/25 21:45 3 UNITS Dextrose 50 ml UD PRN IV 03/08/25 13:00 Sodium Chloride 10 ml Q8HR IV 03/08/25 14:00 03/12/25 06:00 10 ML Acetaminophen/ Hydrocodone Bitart 1 tab Q4HP PRN PO 03/08/25 13:00 03/10/25 20:54 1 TAB Ondansetron HCl 4 mg Q4HP PRN IV 03/08/25 13:00 Docusate Sodium 100 mg BIDPRN PRN PO 03/08/25 13:00 03/11/25 09:07 100 MG Acetaminophen 650 mg Q6HP PRN PO 03/08/25 13:00 Nitroglycerin 0.4 mg Q5MINP PRN SL 03/08/25 14:15 Morphine Sulfate 2 mg Q30M PRN IV 03/08/25 14:15 Levofloxacin/ Dextrose 100 ml @ 100 mls/hr DAILY IV 03/12/25 10:00 03/12/25 09:28 100 MLS/HR Laboratory Results Laboratory Tests 03/09/25 04:28 Urinalysis Test 03/09/25 01:30 Urine Color Brown (Yellow) H Urine Clarity Ex.turbid (Clear) Urine pH 6.0 (5.0-9.0) Urine Specific [place] 1.010 (1.001-1.035) Urine Protein 1+ (Negative) H Urine Ketones Negative (Negative) Urine Blood 2+ /uL (Negative) H Urine Nitrite 1+ (Negative) H Urine Bilirubin Negative (Negative) Urine Urobilinogen Normal mg/dL (Negative) Urine Leukocyte Esterase 2+ /uL (Negative) Urine RBC 24 /hpf (0 - 3) Urine WBC Clumps Present /hpf (None Seen) Urine Microscopic WBC 4148 /HPF (0-3) H Urine Squamous Epithelial Cells None seen /hpf (<5) Urine Bacteria Few /hpf (None Seen) H Urine Glucose Normal mg/dL (Normal) Microbiology Microbiology Date/Time Source Procedure Growth Status 03/09/25 01:30 Voided Urine Urine Culture - Final Enterobacter cloacae Complete 03/08/25 11:28 Blood Blood Culture - Preliminary NO GROWTH AFTER 72 HOURS OF INCUBATION. Resulted Labs and/or images reviewed: Labs reviewed by me, Image(s) reviewed by me Assessment/Plan Assessment/Plan Right flank pain Right ureteral stone 6 mm: Status post cystoscopy with left ureteral stent placement removal of left percutaneous nephrostomy tube and right ureteral stent placement by Urology Dr. Marquez on 03/10/2025 Sepsis secondary to urinary tract infection Sepsis secondary to urinary tract infection: Blood cultures negative, urine cultures growing Enterobacter cloacae Gina, [place] Rocephin start Levaquin 500 mg IV daily Diabetes Hypertension Hypercholesterolemia History of CVA x3 History of kidney stones Possible discharge home on 03/12/2025 on cipro Urology cleared for discharge but patient has sepsis secondary to UTI Plan discussed with: Patient My Orders Orders - AMIRA MILNER MD Procedure Category Date Status Time * Coffee Sommelier CONS 03/11/25 Transmitted Consult Levofloxacin 500mg PHA 03/12/25 In Process (Levaquin 500mg/ 100m 10:00 Date of Service: Mar 12, 2025 Billing Provider: AMIRA MILNER MD Common Visit Codes: [id number] INP/OBS CARE(HIGH) AMIRA MILNER MD Mar 12, 2025 12:03
--- NOTE | 2025-03-12 19:18 | DVHPN2 ---
Progress Note - Dictate Date Seen: Mar 12, 2025 Medical Necessity Reason Pt with a Central, PICC or Fol: Yes Subjective Patient was seen and evaluated in follow up. Patient complains of penile discomfort. BS are WNL. Urine culture grew Enterobacter cloacae. vital signs Vital Sign Date Time Temp Pulse Resp B/P (MAP) Pulse Ox O2 Delivery O2 Flow Rate FiO2 03/12/25 09:28 120/57 03/12/25 09:00 97.8 71 16 99 97.8 03/12/25 08:00 Room Air* 0 21 Total Intake and Output 03/11/25 03/11/25 03/12/25 15:00 23:00 07:00 Intake Total 774 ml 600 ml Output Total 575 ml 1400 ml Balance 199 ml -800 ml medications Current Medications Medications Dose Ordered Sig/Josep Route Start Time Stop Time Status Last Admin Dose Admin Atorvastatin Calcium 40 mg HS PO 03/08/25 22:00 03/11/25 21:46 40 MG Lisinopril 20 mg DAILY PO 03/09/25 10:00 03/12/25 09:28 20 MG Diagnostic Test (Pha) 1 strip ACHS 03/08/25 17:00 03/12/25 11:30 1 STRIP Insulin Human Regular ACHS SC 03/08/25 17:00 03/11/25 21:45 3 UNITS Dextrose 50 ml UD PRN IV 03/08/25 13:00 Sodium Chloride 10 ml Q8HR IV 03/08/25 14:00 03/12/25 06:00 10 ML Acetaminophen/ Hydrocodone Bitart 1 tab Q4HP PRN PO 03/08/25 13:00 03/10/25 20:54 1 TAB Ondansetron HCl 4 mg Q4HP PRN IV 03/08/25 13:00 Docusate Sodium 100 mg BIDPRN PRN PO 03/08/25 13:00 03/11/25 09:07 100 MG Acetaminophen 650 mg Q6HP PRN PO 03/08/25 13:00 Nitroglycerin 0.4 mg Q5MINP PRN SL 03/08/25 14:15 Morphine Sulfate 2 mg Q30M PRN IV 03/08/25 14:15 Levofloxacin/ Dextrose 100 ml @ 100 mls/hr DAILY IV 03/12/25 10:00 03/12/25 09:28 100 MLS/HR objective GENERAL: Alert and oriented x 3. No acute distress. EYES: PERRL, EOMI. Anicteric. HENT: Moist mucous membranes. LUNGS: Clear to auscultation bilaterally. CARDIOVASCULAR: Regular rate and rhythm. ABDOMEN: Soft, nontender and nondistended. EXTREMITIES: No edema. NEUROLOGIC: No focal neurological deficits. SKIN: Warm, dry. laboratory and microbiology Laboratory Tests 03/09/25 04:28 Test 03/09/25 04:28 Range/Units Serum Glucose 76 74-106 mg/dL Problem List Preprocedural cardiovascular examination. Hypertension. Dyslipidemia. Left and right ureteral stones. Right renal stone. Multiple CVAs with right-sided deficit. Type 2 diabetes mellitus. Assessment/Plan Continued all current supportive medical care. Morphine for pain management. IV antibiotics as ordered. Nitro SL. Additional plan as per the hospital course. Plan discussed with: Patient ENA MCKOY MD Mar 12, 2025 12:53
[2025-03-13] VITALS (8 sets, daily range): BP systolic 100–119; BP diastolic 64–82; PULSE 70–98; RESP 16–18; TEMP 98–98.4; O2SAT 94–99
--- NOTE | 2025-03-13 13:49 | DVHPN2 ---
Reviewed: Care Plan, H&P, Labs, Medications, Previous Orders, Radiology Changes from previous H/P or p: No Changes Eyes: No Pain, No Vision change, No Conjunctivae inflammation, No Eyelid inflammation, No Other, No Redness ENT: No Ear pain, No Ear discharge, No Nose pain, No Nose discharge, No Nose congestion, No Mouth pain, No Mouth swelling, No Throat pain, No Throat swelling, No Other Cardiovascular: No Chest Pain, No Palpitations, No Orthopnea, No Paroxysmal Noc. Dyspnea, No Edema, No Lt Headedness, No Other Respiratory: No Cough, No Dry, No Shortness of breath, No SOB with excertion, No Wheezing, No Hemoptysis, No Pleuritic Pain, No Sputum, No Other Gastrointestinal: No Nausea, No Vomiting, No Abdominal Pain, No Diarrhea, No Constipation, No Melena, No Hematochezia, No Other Genitourinary: No Dysuria, No Frequency, No Incontinence, No Hematuria, No Retention; Other (Left flank pain, left nephrostomy tube.) Musculoskeletal: No other, No neck pain, No shoulder pain, No arm pain, No back pain, No hand pain, No leg pain, No foot pain Skin: No Rash, No Lesions, No Jaundice, No Bruising, No Other Objective Vitals Vital Signs Date Time Temp Pulse Resp B/P (MAP) Pulse Ox O2 Delivery O2 Flow Rate FiO2 03/13/25 12:15 98.0 75 16 105/68 (80) 94 98.0 03/12/25 20:00 Room Air* 0 21 Intake/Output Intake and Output 03/13/25 07:00 Intake Total 725 ml Output Total 1600 ml Balance -875 ml Intake Oral 625 ml IV Total 100 ml Output Urine Total 1600 ml # Bowel Movements 3 Medications Current Medications Medications Dose Ordered Sig/Josep Route Start Time Stop Time Status Last Admin Dose Admin Atorvastatin Calcium 40 mg HS PO 03/08/25 22:00 03/12/25 21:13 40 MG Lisinopril 20 mg DAILY PO 03/09/25 10:00 03/12/25 09:28 20 MG Diagnostic Test (Pha) 1 strip ACHS 03/08/25 17:00 03/13/25 06:20 1 STRIP Insulin Human Regular ACHS SC 03/08/25 17:00 03/11/25 21:45 3 UNITS Dextrose 50 ml UD PRN IV 03/08/25 13:00 Sodium Chloride 10 ml Q8HR IV 03/08/25 14:00 03/13/25 06:20 10 ML Acetaminophen/ Hydrocodone Bitart 1 tab Q4HP PRN PO 03/08/25 13:00 03/10/25 20:54 1 TAB Ondansetron HCl 4 mg Q4HP PRN IV 03/08/25 13:00 Docusate Sodium 100 mg BIDPRN PRN PO 03/08/25 13:00 03/13/25 11:27 100 MG Acetaminophen 650 mg Q6HP PRN PO 03/08/25 13:00 Nitroglycerin 0.4 mg Q5MINP PRN SL 03/08/25 14:15 Morphine Sulfate 2 mg Q30M PRN IV 03/08/25 14:15 Levofloxacin/ Dextrose 100 ml @ 100 mls/hr DAILY IV 03/12/25 10:00 03/13/25 11:27 100 MLS/HR Laboratory Results Laboratory Tests 03/09/25 04:28 Urinalysis Test 03/09/25 01:30 Urine Color Brown (Yellow) H Urine Clarity Ex.turbid (Clear) Urine pH 6.0 (5.0-9.0) Urine Specific [place] 1.010 (1.001-1.035) Urine Protein 1+ (Negative) H Urine Ketones Negative (Negative) Urine Blood 2+ /uL (Negative) H Urine Nitrite 1+ (Negative) H Urine Bilirubin Negative (Negative) Urine Urobilinogen Normal mg/dL (Negative) Urine Leukocyte Esterase 2+ /uL (Negative) Urine RBC 24 /hpf (0 - 3) Urine WBC Clumps Present /hpf (None Seen) Urine Microscopic WBC 4148 /HPF (0-3) H Urine Squamous Epithelial Cells None seen /hpf (<5) Urine Bacteria Few /hpf (None Seen) H Urine Glucose Normal mg/dL (Normal) Microbiology Microbiology Date/Time Source Procedure Growth Status 03/09/25 01:30 Voided Urine Urine Culture - Final Enterobacter cloacae Complete 03/08/25 11:28 Blood Blood Culture - Final NO GROWTH AFTER 5 DAYS OF INCUBATION. Complete Labs and/or images reviewed: Labs reviewed by me, Image(s) reviewed by me Assessment/Plan Assessment/Plan Right flank pain Right ureteral stone 6 mm: Status post cystoscopy with left ureteral stent placement removal of left percutaneous nephrostomy tube and right ureteral stent placement by Urology Dr. Marquez on 03/10/2025 Sepsis secondary to urinary tract infection Sepsis secondary to urinary tract infection: Blood cultures negative, urine cultures growing Enterobacter cloacae BALTAZAR Fuentes Rocephielver start Levaquin 500 mg IV daily Diabetes Hypertension Hypercholesterolemia History of CVA x3 History of kidney stones Possible discharge home on 03/12/2025 on cipro Urology cleared for discharge but patient has sepsis secondary to UTI with Enterobacter cloacae: Continue Levaquin 500 mg IV daily Plan discussed with: Patient Date of Service: Mar 13, 2025 Billing Provider: AMIRA MILNER MD Common Visit Codes: [id number] INP/OBS CARE(HIGH) AMIRA MILNER MD Mar 13, 2025 13:49
--- NOTE | 2025-03-13 16:46 | DVHPN2 ---
Progress Note - Dictate Date Seen: Mar 13, 2025 Medical Necessity Reason Pt with a Central, PICC or Fol: Yes Subjective Patient was seen and evaluated in follow up. Patient is complaining of left flank pain, left nephrostomy tube. BS remain WNL. vital signs Vital Sign Date Time Temp Pulse Resp B/P (MAP) Pulse Ox O2 Delivery O2 Flow Rate FiO2 03/13/25 09:00 98.4 87 16 113/70 (84) 95 98.4 03/12/25 20:00 Room Air* 0 21 Total Intake and Output 03/12/25 03/12/25 03/13/25 15:00 23:00 07:00 Intake Total 100 ml 475 ml 150 ml Output Total 900 ml 700 ml Balance 100 ml -425 ml -550 ml medications Current Medications Medications Dose Ordered Sig/Josep Route Start Time Stop Time Status Last Admin Dose Admin Atorvastatin Calcium 40 mg HS PO 03/08/25 22:00 03/12/25 21:13 40 MG Lisinopril 20 mg DAILY PO 03/09/25 10:00 03/12/25 09:28 20 MG Diagnostic Test (Pha) 1 strip ACHS 03/08/25 17:00 03/13/25 06:20 1 STRIP Insulin Human Regular ACHS SC 03/08/25 17:00 03/11/25 21:45 3 UNITS Dextrose 50 ml UD PRN IV 03/08/25 13:00 Sodium Chloride 10 ml Q8HR IV 03/08/25 14:00 03/13/25 06:20 10 ML Acetaminophen/ Hydrocodone Bitart 1 tab Q4HP PRN PO 03/08/25 13:00 03/10/25 20:54 1 TAB Ondansetron HCl 4 mg Q4HP PRN IV 03/08/25 13:00 Docusate Sodium 100 mg BIDPRN PRN PO 03/08/25 13:00 03/13/25 11:27 100 MG Acetaminophen 650 mg Q6HP PRN PO 03/08/25 13:00 Nitroglycerin 0.4 mg Q5MINP PRN SL 03/08/25 14:15 Morphine Sulfate 2 mg Q30M PRN IV 03/08/25 14:15 Levofloxacin/ Dextrose 100 ml @ 100 mls/hr DAILY IV 03/12/25 10:00 03/13/25 11:27 100 MLS/HR objective GENERAL: Alert and oriented x 3. No acute distress. EYES: PERRL, EOMI. Anicteric. HENT: Moist mucous membranes. LUNGS: Clear to auscultation bilaterally. CARDIOVASCULAR: Regular rate and rhythm. ABDOMEN: Soft, nontender and nondistended. EXTREMITIES: No edema. NEUROLOGIC: No focal neurological deficits. SKIN: Warm, dry. laboratory and microbiology Laboratory Tests 03/09/25 04:28 Test 03/09/25 04:28 Range/Units Serum Glucose 76 74-106 mg/dL Problem List Preprocedural cardiovascular examination. Hypertension. Dyslipidemia. Left and right ureteral stones. Right renal stone. Multiple CVAs with right-sided deficit. Type 2 diabetes mellitus. Assessment/Plan Continued all current supportive medical care. Morphine for pain management. IV antibiotics as ordered. Nitro SL. Additional plan as per the hospital course. Plan discussed with: Patient ENA MCKOY MD Mar 13, 2025 12:29
[2025-03-14 01:00] VITALS: BP 131/85; PULSE 88; RESP 16; TEMP 98.5; O2SAT 96
[2025-03-14 05:00] VITALS: BP 114/65; PULSE 82; RESP 17; TEMP 98.2; O2SAT 97
[2025-03-14 08:00] VITALS: PULSE 84; RESP 16; O2SAT 95
--- NOTE | 2025-03-14 12:43 | DVHPN2 ---
Reviewed: Care Plan, H&P, Labs, Medications, Previous Orders, Radiology Changes from previous H/P or p: No Changes Eyes: No Pain, No Vision change, No Conjunctivae inflammation, No Eyelid inflammation, No Other, No Redness ENT: No Ear pain, No Ear discharge, No Nose pain, No Nose discharge, No Nose congestion, No Mouth pain, No Mouth swelling, No Throat pain, No Throat swelling, No Other Cardiovascular: No Chest Pain, No Palpitations, No Orthopnea, No Paroxysmal Noc. Dyspnea, No Edema, No Lt Headedness, No Other Respiratory: No Cough, No Dry, No Shortness of breath, No SOB with excertion, No Wheezing, No Hemoptysis, No Pleuritic Pain, No Sputum, No Other Gastrointestinal: No Nausea, No Vomiting, No Abdominal Pain, No Diarrhea, No Constipation, No Melena, No Hematochezia, No Other Genitourinary: No Dysuria, No Frequency, No Incontinence, No Hematuria, No Retention; Other (Left flank pain, left nephrostomy tube.) Musculoskeletal: No other, No neck pain, No shoulder pain, No arm pain, No back pain, No hand pain, No leg pain, No foot pain Skin: No Rash, No Lesions, No Jaundice, No Bruising, No Other Objective Vitals Vital Signs Date Time Temp Pulse Resp B/P (MAP) Pulse Ox O2 Delivery O2 Flow Rate FiO2 03/14/25 10:00 122/82 03/14/25 08:00 84 16 95 Room Air* 0 21 03/14/25 05:00 98.2 98.2 Intake/Output Intake and Output 03/14/25 07:00 Intake Total 745 ml Output Total 950 ml Balance -205 ml Intake Oral 745 ml Output Urine Total 950 ml Medications Current Medications Medications Dose Ordered Sig/Josep Route Start Time Stop Time Status Last Admin Dose Admin Atorvastatin Calcium 40 mg HS PO 03/08/25 22:00 03/13/25 23:00 40 MG Lisinopril 20 mg DAILY PO 03/09/25 10:00 03/12/25 09:28 20 MG Diagnostic Test (Pha) 1 strip ACHS 03/08/25 17:00 03/14/25 11:36 1 STRIP Insulin Human Regular ACHS SC 03/08/25 17:00 03/11/25 21:45 3 UNITS Dextrose 50 ml UD PRN IV 03/08/25 13:00 Sodium Chloride 10 ml Q8HR IV 03/08/25 14:00 03/14/25 06:00 10 ML Acetaminophen/ Hydrocodone Bitart 1 tab Q4HP PRN PO 03/08/25 13:00 03/10/25 20:54 1 TAB Ondansetron HCl 4 mg Q4HP PRN IV 03/08/25 13:00 Docusate Sodium 100 mg BIDPRN PRN PO 03/08/25 13:00 03/13/25 11:27 100 MG Acetaminophen 650 mg Q6HP PRN PO 03/08/25 13:00 Nitroglycerin 0.4 mg Q5MINP PRN SL 03/08/25 14:15 Morphine Sulfate 2 mg Q30M PRN IV 03/08/25 14:15 Levofloxacin/ Dextrose 100 ml @ 100 mls/hr DAILY IV 03/12/25 10:00 03/14/25 08:40 100 MLS/HR Laboratory Results Laboratory Tests 03/09/25 04:28 Urinalysis Test 03/09/25 01:30 Urine Color Brown (Yellow) H Urine Clarity Ex.turbid (Clear) Urine pH 6.0 (5.0-9.0) Urine Specific [place] 1.010 (1.001-1.035) Urine Protein 1+ (Negative) H Urine Ketones Negative (Negative) Urine Blood 2+ /uL (Negative) H Urine Nitrite 1+ (Negative) H Urine Bilirubin Negative (Negative) Urine Urobilinogen Normal mg/dL (Negative) Urine Leukocyte Esterase 2+ /uL (Negative) Urine RBC 24 /hpf (0 - 3) Urine WBC Clumps Present /hpf (None Seen) Urine Microscopic WBC 4148 /HPF (0-3) H Urine Squamous Epithelial Cells None seen /hpf (<5) Urine Bacteria Few /hpf (None Seen) H Urine Glucose Normal mg/dL (Normal) Microbiology Microbiology Date/Time Source Procedure Growth Status 03/09/25 01:30 Voided Urine Urine Culture - Final Enterobacter cloacae Complete 03/08/25 11:28 Blood Blood Culture - Final NO GROWTH AFTER 5 DAYS OF INCUBATION. Complete Labs and/or images reviewed: Labs reviewed by me, Image(s) reviewed by me Assessment/Plan Assessment/Plan Right flank pain Right ureteral stone 6 mm: Status post cystoscopy with left ureteral stent placement removal of left percutaneous nephrostomy tube and right ureteral stent placement by Urology Dr. Marquez on 03/10/2025 Sepsis secondary to urinary tract infection Sepsis secondary to urinary tract infection: Blood cultures negative, urine cultures growing Enterobacter cloacae K DC Rocephin start Levaquin 500 mg IV daily Diabetes Hypertension Hypercholesterolemia History of CVA x3 History of kidney stones Plan discussed with: Patient Date of Service: Mar 14, 2025 Billing Provider: AMIRA MILNER MD Common Visit Codes: [id number] INP/OBS CARE(HIGH) AMIRA MILNER MD Mar 14, 2025 12:43
[2025-03-14] MEDS ORDERED: LEVO500T91 PO (12:45)
[2025-03-14] MEDS ORDERED: HYDR-4902 PO (12:45)
--- NOTE | 2025-03-14 12:50 | DVHDS2 ---
Discharge Summary Date of Admission Mar 08, 2025 at 14:13 Date of Discharge: Mar 14, 2025 Admitting Diagnosis Right flank pain Wounds: Cystoscopy ureteral stent placement Labs/Diagnostic Data: Laboratory Results Test 03/14/25 11:27 03/09/25 04:28 03/09/25 01:30 03/08/25 11:20 POC Glucose 127 mg/dl (70-106) White Blood Count 6.2 10^3/uL (4.4-10.8) Red Blood Count 3.69 10^6/uL (4.5-5.90) Hemoglobin 11.5 g/dL (13.5-17.5) Hematocrit 32.7 % (41.0-53.0) Mean Corpuscular Volume 88.4 fL (80.0-100.0) Mean Corpuscular Hemoglobin 31.1 pg (28.0-32.0) Mean Corpuscular Hemoglobin Concent 35.2 g/dL (32.0-36.0) Red Cell Distribution Width 13.2 % (11.8-14.3) Platelet Count 289 10^3/uL (140-450) Mean Platelet Volume 7.8 fL (6.9-10.8) Neutrophils (%) (Auto) 56.1 % (37.0-80.0) Lymphocytes (%) (Auto) 28.8 % (10.0-50.0) Monocytes (%) (Auto) 12.4 % (0.0-12.0) Eosinophils (%) (Auto) 1.9 % (0.0-7.0) Basophils (%) (Auto) 0.8 % (0.0-2.0) Neutrophils # (Auto) 3.4 10 ^3/uL (1.6-8.6) Lymphocytes # (Auto) 1.8 10 ^3/uL (0.4-5.4) Monocytes # (Auto) 0.8 10 ^3/uL (0-1.3) Eosinophils # (Auto) 0.1 10 ^3/uL (0-0.8) Basophils # (Auto) 0.1 10 ^3/uL (0-0.2) Nucleated Red Blood Cells 0.1 % Sodium Level 141 mmol/L (136-145) Potassium Level 3.7 mmol/L (3.5-5.1) Chloride Level 104 mmol/L (98-107) Carbon Dioxide Level 26 mmol/L (20-31) Anion Gap 11 (5-15) Blood Urea Nitrogen 23 mg/dL (9-23) Creatinine 1.24 mg/dL (0.700-1.30) Glomerular Filtration Rate Calc 63 mL/min (>90) BUN/Creatinine Ratio 18.5 (10.0-20.0) Serum Glucose 76 mg/dL (74-106) Calcium Level 8.5 mg/dL (8.7-10.4) Total Bilirubin 0.3 mg/dL (0.2-1.0) Aspartate Amino Transferase (AST) 17 U/L (13-40) Alanine Aminotransferase (ALT) 14 U/L (7-40) Alkaline Phosphatase 67 U/L (46-116) Total Protein 6.5 g/dL (5.7-8.2) Albumin 3.8 g/dL (3.2-4.8) Urine Color Brown (Yellow) Urine Clarity Ex.turbid (Clear) Urine pH 6.0 (5.0-9.0) Urine Specific [place] 1.010 (1.001-1.035) Urine Protein 1+ (Negative) Urine Ketones Negative (Negative) Urine Blood 2+ /uL (Negative) Urine Nitrite 1+ (Negative) Urine Bilirubin Negative (Negative) Urine Urobilinogen Normal mg/dL (Negative) Urine Leukocyte Esterase 2+ /uL (Negative) Urine RBC 24 /hpf (0 - 3) Urine WBC Clumps Present /hpf (None Seen) Urine Microscopic WBC 4148 /HPF (0-3) Urine Squamous Epithelial Cells None seen /hpf (<5) Urine Bacteria Few /hpf (None Seen) Urine Glucose Normal mg/dL (Normal) Lactic Acid Level 1.2 mmol/L (0.4-2.0) Other Laboratory Tests 03/09/25 04:28 Brief Hx & Hospital Course: 69-year-old male with a history of diabetes hypertension hypercholesterolemia CVA kidney stones came in complaining of right flank pain found to have 6 mm stone in the right ureter underwent cystoscopy with a right ureteral stent placement left ureteral stent placement and removal of left percutaneous nephrostomy tube by Urology Dr. Marquez 03/10/2025 discharge was delayed as the patient developed sepsis secondary to urinary tract infection blood cultures negative urine cultures growing E cloacae treated with IV Rocephin and changed to IV Levaquin patient feels better without any pain or fever. Discharged home on p.o. Cipro for UTI and he will follow up with the his primary Dr and Consults/Reason for consult Dr. Marquez Operations or Procedures Cystoscopy bilateral ureteral stent placement Condition at Discharge: Fair Final Diagnosis/Problems List Right flank pain Right ureteral stone 6 mm: Status post cystoscopy with left ureteral stent placement removal of left percutaneous nephrostomy tube and right ureteral stent placement by Urology Dr. Marquez on 03/10/2025 Sepsis secondary to urinary tract infection Sepsis secondary to urinary tract infection: Blood cultures negative, urine cultures growing Enterobacter cloacae K, DC Rocephin start Levaquin 500 mg IV daily Diabetes Hypertension Hypercholesterolemia History of CVA x3 History of kidney stones Discharge Disposition: Home Discharge Instruct/Medications Diet: Cardiac 2g Na,low cholest Activity: Light activity Follow Up/Referral: Follow up With the primary Dr in one week Follow up with the Urology Dr. Marquez in two weeks Resume all previous home medications Medications: Cipro [place] Transmitted to pharmacy Scheduled Aspirin (Aspir-81), 1 TAB PO DAILY, (Reported) Atorvastatin Calcium (Lipitor), 1 TAB PO DAILY, (Reported) Cephalexin (Keflex Capsule), 500 MG PO BID Cholecalciferol (Vitamin D3), 1 TAB PO DAILY, (Reported) Hydrochlorothiazide (Hydrochlorothiazide), 1 TAB PO DAILY, (Reported) Levofloxacin Hemihydrate (Levaquin 500 Mg), 1 TAB PO DAILY Lisinopril (Lisinopril), 1 TAB PO DAILY, (Reported) Metformin Hydrochloride (Metformin Hcl), 1 TAB PO BID, (Reported) Tamsulosin Hcl (Flomax), 0.4 MG PO QPM Temazepam (Restoril), 1 CAP PO QPM, (Reported) Scheduled PRN Hydrocodone-Acetaminophen (Hydrocodone Bitartrate/AC 5-325 mg), 1 TAB PO QID PRN Miscellaneous Medications Terazosin Hcl (Terazosin Hcl), 2 MG PO, (Reported) 35 (Time taken for discharge summary 35 minutes) Discharge Statement: "Patient was advised to return to the ER or call 911 if any headaches, dizziness, shortness of breath, chest pain, abdominal pain, bleeding, fevers, or worsening of medical condition. Patient was counseled about treatment plan, medications, possible side effects, patientverbalized understanding. All questions were answered to the best of my ability. This discharge took greater then 30 minutes in planning, reviewing documentation, counseling the patient, and discussing with other team members." ASSESSMENT ASSESSMENT Hospital Course Improved Assessment Right flank pain Right ureteral stone 6 mm: Status post cystoscopy with left ureteral stent placement removal of left percutaneous nephrostomy tube and right ureteral stent placement by Urology Dr. Marquez on 03/10/2025 Sepsis secondary to urinary tract infection Sepsis secondary to urinary tract infection: Blood cultures negative, urine cultures growing Enterobacter cloacae K, DC Rocephin start Levaquin 500 mg IV daily Diabetes Hypertension Hypercholesterolemia History of CVA x3 History of kidney stones Date of Service: Mar 14, 2025 Billing Provider: AMIRA MILNER MD Common Visit Codes: [id number] DISCH DAY >30min AMIRA MILNER MD Mar 14, 2025 12:50
[2025-03-14 13:07] VITALS: BP 122/82; TEMP 36.8
--- NOTE | 2025-03-14 19:50 | DVHPN2 ---
Progress Note - Dictate Date Seen: Mar 14, 2025 Medical Necessity Reason Pt with a Central, PICC or Fol: Yes Subjective Patient was seen and evaluated in follow-up. Patient has no new complaints at this time. Patient denies any cardiac symptoms. Patient is cardiac stable for discharge. vital signs Vital Sign Date Time Temp Pulse Resp B/P (MAP) Pulse Ox O2 Delivery O2 Flow Rate FiO2 03/14/25 13:07 36.8 03/14/25 10:00 122/82 03/14/25 08:00 84 16 95 Room Air* 0 21 Total Intake and Output 03/13/25 03/13/25 03/14/25 15:00 23:00 07:00 Intake Total 100 ml 645 ml Output Total 450 ml 500 ml Balance -350 ml 145 ml medications Current Medications Medications Dose Ordered Sig/Josep Route Start Time Stop Time Status Last Admin Dose Admin Atorvastatin Calcium 40 mg HS PO 03/08/25 22:00 03/13/25 23:00 40 MG Lisinopril 20 mg DAILY PO 03/09/25 10:00 03/12/25 09:28 20 MG Diagnostic Test (Pha) 1 strip ACHS 03/08/25 17:00 03/14/25 11:36 1 STRIP Insulin Human Regular ACHS SC 03/08/25 17:00 03/11/25 21:45 3 UNITS Dextrose 50 ml UD PRN IV 03/08/25 13:00 Sodium Chloride 10 ml Q8HR IV 03/08/25 14:00 03/14/25 06:00 10 ML Acetaminophen/ Hydrocodone Bitart 1 tab Q4HP PRN PO 03/08/25 13:00 03/10/25 20:54 1 TAB Ondansetron HCl 4 mg Q4HP PRN IV 03/08/25 13:00 Docusate Sodium 100 mg BIDPRN PRN PO 03/08/25 13:00 03/13/25 11:27 100 MG Acetaminophen 650 mg Q6HP PRN PO 03/08/25 13:00 Nitroglycerin 0.4 mg Q5MINP PRN SL 03/08/25 14:15 Morphine Sulfate 2 mg Q30M PRN IV 03/08/25 14:15 Levofloxacin/ Dextrose 100 ml @ 100 mls/hr DAILY IV 03/12/25 10:00 03/14/25 08:40 100 MLS/HR objective GENERAL: Alert and oriented x 3. No acute distress. EYES: PERRL, EOMI. Anicteric. HENT: Moist mucous membranes. LUNGS: Clear to auscultation bilaterally. CARDIOVASCULAR: Regular rate and rhythm. ABDOMEN: Soft, nontender and nondistended. EXTREMITIES: No edema. NEUROLOGIC: No focal neurological deficits. SKIN: Warm, dry. laboratory and microbiology Laboratory Tests 03/09/25 04:28 Test 03/09/25 04:28 Range/Units Serum Glucose 76 74-106 mg/dL Problem List Preprocedural cardiovascular examination. Hypertension. Dyslipidemia. Left and right ureteral stones. Right renal stone. Multiple CVAs with right-sided deficit. Type 2 diabetes mellitus. Assessment/Plan Continued all current supportive medical care. Morphine for pain management. IV antibiotics as ordered. Nitro SL. Additional plan as per the hospital course. Dietary Evaluation Review Comments: 1) Add 60g CCHO restriction to cardiac diet 2) Encourage optimal PO intake 3) Follow-up with urology and cardiology 4) Continue to monitor I&O, labs, and skin integrity Expected Outcomes/Goals: 1) appetite and labs to improve 2) f/u in 3-5 days Plan discussed with: Patient ENA MCKOY MD Mar 14, 2025 14:03
== END 2025-03-14 13:40 | disposition home health service (06) | DRG 446 ==
LOC: ER 09:39 → OVERFLOW 14:13 → WEST WING 21:54
PROVIDERS: ADMIT Family Medicine; ATTEND Family Medicine
PROC: BT1FZZZ Fluoroscopy of Left Kidney, Ureter and Bladder (ICD-10-PCS; 2025-03-10)
PROC: 0TC78ZZ Extirpation of Matter from Left Ureter, Via Natural or Artificial Opening Endoscopic (ICD-10-PCS; 2025-03-10)
PROC: 0T788DZ Dilation of Bilateral Ureters with Intraluminal Device, Via Natural or Artificial Opening Endoscopic (ICD-10-PCS; 2025-03-10)
PROC: 0TP5X0Z Removal of Drainage Device from Kidney, External Approach (ICD-10-PCS; 2025-03-10)
PROC: 0TC68ZZ Extirpation of Matter from Right Ureter, Via Natural or Artificial Opening Endoscopic (ICD-10-PCS; principal; 2025-03-10 18:15)
DX: T83.512A Infection and inflammatory reaction due to nephrostomy catheter, initial encounter (principal); A41.89 Other specified sepsis; N13.6 Pyonephrosis; E11.9 Type 2 diabetes mellitus without complications; E78.00 Pure hypercholesterolemia, unspecified; B96.89 Other specified bacterial agents as the cause of diseases classified elsewhere; I10 Essential (primary) hypertension; N20.2 Calculus of kidney with calculus of ureter; N40.0 Benign prostatic hyperplasia without lower urinary tract symptoms; Z86.73 Personal history of transient ischemic attack (TIA), and cerebral infarction without residual deficits; Z87.442 Personal history of urinary calculi
CPT/HCPCS: 36415; 71045; 74018; 74176; 76000; 80048; 80053; 81001; 82962; 83605; 85025; 87040; 87086; 87088; 87186; 93005; 93306; G0378; J0131; J1100; J1815; J1956; J2250; J2704